=== PATIENT | male | born 1945 | race Caucasian/White ===

== ENCOUNTER → 2017-07-23 06:32 | Outpatient (CLI) | payer MEDICARE, BC, SELFPAY ==
--- NOTE | 2017-07-23 11:27 | STRESSREP ---
Stress Test Report Date: 07/23/2017 Procedure: Exercise tolerance test/imaging study Indications: CAD status post PCI Consent: Per the patient Procedure: The patient exercised on a Roman protocol for 6 minutes completing Stage II achieving a peak heart rate of 130 bpm (87 % predicted maximal heart rate) with a peak blood pressure 172/68 mmHg and a peak MET capacity of 7 METs. The baseline ECG demonstrated normal sinus rhythm. The peak exercise ECG demonstrated somatic/motion artifact with no obvious ECG changes. There was a rare PAC during exercise and an occasional PVC during exercise and recovery. The functional capacity was considered average. There was chest tightness and dyspnea at peak exercise with spontaneous resolution towards baseline in recovery. The examination was discontinued secondary to chest discomfort and dyspnea. Impression: 1. Technically adequate (percent predicted maximal heart rate greater than 85%) exercise tolerance test 2. Peak exercise ECG somatic/motion artifact with no obvious ECG changes 3. There was a rare PAC during exercise and an occasional PVC during exercise and recovery. 4. Nuclear images pending Myocardial perfusion imaging study: Technique: The patient was injected with 14.3 mCi of technetium 99m Cardiolite and subsequently rest SPECT Cardiolite nuclear imaging was obtained in the horizontal long, vertical long, and short axis views. The patient exercised on a Roman protocol for 6 minutes completing Stage II achieving a peak heart rate of 130 bpm (87 % predicted maximal heart rate) with a peak blood pressure 172/68 mmHg and a peak MET capacity of 7 METs. The patient was injected with 44.5 mCi of technetium 99m Cardiolite and subsequently stress SPECT Cardiolite nuclear imaging was obtained in the horizontal long, vertical long, and short axis views. A gated Cardiolite study at peak stress was obtained. Interpretation: Rest and stress SPECT Cardiolite nuclear imaging status post realignment, normalization, and attenuation correction, demonstrates the appearance of relative uniform tracer uptake and myocardial perfusion appearing within normal limits. There is end systolic thickening and brightening. The gated Cardiolite study demonstrates myocardial thickening and inward wall motion. The reported LVEF is 56 %. Impression: 1. Rest and stress SPECT Cardiolite nuclear imaging demonstrate relative uniform tracer uptake and myocardial perfusion appearing within normal limits. 2. The gated Cardiolite study reports an LVEF of 56 %. This note was generated with [employer] software. It may contain incorrect words, spelling, and punctuation that were not noted in checking the note before signing.
--- NOTE | 2017-07-23 11:35 | STRESSREP_ITS ---
Stress Test Report Date: 07/23/2017 Procedure: Exercise tolerance test/imaging study Indications: CAD status post PCI Consent: Per the patient Procedure: The patient exercised on a Roman protocol for 6 minutes completing Stage II achieving a peak heart rate of 130 bpm (87 % predicted maximal heart rate) with a peak blood pressure 172/68 mmHg and a peak MET capacity of 7 METs. The baseline ECG demonstrated normal sinus rhythm. The peak exercise ECG demonstrated somatic/motion artifact with no obvious ECG changes. There was a rare PAC during exercise and an occasional PVC during exercise and recovery. The functional capacity was considered average. There was chest tightness and dyspnea at peak exercise with spontaneous resolution towards baseline in recovery. The examination was discontinued secondary to chest discomfort and dyspnea. Impression: 1. Technically adequate (percent predicted maximal heart rate greater than 85% ) exercise tolerance test 2. Peak exercise ECG somatic/motion artifact with no obvious ECG changes 3. There was a rare PAC during exercise and an occasional PVC during exercise and recovery. 4. Nuclear images pending Myocardial perfusion imaging study: Technique: The patient was injected with 14.3 mCi of technetium 99m Cardiolite and subsequently rest SPECT Cardiolite nuclear imaging was obtained in the horizontal long, vertical long, and short axis views. The patient exercised on a Roman protocol for 6 minutes completing Stage II achieving a peak heart rate of 130 bpm (87 % predicted maximal heart rate) with a peak blood pressure 172/ 68 mmHg and a peak MET capacity of 7 METs. The patient was injected with 44.5 mCi of technetium 99m Cardiolite and subsequently stress SPECT Cardiolite nuclear imaging was obtained in the horizontal long, vertical long, and short axis views. A gated Cardiolite study at peak stress was obtained. Interpretation: Rest and stress SPECT Cardiolite nuclear imaging status post realignment, normalization, and attenuation correction, demonstrates the appearance of relative uniform tracer uptake and myocardial perfusion appearing within normal limits. There is end systolic thickening and brightening. The gated Cardiolite study demonstrates myocardial thickening and inward wall motion. The reported LVEF is 56 %. Impression: 1. Rest and stress SPECT Cardiolite nuclear imaging demonstrate relative uniform tracer uptake and myocardial perfusion appearing within normal limits. 2. The gated Cardiolite study reports an LVEF of 56 %. This note was generated with [employer] software. It may contain incorrect words, spelling, and punctuation that were not noted in checking the note before signing.
== END ==
PROVIDERS: Family Provider Family Medicine; PCP Family Medicine; Visit Provider Internal Medicine Cardiovascular Disease
DX: I25.10 Atherosclerotic heart disease of native coronary artery without angina pectoris (principal); I10 Essential (primary) hypertension
CPT/HCPCS: 78452; 93017; A9500; A4216

== ENCOUNTER 2017-08-04 10:14 | Day surgery (SDC) | payer MEDICARE, BC, SELFPAY ==
[2017-08-04] VITALS (7 sets, daily range): BP systolic 82–110; BP diastolic 32–60; PULSE 56–80; RESP 16–18; TEMP 35.8–36.3; O2SAT 96–99; BMI 34.8
--- NOTE | 2017-08-04 11:47 | COLBX_PTH ---
PATIENT: MARIANELA GUZMAN LOC: EN U#:[id number] AGE/SX: 72/M ROOM: RE08/04/[address]: Dr. Asha Vega MD : 1945 BED: DIS: 08/04/2017 SPEC #: [id number] RECD: 08/04/17 12:07 STATUS: UMANG NATE #: [id number] MATT: 08/04/17 11:[address]: Asha Vega DEPT: SURGICAL PATHOLOGY RECD BY: Rachael Addison ENTERED: 08/04/17 12:51 SP TYPE: COLON BX OTHR DR: Dr. Boston Pozo MD Tissues: POLYP Procedures: Surgery Specimen Level IV HEADER OPERATION: Colonoscopy with polypectomy PRE-OP DIAGNOSIS: Screening TISSUE SUBMITTED: Right colon polyp MICROSCOPIC DIAGNOSIS Right colon polyp, biopsy: Tubular adenoma. AM:[place] 08/05/17 MICROSCOPIC DESCRIPTION Slides are reviewed. GROSS DESCRIPTION Received in fixative is one container labeled with the patient's name and designated right colon polyp. The specimen consists of one irregular fragment of light esqueda soft tissue that measures 0.5 x 0.5 x 0.1 cm. The specimen is totally submitted in one cassette. / AM:[place] 08/04/17 TC:5 CPT: 76933
--- NOTE | 2017-08-04 12:43 | OP.PCM_ITS ---
Report of Operation Date of Procedure: 08/04/17 Pre-Operative Diagnosis: screening for colon cancer Post-Operative Diagnosis: right colon polyp Surgery/Procedure Performed:: colonoscopy with polypectomy with cold snare Description of Surgical Findings:: right colon polyp < 1 cm Type of Anesthesia:: MAC Anesthesiologist: Sivakumar Castillo Specimen's removed: right colon polyp Estimated Blood Loss (mL): none Fluids Replaced: 600 cc RL Description of Procedure: After informed consent was given, the patient was brought to the endoscopy suite and placed in the supine position. Appropriate time out protocol was followed. Appropriate cardiac, blood pressure, and pulse oximetry monitoring was placed. After stable vital signs were noted, the patient was given intravenous conscious sedation by the anesthesia provider. The patient was then placed in the left lateral decubitis position. The colonoscope was lubricated and carefully inserted into the patient?s anus. It was then advanced into the rectum, then into the sigmoid colon, then into the left descending colon, past the splenic flexure, into the transverse colon, past the hepatic flexure, then down into the right descending colon and into the cecum. The cecum was identified by: transillumination, confluence of the tenae coli, identification of the ileocecal valve and appendiceal orifice, and external pressure with indentation. The colon cleansing preparation was adequate. In the right colon, proximally, a small, < 1 cm, polyp was noted. It was removed completely using cold snare device. The colonoscope was slowly retracted back and the entire colonic mucosa was examined. There was no evidence of extrinsic compression and no inflammatory changes were noted. No intraluminal obstructing lesions, no strictures, and no ulcers were noted. No other polyps were noted. Retroflex view in the rectum revealed no lesions in the rectal vault except for hemorrhoidal changes. The colonoscope was removed intact. Patient tolerated procedure well. - Complications none noted
== END 2017-08-04 13:20 | disposition home or self-care (01) ==
LOC: EN 10:14 → AC 10:16
PROVIDERS: Family Provider Family Medicine; PCP Family Medicine; Visit Provider Surgery
PROC: 0DJD8ZZ Inspection of Lower Intestinal Tract, Via Natural or Artificial Opening Endoscopic (ICD-10-PCS; CPT 45378; principal; 2017-08-04 11:25)
DX: Z12.11 Encounter for screening for malignant neoplasm of colon (principal); D12.2 Benign neoplasm of ascending colon; K64.9 Unspecified hemorrhoids; Z86.010 Personal history of colon polyps; D56.3 Thalassemia minor; I25.10 Atherosclerotic heart disease of native coronary artery without angina pectoris; E78.00 Pure hypercholesterolemia, unspecified; I12.9 Hypertensive chronic kidney disease with stage 1 through stage 4 chronic kidney disease, or unspecified chronic kidney disease; N18.3 Chronic kidney disease, stage 3 (moderate); M10.9 Gout, unspecified; M47.896 Other spondylosis, lumbar region; M19.90 Unspecified osteoarthritis, unspecified site; E03.9 Hypothyroidism, unspecified; G25.81 Restless legs syndrome; Z87.19 Personal history of other diseases of the digestive system; Z95.5 Presence of coronary angioplasty implant and graft; Z87.891 Personal history of nicotine dependence; Z79.82 Long term (current) use of aspirin; Z79.899 Other long term (current) drug therapy
CPT/HCPCS: 45385; 88305; J7120

== ENCOUNTER 2017-09-23 07:25 | Emergency (ER) | payer MEDICARE, BC, SELFPAY ==
[2017-09-23 07:26] VITALS: BP 140/73; PULSE 74; RESP 16; TEMP 36.4; O2SAT 95; BMI 35.4
--- NOTE | 2017-09-23 07:47 | CT_ITS ---
STUDY: CT ABDOMEN AND PELVIS WITH CONTRAST REASON FOR EXAM: Male, 72 years old. ABD PAIN RADIATING TO LB AND ABD, PAIN WORSENING OVER LAST 10 WEEKS, HTN,CABG, THALASSEMIA MINOR BLOOD DISORDER, SURG-BILAT INGUINAL HERNIA REPAIR. RADIATION DOSAGE (If Supplied By Facility): CTDIvol = ( 20.13 ) mGy, DLP = ( 2033.92 ) mGycm TECHNIQUE: Transaxial images were obtained from the dome of the diaphragm to the symphysis pubis with oral contrast. 100 ml of Isovue 300 contrast was administered. Sagittal and coronal images were reconstructed. Individualized dose optimization techniques were used for this CT. COMPARISON: None. FINDINGS: The visualized lung bases are unremarkable. The visualized portions of the heart are within normal limits. There is decreased attenuation of the liver consistent with steatosis. Normal gallbladder and extrahepatic biliary system. Normal spleen. Normal pancreas. Normal bilateral adrenal glands. Normal right kidney. Normal left kidney. Normal visualized stomach. Normal small intestine. There are multiple colonic diverticula consistent with diverticulosis. The appendix is visualized and appears normal. There is diffuse atherosclerotic calcification of the abdominal aorta, without a demonstrated aneurysm. Normal inferior vena cava. Normal retroperitoneum. Normal urinary bladder. Normal abdominal wall. There are diffuse degenerative changes of the visualized lumbar spine. CT/Abdomen/Pelvis WITH Contrast IMPRESSION: Diverticulosis. Liver steatosis. Electronically Signed: Catrina Field MD at 10:30 EDT Tel , Service support ,
[2017-09-23 08:28] LABS: ALB/GLOB Ratio 0.9 RATIO (0.9-2.4); AST(SGOT) 37 U/L (15-37); Absolute Neutrophil Count 5.2 X10^3/uL (2.0-7.7); Alanine Aminotransfer ALT/SGPT 48 U/L (16-61); Albumin, Serum 3.6 g/dL (3.2-5.0); Alkaline Phosphatase 89 U/L (45-117); Anion Gap 9 (5-15); BUN 19 mg/dL (7-18); BUN/Creat Ratio 17.9 RATIO (10-20); Basophil# 0.01 X10^3/uL; Basophil% 0.1 % (0-1); Calcium,Total 8.9 mg/dL (8.5-10.1); Chloride 105 mmol/L (98-107); Creatinine, Serum 1.06 mg/dL (0.70-1.30); EST Glomerular Filtration Rate 73 mL/min (>60); Eosinophil# 0.37 X10^3/uL; Eosinophils% 4.4 % (0-5); Est Glom Filt Rate - Afr Amer 89 mL/min (>60); Estimated Creatinine Clearance 57.68 ml/min; Globulin 3.8 g/dL (2.2-4.2); Glucose 105 mg/dL (74-106); Hematocrit 35.4 % (40-54); Hemoglobin 11.4 g/dl (13.0-16.5); Lipase 226 U/L (73-393); Lymphocyte % 22.6 % (19-41); Mean Corp Hgb Conc 32.2 g/gl (32-36); Mean Corpuscular Hgb 20.9 pg (27.0-32.0); Mean Corpuscular Volume 64.8 fL (80-94); Monocyte# 0.88 X10^3/uL; Monocyte% 10.5 % (0-10); Neutrophil # 5.24 X10^3/uL (2.7-7.7); Neutrophil % 62.2 % (47-70); Platelet Count 125 K/mm3 (150-450); Potassium 4.1 mmol/L (3.5-5.1); Protein, Total 7.4 g/dL (6.4-8.2); RBC Distribution Width CV 17.9 % (11.6-14.6); Red Blood Count 5.46 M/mm3 (4.6-6.2); Sodium Level 139 mmol/L (136-145); White Blood Count 8.4 K/mm3 (4.4-11.0)
[2017-09-23 08:52] LABS: Differential Indicated SCAN CRITERIA MET; POSITIVE COUNT NO; POSITIVE DIFFERENTIAL NO; POSITIVE MORPHOLOGY YES
[2017-09-23 08:53] LABS: Anisocytosis RARE; Basophilic Stippling 1+; Platelet Estimate ADEQUATE (ADEQ)
[2017-09-23 08:54] LABS: Ovalocyte RARE; Tear Drop Cell 1+
[2017-09-23] MEDS: Ondansetron 4 MG/2 ML Vial IV (09:21)
[2017-09-23] MEDS: Morphine 4 MG/ML Syringe IV (09:21)
[2017-09-23 09:43] LABS: Bacteria 0 SEEN /hpf (None Seen); Color, Urine Yellow (Yellow); Glucose, Dipstick NEGATIVE (Normal); Ketone-Dipstick Negative (Negative); Mucous, Urine 0 SEEN /hpf (<or=2+); Red Blood Cells-Urine 0 SEEN /hpf (0-5); Squamous Epithelial Cells - UA 0 SEEN /hpf (0-5); Urine Bilirubin Dipstick Negative (Negative); Urine Clarity Clear (Clear); White Blood Cells 0 SEEN /hpf (0-5)
[2017-09-23 09:44] LABS: Leukocyte Esterase-Dipstick Negative /ul (Negative); Nitrite-Dipstick Negative (Negative); Occult Blood-Urine Negative /ul (Negative); Protein-Dipstick Negative (Negative); Urine Urobilinogen Normal (Normal)
--- NOTE | 2017-09-23 10:56 | ED.VISSUMM ---
- ER Visit Summary Date of Service: 09/23/17 Chief Complaint: Abdominal pain History of Present Illness: The patient is a 72 M who presents with abdominal pain. This is been present for 10 weeks. He complains of lower abdominal pain which radiates through to the back. There is no associated fever nausea vomiting diarrhea or urinary impotence. He saw the nurse practitioner at his primary care physician's office and was diagnosed with an iliopsoas strain. He was referred to orthopedics. He had x-rays and was told by orthopedics that they did not think that his pain was related to his back. His pain was worse today so he presented here. He describes his pain as sharp and burning. He has a history of prior similar symptoms which usually resolved after a couple of weeks. Physical Examination: Afebrile vitals are stable Moist mucous membranes Heart regular rate and rhythm Lungs clear Abdomen soft nondistended he has some mild diffuse nonfocal tenderness no guarding no rebound Alert Test Results: Labs notable for hemoglobin 11.4. Hepatic function lipase urinalysis all normal. CT of the abdomen and pelvis shows diverticulosis and liver steatosis but no other acute process. Emergency Department Course and Treatment: She initially declined any medications. He later did complain of increasing pain and was given morphine and Zofran with about a 50% relief of symptoms. I explained to him that his workup is unremarkable here and I do not have a clear explanation of his symptoms but he does not appear to have surgical or life-threatening pathology at this time. He was advised to follow-up as an outpatient. He has an appointment in a week with his primary care physician. I also advised that he may benefit from a gastroenterology referral. He does complain that his pain is cramping at times throughout the abdomen so we will also try Bentyl. He understands to return for new or worsening symptoms and was instructed on specific signs and symptoms to monitor for. Treatment Plan: [] Disposition: Discharge Impression: Abdominal pain This note was generated with [employer] dictation software. It may contain incorrect words, spelling, and punctuation that were not noted in review of the chart prior to signing ED Disposition - Plan for ED Patient: Chief Complaint: Abd Pain Referrals: Boston Pozo MD [Primary Care Provider] -
--- NOTE | 2017-09-23 11:02 | ED.DEP ---
ED Disposition - Plan for ED Patient: Chief Complaint: Abd Pain Instructions: ED Abdominal Pain Unkn Cause Male Prescriptions: Dicyclomine HCl [Bentyl] 20 mg PO TID #20 cap Referrals: Boston Pozo MD [Primary Care Provider] -
[2017-09-23 11:16] VITALS: BP 135/54; PULSE 51; RESP 16; O2SAT 100
== END 2017-09-23 11:17 | disposition home or self-care (01) ==
LOC: ED 07:49
PROVIDERS: Emergency Provider Emergency Medicine; Family Provider Family Medicine; PCP Family Medicine
DX: R10.30 Lower abdominal pain, unspecified (principal); M54.5 Low back pain; K76.0 Fatty (change of) liver, not elsewhere classified; K57.30 Diverticulosis of large intestine without perforation or abscess without bleeding; I25.10 Atherosclerotic heart disease of native coronary artery without angina pectoris; I10 Essential (primary) hypertension; E78.00 Pure hypercholesterolemia, unspecified; E03.9 Hypothyroidism, unspecified; Z79.82 Long term (current) use of aspirin; Z79.899 Other long term (current) drug therapy
CPT/HCPCS: 74177; 80053; 81001; 83690; 85025; 96374; 96375; 99283; Q9967; A4216; J2405

== ENCOUNTER → 2018-03-05 09:17 | Outpatient (CLI) | payer MEDICARE, BC, SELFPAY ==
--- NOTE | 2018-03-05 09:22 | US_ITS ---
STUDY: SCROTUM ULTRASOUND REASON FOR EXAM: Male, 72 years old. Pain TECHNIQUE: Ultrasound evaluation of the scrotum was performed with color Doppler and static nielson-scale imaging. COMPARISON: None. FINDINGS: RIGHT TESTICLE INTRATESTICULAR: There is a normal size of the right testicle. The right testicle measures 8.4 x 2.2 x 1.3 cm. There is a homogenous echotexture. There is normal arterial and normal venous vascularity. There is no demonstrated right testicular mass or cyst. EXTRATESTICULAR: The epididymis is normal in size. The epididymis head measures 0.9 x 0.6 x 0.9 cm. There is normal vascularity of the epididymis. There is a millimeter well-defined cystic structure within the epididymis, without internal echoes, consistent with an epididymal cyst. There is a small hydrocele. There is no demonstrated varicocele. There is no demonstrated extratesticular mass or cyst. LEFT TESTICLE INTRATESTICULAR: There is a normal size of the left testicle. The left testicle measures 2.7 x 2.7 x 1.5 cm. There is a homogenous echotexture. There is normal arterial and normal venous vascularity. There is no demonstrated left testicular mass or cyst. EXTRATESTICULAR: The epididymis is normal in size. The epididymis head measures 0.6 x 0.8 x 0.5 cm. There is normal vascularity of the epididymis. There is no demonstrated epididymal cystic structure. There is no demonstrated hydrocele. There is partial visualization of distended vascular structures on the grayscale images were. These were not evaluated with Valsalva. There is no demonstrated extratesticular mass or cyst. Bilateral groin soft tissue is evaluated. Only Fatty tissue is demonstrated no peristalsing bowel is demonstrated. US/Testicular with Arterial Flow IMPRESSION: No evidence of torsion. No evidence of testicular mass. Small right side hydrocele. Possible left-sided varicocele. Could repeat this study with Valsalva evaluation if appropriate. Electronically Signed: Freida Hui MD at 10:35 EST Tel , Service support ,
== END ==
PROVIDERS: Family Provider Family Medicine; PCP Family Medicine; Referring Provider Nurse Practitioner Adult Health; Visit Provider Nurse Practitioner Adult Health
DX: N50.819 Testicular pain, unspecified (principal)
CPT/HCPCS: 76870; 93976

== ENCOUNTER → 2018-09-20 | Outpatient (CLI) | payer MEDICARE, BC, SELFPAY ==
[2018-07-14 09:58] VITALS: BMI 32.3
--- NOTE | 2018-09-20 17:35 | RAD_ITS ---
HISTORY: bilateral hip pain XR Hips Bilateral with Pelvis when performed; 2 Views TECHNIQUE: 5 views # of images incl. paperwork: 5 COMPARISON: None. FINDINGS: No acute fracture or dislocation. Mild osteoarthritis of bilateral hip joints, left greater than right. Sacroiliac joints are unremarkable. Mild degenerative changes of lower lumbar spine. Moderate ASVD. Soft tissues appear unremarkable. No radiopaque foreign body. RAD/Hips B/L min 2 views w/ Pelvis IMPRESSION: 1. No acute fracture. 2. Mild osteoarthritis of bilateral hip joints, left greater than right. at 0315 Reported and signed by: Juwan Pearce MD Electronically Signed: Juwan Pearce MD at 3:14 EDT Tel , Service support ,
== END | disposition home or self-care (01) ==
LOC: RAD 17:38
PROVIDERS: Family Provider Family Medicine; PCP Family Medicine; Referring Provider Anesthesiology Pain Medicine; Visit Provider Anesthesiology Pain Medicine
DX: M25.551 Pain in right hip (principal); M25.552 Pain in left hip
CPT/HCPCS: 73521

== ENCOUNTER → 2020-06-11 10:54 | Outpatient (CLI) | payer MEDICARE, OTHER, SELFPAY ==
[2020-05-20 14:24] VITALS: BMI 33.3
[2020-06-11 12:12] LABS: Absolute Lymphocyte Count 1.14 X10^3/uL (0.83-4.51); Absolute Neutrophil Count 12.6 X10^3/uL (2.0-7.7); Basophil# 0.06 X10^3/uL; Basophil% 0.4 % (0-1); Eosinophil# 0.12 X10^3/uL; Eosinophils% 0.8 % (0-5); Hematocrit 35.9 % (40-54); Hemoglobin 11.5 g/dL (13.0-16.5); Lymphocyte # 1.14 X10^3/ul (4.0); Lymphocyte % 7.5 % (19-41); Mean Corpuscular Hgb 21.2 pg (27.0-32.0); Mean Corpuscular Volume 66.1 fL (80-94); Monocyte# 1.21 X10^3/uL; Monocyte% 7.9 % (0-10); NRBC Flagged by Analyzer 0.1 % (0-5); Neutrophil # 12.55 X10^3/uL (2.7-7.7); Neutrophil % 82.1 % (47-70); Platelet Count 151 K/mm3 (150-450); RBC Distribution Width CV 18.4 % (11.6-14.6); RBC Distribution Width SD 38.5 fl (35.1-43.9); Red Blood Count 5.43 M/mm3 (4.6-6.2); White Blood Count 15.3 K/mm3 (4.4-11.0)
[2020-06-11 12:58] LABS: ALB/GLOB Ratio 1.1 RATIO (0.9-2.4); AST(SGOT) 20 U/L (15-37); Alanine Aminotransfer ALT/SGPT 43 U/L (16-61); Albumin, Serum 3.9 g/dL (3.2-5.0); Alkaline Phosphatase 119 U/L (45-117); Anion Gap 9 (5-15); BUN 20 mg/dL (7-18); BUN/Creat Ratio 19.4 RATIO (10-20); Calcium,Total 9.3 mg/dL (8.5-10.1); Chloride 102 mmol/L (98-107); Creatinine, Serum 1.03 mg/dL (0.70-1.30); EST Glomerular Filtration Rate 75 mL/min (>60); Est Glom Filt Rate - Afr Amer 91 mL/min (>60); Globulin 3.6 g/dL (2.2-4.2); Glucose 87 mg/dL (74-106); Potassium 4.1 mmol/L (3.5-5.1); Protein, Total 7.5 g/dL (6.4-8.2); Sodium Level 137 mmol/L (136-145)
== END ==
PROVIDERS: PCP Family Medicine; Referring Provider Podiatrist; Visit Provider Podiatrist
DX: M10.9 Gout, unspecified (principal)
CPT/HCPCS: 36415; 80053; 84550; 85025

== ENCOUNTER 2021-06-19 16:45 | Outpatient (CLI) | payer MEDICARE, OTHER, SELFPAY ==
--- NOTE | 2021-06-19 16:58 | CT_ITS ---
EXAM: CT Maxillofacial Sinuses Without Intravenous Contrast CLINICAL INDICATION: 76 years old, Male; SINUSITIS TECHNIQUE: Helically acquired images were obtained of the maxillofacial sinuses without intravenous contrast. This CT exam was performed using one or more of the following dose reduction techniques: automated exposure control, adjustment of the mA and/or kV according to patient size, and/or use of iterative reconstruction technique. This report was created using [employer] report generation technology. COMPARISON: None. FINDINGS: Maxillary sinuses: Air-fluid levels in the maxillary sinuses concerning for acute sinusitis. Ostiomeatal complexes are normally formed. Sphenoid sinuses: Clear. Frontal sinuses: Clear. Ethmoid air cells: Clear. Nasal cavity/septum: Nasal septal perforation. Nasal turbinates are unremarkable. Bones/joints: Anterior cranial fossa is unremarkable. Orbits: Unremarkable. Dental: Unremarkable as visualized. No periodontal osseous erosion. CT/Sinus/Facial Bone IMPRESSION: Air-fluid levels in the maxillary sinuses concerning for acute sinusitis. Electronically Signed: Apolinar Alonzo MD at 5:12 EST ,
== END 2021-06-19 23:59 | disposition home or self-care (01) ==
LOC: CT 16:49
PROVIDERS: PCP Family Medicine; Referring Provider Otolaryngology; Visit Provider Otolaryngology
DX: J32.9 Chronic sinusitis, unspecified (principal)
CPT/HCPCS: 70486

== ENCOUNTER 2022-03-07 09:23 | Outpatient (CLI) | payer MEDICARE, OTHER, SELFPAY ==
--- NOTE | 2022-03-07 10:00 | MRI_ITS ---
STUDY: MR Rearfoot W/O Contrast 03/07/2022 4:23 PM REASON FOR EXAM: Male, 76 years old. LEFT FOOT PAIN History, Signs T Symptoms LEFT calcaneal spur,arthritis midfoot, gout,tendinitis TECHNIQUE: Standardized fat and water weighted pulse sequences were obtained in all 3 orthogonal planes. COMPARISON: None. FINDINGS: There is an enthesophyte involving the posterior superior calcaneus at the site of insertion of the Achilles tendon.Normal posterior tibialis tendon. Normal flexor digitorum longus tendon. Normal flexor hallucis longus tendon. Normal peroneus longus and brevis tendons. Normal tibialis anterior tendon. Normal extensor hallucis longus tendon. Normal extensor digitorum longus tendons. Normal visualized subtalar, talonavicular, calcaneocuboid, tarsal and tarsometatarsal articulations. There is a calcaneal spur. Normal metatarsi. There is tenosynovitis of the of the Achilles tendon without a partial or full-thickness tear. Normal plantar fascia. Normal plantar calcaneal tubercles. Normal intrinsic muscles of the rearfoot. Normal tibiotalar articulation. Normal talar dome. Normal subtalar articulations. Normal talonavicular articulation. Normal calcaneocuboid articulation. Normal navicular-cuneiform articulations. The soft tissue structures are unremarkable. MRI/Lower Ext/No Jt/w/o IMPRESSION: There is a calcaneal spur. There is tenosynovitis of the of the Achilles tendon without a partial or full-thickness tear. Electronically Signed: Jose Michaud MD at 16:29 EST ,
== END 2022-03-07 23:59 | disposition home or self-care (01) ==
LOC: MRI 09:23
PROVIDERS: PCP Family Medicine; Visit Provider Podiatrist
DX: M77.30 Calcaneal spur, unspecified foot (principal); M10.9 Gout, unspecified; M76.60 Achilles tendinitis, unspecified leg; M13.879 Other specified arthritis, unspecified ankle and foot
CPT/HCPCS: 73718

== ENCOUNTER 2022-03-10 13:51 | Outpatient (CLI) | payer MEDICARE, OTHER, SELFPAY ==
--- NOTE | 2022-03-10 13:54 | VDLE_ITS ---
Reason For Study: SWELLING L?R RIGHT LEFT CFV is compressible, spontaneous, phasic, GSV is normal. competent and demonstrates normal CFV is compressible, spontaneous, phasic, augmentation. competent, and demonstrates normal GSV is normal. augmentation. FV is compressible, spontaneous, phasic, FV is compressible, spontaneous, phasic, competent and demonstrates normal competent and demonstrates normal augmentation. augmentation. POP V is compressible, spontaneous, phasic, POP V is compressible, spontaneous, phasic, competent and demonstrates normal competent and demonstrates normal augmentation. augmentation. T/P Trunk is compressible. T/P Trunk is compressible. PTV is compressible. PTV is compressible. RT PerV is compressible. LT PerV is compressible. Procedure This is a venous duplex using B-mode, color flow and spectral Doppler. Exam performed in department. The study was technically difficult. A preliminary report was called and/or faxed to Dr. Cary @ [phone] @ 2:45 pm,. VL/Venous Duplex US - Ronnie Extrem Interpretation Summary Deep veins of the lower extremities are bilaterally patent and compressible seg mentally. There is no evidence of deep vein thrombosis on either side. Valvular competence appears in tact within the proximal deep venous systems bilaterally. The great saphenous veins appear bila terally patent and compressible segmentally. Ordering Physician: Doug Cary Referring Physician: Marilynn Pozo Performed By: Jamel Fall MD
== END 2022-03-10 23:59 | disposition home or self-care (01) ==
LOC: CVS 13:52
PROVIDERS: PCP Family Medicine; Visit Provider Podiatrist
DX: R60.0 Localized edema (principal); I82.409 Acute embolism and thrombosis of unspecified deep veins of unspecified lower extremity
CPT/HCPCS: 93970

== ENCOUNTER 2022-03-11 07:57 | Outpatient (CLI) | payer MEDICARE, OTHER, SELFPAY ==
[2022-03-11 10:15] LABS: Hematocrit 34.4 % (40-54); Hemoglobin 10.6 g/dL (13.0-16.5); Mean Corp Hgb Conc 30.8 g/dL (32-36); Mean Corpuscular Hgb 20.7 pg (27.0-32.0); Mean Corpuscular Volume 67.1 fL (80-94); Platelet Count 133 K/mm3 (150-450); RBC Distribution Width CV 18.7 % (11.6-14.6); RBC Distribution Width SD 41.9 fl (35.1-43.9); Red Blood Count 5.13 M/mm3 (4.6-6.2); White Blood Count 14.7 K/mm3 (4.4-11.0)
[2022-03-11 10:34] LABS: Vitamin B12 401 pg/mL (211-911)
[2022-03-11 10:46] LABS: ALB/GLOB Ratio 1.2 RATIO (0.9-2.4); AST(SGOT) 30 U/L (15-37); Alanine Aminotransfer ALT/SGPT 57 U/L (16-61); Albumin, Serum 3.4 g/dL (3.2-5.0); Alkaline Phosphatase 95 U/L (45-117); Anion Gap 9 (5-15); BUN 14 mg/dL (7-18); Calcium,Total 8.9 mg/dL (8.5-10.1); Chloride 107 mmol/L (98-107); EST Glomerular Filtration Rate 77 mL/min (>60); Est Glom Filt Rate - Afr Amer 94 mL/min (>60); Free T3 2.3 pg/mL (2.18-3.98); Globulin 2.8 g/dL (2.2-4.2); Glucose 98 mg/dL (74-106); Potassium 4.2 mmol/L (3.5-5.1); Protein, Total 6.2 g/dL (6.4-8.2); Sodium Level 142 mmol/L (136-145); Thyroid Stim Hormone (TSH) 4.89 uIU/mL (0.358-3.74)
[2022-03-11 15:20] LABS: Uric Acid 6.3 mg/dL (3.5-7.2)
[2022-03-14 14:08] LABS: Free Kappa Light Chains 34.7 mg/L (3.3-19.4); Free Lambda Light Chains 25.7 mg/L (5.7-26.3)
== END 2022-03-11 23:59 | disposition home or self-care (01) ==
LOC: MTLAB 07:59
PROVIDERS: PCP Family Medicine; Referring Provider Psychiatry & Neurology Neurology; Visit Provider Psychiatry & Neurology Neurology
DX: I10 Essential (primary) hypertension (principal); G62.9 Polyneuropathy, unspecified; E03.9 Hypothyroidism, unspecified
CPT/HCPCS: 36415; 80053; 82607; 82746; 83883; 84425; 84439; 84443; 84481; 84550; 85027

== ENCOUNTER → 2022-03-20 | Outpatient (CLI) | payer MEDICARE, OTHER, SELFPAY ==
[2022-03-24 15:07] LABS: Albumin 3.4 g/dL (2.9-4.4); Alpha-1-Globulins 0.3 g/dL (0.0-0.4); Alpha-2-Globulins 0.8 g/dL (0.4-1.0); Immunoglobulin A 131 mg/dL (61-437); Immunoglobulin G 852 mg/dL (603-1613); Immunoglobulin M 241 mg/dL (15-143); PROEL- TOTAL PROTEIN 6.4 g/dL (6.0-8.5)
[2022-03-26 10:23] LABS: IMMUNOFIXATION RESULT,S Comment: (.)
== END | disposition home or self-care (01) ==
LOC: MTLAB 09:16
PROVIDERS: PCP Family Medicine; Referring Provider Psychiatry & Neurology Neurology; Visit Provider Psychiatry & Neurology Neurology
DX: G62.9 Polyneuropathy, unspecified (principal)
CPT/HCPCS: 36415; 82784; 84165; 86334; 86335

== ENCOUNTER → 2022-03-23 | Outpatient (CLI) | payer MEDICARE, OTHER, SELFPAY ==
--- NOTE | 2022-03-23 09:51 | VDLE_ITS ---
Reason For Study: Venous insuffiency RIGHT LEFT CFV is compressible, spontaneous, phasic, CFV is compressible, spontaneous, phasic, competent and demonstrates normal competent, and demonstrates normal augmentation. augmentation. FV is compressible, spontaneous, phasic, FV is compressible, spontaneous, phasic, competent and demonstrates normal competent and demonstrates normal augmentation. augmentation. POP V is compressible, spontaneous, phasic, POP V is compressible, spontaneous, phasic, competent and demonstrates normal competent and demonstrates normal augmentation. augmentation. T/P Trunk is compressible. T/P Trunk is compressible. PTV is compressible. PTV is compressible. RT PerV is compressible. LT PerV is compressible. SFJ is competent and measures 0.61 x 0.51 cm. SFJ is competent and measures 0.68 x 0.72 cm. GSV proximal thigh measures 0.38 x 0.36 cm. GSV proximal thigh measures 0.44 x 0.43 cm. GSV at knee measures 0.35 x 0.34 cm. GSV at knee measures 0.33 x 0.37 cm. GSV is competent throughout. GSV is competent throughout. SSV proximal calf is competent and measures SSV at junction is competent and measures 0.34 x 0.34 cm. 0.15 x 0.16 cm. Procedure This is a venous duplex using B-mode, color flow and spectral Doppler. Exam performed in department. VL/Venous Duplex US - Ronnie Extrem Interpretation Summary Deep veins of the bilateral lower extremities are patent and compressible segme ntally. There is no evidence of bilateral lower extremity deep vein thrombosis. The bilateral great saphenous veins appear patent and compressible segmentally. Negative for reflux bilateral Ordering Physician: Doug Cary Referring Physician: Simone Pozo Performed By: Magdalena Batista RVT
--- NOTE | 2022-03-23 09:52 | ART_ITS ---
Reason For Study: PVD Procedure A bilateral lower extremity continuous wave Doppler with analog waveform analysis,segmental pressures,and ankle brachial indexes without exercise. Left Segmental Pressures Left brachial= 115mmHg. Left thigh = 135mmHg. Left calf = 63mmHg. Left posterior tibial artery = 76mmHg. Left dorsalis pedis artery = 59mmHg. Left digit = 48 mmHg. The left dorsalis pedis waveforms are monophasic. The left posterior tibial artery waveforms are monophasic. Right Segmental Pressures Right brachial= 112mmHg. Right posterior tibial artery = 123mmHg. Right dorsalis pedis artery = 113mmHg. Right digit = 76 mmHg. The right dorsalis pedis waveforms are triphasic. The right posterior tibial artery waveforms are triphasic. Indices The right ankle brachial index by the dorsalis pedis is 0.98. The right ankle brachial index by the posterior tibial artery is 1.07. The right digital-brachial index is 0.66. The left ankle brachial index by the dorsalis pedis is 0.51. The left ankle brachial index by the posterior tibial artery is 0.66. The left digital-brachial index is 0.42. VL/Lower Ext Art Exam w/o Exercis Interpretation Summary Right MIN 1.07, normal. Doppler/PVR waveforms of the right leg normal at rest. TBI and digit waveforms diminished, pedal/digit disease vs spasm. Left MIN 0.66, moderate arterial insufficiency. Doppler/PVR waveforms and segme ntal pressures reveal distal SFA/popliteal disease Ordering Physician: Doug Cary Referring Physician: Simone Pozo Performed By: Magdalena Batista RVT
== END | disposition home or self-care (01) ==
LOC: CVS 09:50
PROVIDERS: PCP Family Medicine; Referring Provider Podiatrist; Visit Provider Podiatrist
DX: I73.9 Peripheral vascular disease, unspecified (principal); I87.2 Venous insufficiency (chronic) (peripheral); M79.672 Pain in left foot
CPT/HCPCS: 93923; 93970

== ENCOUNTER → 2022-04-29 | Outpatient (CLI) | payer MEDICARE, OTHER, SELFPAY ==
--- NOTE | 2022-04-29 10:22 | NEURO ---
NCS and/or EMG Patient Report Ordering Doctor: Kevin Hull DATE OF SERVICE: 04/29/22 Ethan presents for electrodiagnostic testing of the lower limbs. He reports numbness and tingling in both feet. Electrodiagnostic Findings: Peroneal motor nerve demonstrates normal distal latency and amplitude with reduced conduction velocity on the left side. Tibial motor response demonstrates normal distal latency and amplitude bilaterally with borderline reduced conduction velocities. Prolonged right peroneal and left tibial F wave. Prolonged H reflex bilaterally. Prolonged sural latency is noted bilaterally. Prolonged left superficial peroneal latency. Borderline prolonged right superficial peroneal latency. Medial plantar responses are within normal limits. On needle EMG, all muscles tested in the lower limbs, as well as lumbar paraspinals, showed no evidence of denervation with normal motor unit action potentials Electrodiagnostic impression: This is an abnormal study in the lower limbs 1. 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 2. No electrodiagnostic evidence is noted for lumbosacral radiculopathy.
== END | disposition home or self-care (01) ==
LOC: PSN 08:41
PROVIDERS: PCP Family Medicine; Referring Provider Psychiatry & Neurology Neurology; Visit Provider Psychiatry & Neurology Neurology
DX: R20.0 Anesthesia of skin (principal); G62.9 Polyneuropathy, unspecified
CPT/HCPCS: 95886; 95912

== ENCOUNTER → 2022-05-22 | Outpatient (CLI) | payer MEDICARE, OTHER, SELFPAY | END | disposition home or self-care (01) | LOC: MTLAB 08:10 | PROVIDERS: PCP Family Medicine; Referring Provider Psychiatry & Neurology Neurology; Visit Provider Psychiatry & Neurology Neurology | DX: G25.0 Essential tremor (principal) | CPT/HCPCS: 36415; 80184; 80188 ==

== ENCOUNTER → 2022-09-29 | Outpatient (CLI) | payer MEDICARE, OTHER, SELFPAY ==
[2022-10-01 15:08] LABS: Albumin 3.7 g/dL (2.9-4.4); Alpha-1-Globulins 0.3 g/dL (0.0-0.4); Alpha-2-Globulins 0.9 g/dL (0.4-1.0); Free Kappa Light Chains 69.5 mg/L (3.3-19.4); Free Lambda Light Chains 35.5 mg/L (5.7-26.3); Gamma Globulin 1.4 g/dL (0.4-1.8); Immunoglobulin A 198 mg/dL (61-437); Immunoglobulin G 1244 mg/dL (603-1613); Immunoglobulin M 196 mg/dL (15-143); PROEL- TOTAL PROTEIN 7.2 g/dL (6.0-8.5)
== END | disposition home or self-care (01) ==
LOC: MTLAB 15:54
PROVIDERS: PCP Family Medicine; Referring Provider Psychiatry & Neurology Neurology; Visit Provider Psychiatry & Neurology Neurology
DX: G62.9 Polyneuropathy, unspecified (principal)
CPT/HCPCS: 36415; 82784; 83883; 84165; 86334

== ENCOUNTER 2022-11-04 08:46 | Outpatient (RCR) | payer MEDICARE, OTHER, SELFPAY ==
[2022-11-04 09:18] VITALS: BP 105/58; PULSE 80; RESP 18; TEMP 36.4; BMI 27.2
--- NOTE | 2022-11-04 12:40 | HP.PCM_ITS ---
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 Patient was healing well until this 1 little area just refuses to close. Has been using bacitracin on it and that is all [facility] Medical History Arthritis Atherosclerotic heart disease of [place] coronary artery without angina pectoris Bone fracture Cataracts, bilateral Chronic bronchitis CKD (chronic kidney disease) stage 3, GFR 30-59 ml/min Essential hypertension Gout History of back problems Hyperlipemia Hypothyroidism Low back pain Home Medications atenolol 50 mg tablet 50 mg PO QHS 08/03/17 [History Last Taken Unknown] atorvastatin 40 mg tablet 40 mg PO QHS 08/03/17 [History Last Taken Unknown] psyllium husk 0.52 gram capsule (Daily Fiber) 0.52 g PO DAILY 01/13/18 [History Last Taken Unknown] levothyroxine 50 mcg tablet 75 mcg PO DAILY 09/29/19 [History Last Taken Unknown] lisinopril 30 mg tablet 30 mg PO DAILY 12/05/20 [History Last Taken Unknown] aspirin 81 mg tablet,delayed release (Adult Aspirin Regimen) 81 mg PO .COMPLEX 10/20/21 [History Last Taken Unknown] allopurinol 100 mg tablet 300 mg PO QHS 06/11/22 [History Last Taken Unknown] oxycodone 5 mg tablet 2.5 mg PO TID PRN 06/11/22 [History Last Taken Unknown] nitroglycerin 0.4 mg sublingual tablet 0.4 mg sublingual Q5-15M PRN chest pain #25 tabs 06/15/22 [Rx Last Taken Unknown] primidone 50 mg tablet 50 mg .Route QAM #30 tabs 08/10/22 [Rx Last Taken Unknown] Allergy/AdvReac Type Severity Reaction Status Date / Time doxycycline AdvReac Intermediate Rash Verified 09/29/22 14:50 Family History Father CAD (coronary artery disease) Hypertension Congestive heart failure Heart disease Brother Hypertension Heart disease Mother Ovarian cancer Surgical History History of arthroscopy of shoulder History of cardiac catheterization History of inguinal hernia repair History of repair of rotator cuff Postsurgical percutaneous transluminal coronary angioplasty (PTCA) status Presence of stent in coronary artery (~01/29/14) Social History Smoking Status: Former smoker Tobacco: How many years used: 30 second hand exposure: No alcohol intake: current substance use type: does not use what type of physical activity do you participate in: none magaly/adventist: [employer] seatbelt use: always ROS Constitutional Constitutional: Reports systems reviewed and no addt'l complaints, except as documented Eyes Eyes: Reports systems reviewed and no addt'l complaints, except as documented ENT HEENT: Reports systems reviewed and no addt'l complaints, except as documented Cardiovascular Cardiovascular: Reports systems reviewed and no addt'l complaints, except as documented Respiratory/Chest Respiratory/Chest: Reports systems reviewed and no addt'l complaints, except as documented Gastrointestinal Gastrointestinal: Reports systems reviewed and no addt'l complaints, except as documented Genitourinary Genitourinary: Reports systems reviewed and no addt'l complaints, except as documented Musculoskeletal Musculoskeletal: Reports systems reviewed and no addt'l complaints, except as documented Integumentary Integumentary: Reports wounds and other Details: Open wound left axilla from postoperative dehiscence from August Neurologic Neurologic: Reports systems reviewed and no addt'l complaints, except as documented Psychiatric Psychiatric: Reports systems reviewed and no addt'l complaints, except as documented Endocrine Endocrinology: Reports systems reviewed and no addt'l complaints, except as documented Hematologic/Lymphatic Hematologic/Lymphatic: Reports systems reviewed and no addt'l complaints, except as documented Allergic/Immunologic Allergic/Immunologic: Reports systems reviewed and no addt'l complaints, except as documented Vital Signs Vital Signs Vital Signs: 11/04/22 09:18 Temperature 97.5 F L Temperature Source Temporal Pulse Rate 80 Respiratory Rate 18 Blood Pressure 105/58 L Blood Pressure Mean 73 Blood Pressure Source Monitor Blood Pressure Position Semi-Fowlers Blood Pressure Location Left Arm Weight Weight: 169 lb Body Mass Index (BMI) 27.2 Physical Exam Const oriented x3 General Appearance: cooperative Exam Limitations: no limitations HEENT normocephalic Face and Sinus: normal facial exam Eyes General Eye: normal appearance of both eyes Neck full ROM General: normal visual inspection Resp normal respiratory effort Effort and Inspection: able to speak in complete sentences Auscultation: clear to auscultation bilaterally Cardio regular rate and regular rhythm Palpation: normal PMI Rate: regular rate Rhythm: regular rhythm Skin Wounds: wounds noted Wound Narrative: Open wound under the left axilla in the surgical line. Has positive depth Neuro oriented x3 Psych Appearance: grossly normal Speech: normal speech Thought Content: normal thought content Judgement: judgement good Debridement Note Debridement Note Wound debrided: Surgical wound nonhealing Laterality: Left Type of Debridement: Excisional debridement Anesthesia Used: 5% Lidocaine Gel Depth: Down to and including healthy tissue Percentage of wound debrided: 100 Instrument Used: 3mm curette Tissue Removed: Fibrin Severity: Fat Layer Exposed Amount of bleeding with debridement: Mild Bleeding Controlled with: Compression and gauze Patient tolerated procedure: Patient tolerated procedure well Post-Debridement Measurements and Additional Note: Post-Debridement Measurements/Treatment - Nurse 1 - General Ulcer Assessment Start: 11/04/22 09:18 Freq: Status: Active Protocol: MIHIR.LOWEXT Activity Type Activity Date Activity User E-sign Co-sign Detail Recorded Client Recorded Date Recorded By Document 11/04/22 09:18 [id number] 11/04/22 09:21 11/04/22 09:18 - Today's Visit Information Type of service Follow-up Visit (Physician/EXECUTIVE RECEPTIONIST ) Arrival Mode Ambulatory Transfer Assistance None Patient Identification Verified (Name & Yes ) Patient Requires Transmission-Based No Precautions Height and Weight Height 5 ft 6 in Weight 169 lb Weight in Pounds 169.0 lbs Body Mass Index (BMI) 27.2 BMI Classification Overweight BSA - Amanda 1.86 Vital Signs Temperature (97.8 F-99.1 F) 97.5 F L Temperature Source Temporal Pulse Rate (60-100) 80 Pulse Location Monitor Respiratory Rate (12-18) 18 Respiratory rate source Observation Blood Pressure (90/60-120/80) 105/58 L Blood Pressure Mean 73 Source Monitor Position Semi-Fowlers Blood Pressure Location Left Arm History Since Last Visit- (Skip if this is Patient's initial visit) Have you changed medications since your No last visit? Any new allergies or adverse reactions No Had a fall/change in ADL's that may No increase risk of falls Signs or symptoms of abuse and/or No neglect since last visit Have you been in the hospital since your No last visit? Has dressing in place as prescribed Yes Has compression in place as prescribed No Has offloadiing in place as prescribed No Experienced any changes in pain level or No management Pain Scale: 0-10 Numeric Is Patient Pain Free? Yes WC - Nurse 1 - General Ulcer Measurement Start: 11/04/22 09:18 Freq: Status: Active Protocol: Activity Type Activity Date Activity User E-sign Co-sign Detail Recorded Client Recorded Date Recorded By Document 11/04/22 09:18 RB [id number] 11/04/22 09:21 RB 11/04/22 09:18 Wound Center Nurse 1 L axilla -Combined with other wound No -Current Size (cm) - Length 0.4 -Current Size (cm) - Width 0.8 -Current Size (cm) - Depth 0.1 -Total Square Cm 0.32 -Photo Taken Yes -Tunneling No -Undermining/Tunneling No -Circular Undermining No -Exudate Amt Medium -Exudate Type Serosanguineous -Wound Margin Distinct, Outline Attached -Granulation Amt Medium (34-66%) -Granulation Quality [place] -Slough/Fibrin Yes -Necrosis Amt Medium (34-66%) -Necrotic Tissue Type Adherent Slough -Structure Exposed N/A -Texture (Sangeeta-wound Skin Appearance) Assessed, Scarring -Moisture (Sangeeta-wound Skin Appearance) Assessed -Color (Sangeeta-wound Skin Appearance) Assessed -Temperature (Sangeeta-wound Skin No Abnormality Appearance) (Pt Warm) -Tenderness on Palpation (Sangeeta-wound No Skin Appearance) -Ulcer Cleansing Wound Cleanser -Foul Odor after Cleansing No -Anesthetic Used 5% Lidocaine Gel WC - Nurse 2 - General Ulcer CM Notes Start: 11/04/22 09:18 Freq: Status: Active Protocol: Activity Type Activity Date Activity User E-sign Co-sign Detail Recorded Client Recorded Date Recorded By Document 11/04/22 09:28 MW [id number] 11/04/22 09:33 MW 11/04/22 09:28 Wound Center Nurse 2 -Time 09:28 -Correct Patient Yes -Correct Side, Site, Position Yes -Correct Procedure Yes -Procedure Performed Yes -Type of Procedure Debridement -Clinical Debridement Subcutaneous -Tissue Removed Subcutaneous -Post Debridement (cm) - Length 0.4 -Post Debridement (cm) - Width 1.2 -Post Debridement (cm) - Depth 0.6 -Total Square (Post) (cm) 0.48 -Area of Debridement (cm) - Length 0.4 -Area of Debridement (cm) - Width 1.2 -Total Square (Area) (cm) 0.48 -Tunneling No -Undermining/Tunneling No -Circular Undermining No -Wound/Ulcer Outcome Not Healed -Ulcer Cleansing Rinsed/ Irrigated with Saline -Foul Odor after Cleansing No -Bioengineered Tissue No -Bleeding Controlled with Pressure -Treatment Response Procedure Tolerated Well -Offloading No -Debridement - Subq, 1st 20sq cm Yes Pain Scale: 0-10 Numeric Is Patient Pain Free? Yes - Nurse 3 - General Ulcer D/C NN Start: 11/04/22 09:18 Freq: Status: Active Protocol: Activity Type Activity Date Activity User E-sign Co-sign Detail Recorded Client Recorded Date Recorded By Document 11/04/22 09:41 MW [id number] 11/04/22 09:44 MW 11/04/22 09:41 Wound Care Center Nurse 3 L axilla -Ulcer Cleansing Rinsed/ Irrigated with Saline -Foul Odor after Cleansing No -Negative Pressure Wound Therapy N/A -Primary Dressing Applied Fibracol Plus 4x4,Mepilex Border -Primary Dressing Covered/Secured with Dry Gauze -Fibracol Plus 4x4 2 -Mepilex Border 2 Treatment Response Procedure Tolerated Well Pain Scale: 0-10 Numeric Is Patient Pain Free? Yes Teaching: Wound Center Dressing Your Wound -Person Taught Patient -Teaching Method Demonstration -Response to teaching Verbalize understanding WC - Visit Discharge Discharge Condition Stable Ambulatory Status Ambulatory Transportation Private Auto Accompanied by Medication Reconcilliation completed & No provided to patient/care provider Clinical Summary of Care Provided Yes Assessment/Plan Assessment/Plan (1) Nonhealing surgical wound: CODE(S): T81.89XA - Other complications of procedures, not elsewhere classified, initial encounter QUALIFIERS: Encounter type: initial encounter Qualified Code(s): T81.89XA - Other complications of procedures, not elsewhere classified, initial encounter (2) Dehiscence of surgical wound: CODE(S): T81.31XA - Disruption of external operation (surgical) wound, not elsewhere classified, initial encounter QUALIFIERS: Encounter type: initial encounter Qualified Code(s): T81.31XA - Disruption of external operation (surgical) wound, not elsewhere classified, initial encounter PLAN: Wash the area with antibacterial soap such as Dial liquid or solid. 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
== END 2022-11-09 23:59 | disposition home or self-care (01) ==
LOC: WC 08:46
PROVIDERS: PCP Family Medicine; Referring Provider Family Medicine; Visit Provider Nurse Practitioner
DX: T81.31XA Disruption of external operation (surgical) wound, not elsewhere classified, initial encounter (principal); C49.6 Malignant neoplasm of connective and soft tissue of trunk, unspecified; J42 Unspecified chronic bronchitis; N18.30 Chronic kidney disease, stage 3 unspecified; I12.9 Hypertensive chronic kidney disease with stage 1 through stage 4 chronic kidney disease, or unspecified chronic kidney disease; T81.89XA Other complications of procedures, not elsewhere classified, initial encounter; Y83.8 Other surgical procedures as the cause of abnormal reaction of the patient, or of later complication, without mention of misadventure at the time of the procedure; I25.10 Atherosclerotic heart disease of native coronary artery without angina pectoris; M10.9 Gout, unspecified; E78.5 Hyperlipidemia, unspecified; E03.9 Hypothyroidism, unspecified; Z79.82 Long term (current) use of aspirin; Z79.890 Hormone replacement therapy; Z79.899 Other long term (current) drug therapy; Z87.891 Personal history of nicotine dependence; Z92.3 Personal history of irradiation
CPT/HCPCS: 11042; 99203; G0463

== ENCOUNTER 2022-12-09 08:15 | Outpatient (RCR) | payer MEDICARE, OTHER, SELFPAY ==
[2022-11-10 00:25] VITALS: BP 105/58; PULSE 80; RESP 18; TEMP 36.4; BMI 27.2
[2022-11-11 08:52] VITALS: BP 129/44; PULSE 62; RESP 16; TEMP 35.9; BMI 27.2
--- NOTE | 2022-11-11 09:31 | PCM.WC.PN ---
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 Patient was healing well until this 1 little area just refuses to close. Has been using bacitracin on it and that is all. Progress of Wound: The wound size has not changed. We are dealing with radiated tissue. We will try ordering a snap VAC to see if that would help with the depth. Depth is a little bit deeper but still in the subcutaneous tissue it has not broken through. Patient and did state little discharged on gauze. We will also get cultures this week and see if there is any bacteria growing. Subjective Subjective I think patient and his are just disappointed that the wounds not healing better but are trying to get their morale up by using a snap VAC to maybe get rid of some of the depth. Objective Data Objective Data As stated above wound is slightly bigger depth is not improving no sign of infection no no redness mild discharge odor. We will get cultures and order a snap VAC from insurance and see what we can do. We will continue with the Fibracol packing right now. Vital Signs: Vital Signs Temp Pulse Resp BP O2 Del Method 96.7 F L 62 16 129/44 H Room Air 11/11/22 08:52 11/11/22 08:52 11/11/22 08:52 11/11/22 08:52 11/11/22 08:52 Oxygen Delivery Method Room Air Weight: 169 lb Body Mass Index (BMI) 27.2 Physical Exam Const oriented x3 General Appearance: cooperative Exam Limitations: no limitations HEENT normocephalic Face and Sinus: normal facial exam Eyes General Eye: normal appearance of both eyes Neck full ROM General: normal visual inspection Resp normal respiratory effort Effort and Inspection: able to speak in complete sentences Auscultation: clear to auscultation bilaterally Cardio regular rate and regular rhythm Palpation: normal PMI Rate: regular rate Rhythm: regular rhythm Skin Wounds: wounds noted Wound Narrative: Open wound under the left axilla in the surgical line. Has positive depth Neuro oriented x3 Psych Appearance: grossly normal Speech: normal speech Thought Content: normal thought content Judgement: judgement good Debridement Note Debridement Note Wound debrided: Left axilla surgical wound dehisced Type of Debridement: Excisional debridement Anesthesia Used: 5% Lidocaine Gel Depth: in the subcutaneous layer Percentage of wound debrided: 100 Instrument Used: 3mm curette Tissue Removed: Fibrin Severity: Fat Layer Exposed Amount of bleeding with debridement: Mild Bleeding Controlled with: Compression and gauze Patient tolerated procedure: Patient tolerated procedure well Post-Debridement Measurements and Additional Note: Post-Debridement Measurements/Treatment - Nurse 1 - General Ulcer Assessment Start: 11/11/22 08:52 Freq: Status: Active Protocol: ONELIA Activity Type Activity Date Activity User E-sign Co-sign Detail Recorded Client Recorded Date Recorded By Document 11/11/22 08:52 [facility] [id number] 11/11/22 09:00 [facility] 11/11/22 08:52 MIHIR - Today's Visit Information Type of service Follow-up Visit (Physician/HOME SECURITY PROFESSIONAL ) Arrival Mode Ambulatory Transfer Assistance None Accompanied by Patient Identification Verified (Name & Yes ) Patient Requires Transmission-Based No Precautions Height and Weight Body Mass Index (BMI) 27.2 BMI Classification Overweight Vital Signs Temperature (97.8 F-99.1 F) 96.7 F L Temperature Source Temporal Pulse Rate (60-100) 62 Pulse Location Monitor Respiratory Rate (12-18) 16 Respiratory rate source Observation Oxygen Delivery Method Room Air Blood Pressure (90/60-120/80) 129/44 H Blood Pressure Mean (mm Hg) 72 Source Monitor Position Sitting Blood Pressure Location Left Arm History Since Last Visit- (Skip if this is Patient's initial visit) Have you changed medications since your No last visit? Any new allergies or adverse reactions No Had a fall/change in ADL's that may No increase risk of falls Signs or symptoms of abuse and/or No neglect since last visit Have you been in the hospital since your No last visit? Has dressing in place as prescribed Yes Has compression in place as prescribed N/A Has offloadiing in place as prescribed N/A Experienced any changes in pain level or No management Left Footwear Regular Shoe Right Footwear Regular Shoe Pain Scale: 0-10 Numeric Is Patient Pain Free? Yes MIHIR Ballard Nurse 1 - General Ulcer Measurement Start: 11/11/22 08:52 Freq: Status: Active Protocol: Activity Type Activity Date Activity User E-sign Co-sign Detail Recorded Client Recorded Date Recorded By Document 08/02/23 08:52 [facility] [id number] 11/11/22 09:00 [facility] 11/11/22 08:52 Wound Center Nurse 1 L axilla -Combined with other wound No -Current Size (cm) - Length 0.5 -Current Size (cm) - Width 0.9 -Current Size (cm) - Depth 0.5 -Total Square Cm 0.45 -Date of Last Picture (Recall this 11/11/22 field) -Photo Taken Yes -Epithelialization None Present -Tunneling No -Undermining/Tunneling No -Circular Undermining No -Exudate Amt Medium -Exudate Type Serosanguineous -Wound Margin Distinct, Outline Attached -Granulation Amt None Present (0 %) -Slough/Fibrin Yes -Necrosis Amt Large (67-100%) -Necrotic Tissue Type Adherent Slough -Texture (Sangeeta-wound Skin Appearance) Assessed, Scarring -Moisture ([place]ange[place]-wound Skin Appearance) Assessed -Color ([place]ange[place]-wound Skin Appearance) Assessed -Temperature (Sangeeta-wound Skin No Abnormality Appearance) (Pt Warm) -Tenderness on Palpation (Sangeeta-wound No Skin Appearance) -Ulcer Cleansing Rinsed/ Irrigated with Saline -Foul Odor after Cleansing No -Anesthetic Used 5% Lidocaine Gel WC - Nurse 2 - General Ulcer CM Notes Start: 11/11/22 08:52 Freq: Status: Active Protocol: Activity Type Activity Date Activity User E-sign Co-sign Detail Recorded Client Recorded Date Recorded By Document 11/11/22 09:03 [id number] 11/11/22 09:09 11/11/22 09:03 Wound Center Nurse 2 -Time 09:04 -Correct Patient Yes -Correct Side, Site, Position Yes -Correct Procedure Yes -Procedure Performed Yes -Type of Procedure Debridement -Clinical Debridement Subcutaneous -Tissue Removed Subcutaneous -Post Debridement (cm) - Length 0.3 -Post Debridement (cm) - Width 1.1 -Post Debridement (cm) - Depth 0.9 -Total Square (Post) (cm) 0.33 -Area of Debridement (cm) - Length 0.3 -Area of Debridement (cm) - Width 1.1 -Total Square (Area) (cm) 0.33 -Tunneling No -Undermining/Tunneling No -Circular Undermining No -Wound/Ulcer Outcome Not Healed -Ulcer Cleansing Rinsed/ Irrigated with Saline -Foul Odor after Cleansing No -Bioengineered Tissue No -Bleeding Controlled with Pressure -Treatment Response Procedure Tolerated Well -Offloading No -Debridement - Subq, 1st 20sq cm Yes Pain Scale: 0-10 Numeric Is Patient Pain Free? Yes - Nurse 3 - General Ulcer D/C NN Start: 11/11/22 08:52 Freq: Status: Active Protocol: Activity Type Activity Date Activity User E-sign Co-sign Detail Recorded Client Recorded Date Recorded By Document 11/11/22 09:20 [facility] [id number] 11/11/22 09:21 [facility] 11/11/22 09:20 Wound Care Center Nurse 3 L axilla -Ulcer Cleansing Rinsed/ Irrigated with Saline -Foul Odor after Cleansing No -Primary Dressing Applied Fibracol Plus 4x4,Mepilex Border -Fibracol Plus 4x4 1 -Mepilex Border 1 Treatment Response Procedure Tolerated Well Pain Scale: 0-10 Numeric Is Patient Pain Free? Yes - Visit Discharge Discharge Condition Stable Ambulatory Status Ambulatory Transportation Private Auto Accompanied by Assessment/Plan Assessment/Plan (1) Nonhealing surgical wound: CODE(S): T81.89XA - Other complications of procedures, not elsewhere classified, initial encounter QUALIFIERS: Encounter type: initial encounter Qualified Code(s): T81.89XA - Other complications of procedures, not elsewhere classified, initial encounter (2) Dehiscence of surgical wound: CODE(S): T81.31XA - Disruption of external operation (surgical) wound, not elsewhere classified, initial encounter QUALIFIERS: Encounter type: initial encounter Qualified Code(s): T81.31XA - Disruption of external operation (surgical) wound, not elsewhere classified, initial encounter PLAN: Wash the area with antibacterial soap such as Dial liquid or solid. 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
[2022-11-18 08:10] VITALS: BP 122/40; PULSE 71; TEMP 35.7; BMI 27.2
--- NOTE | 2022-11-18 09:31 | PN.PCM_ITS ---
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 Patient was healing well until this 1 little area just refuses to close. Has been using bacitracin on it and that is all. Progress of Wound: The wound size has not changed. We are dealing with radiated tissue. We will try ordering a snap VAC to see if that would help with the depth. Depth is a little bit deeper but still in the subcutaneous tissue it has not broken through. Patient and did state little discharged on gauze. We will also get cultures this week and see if there is any bacteria growing. Subjective Subjective Patient is taking his antibiotic she is into the 6-day. Reluctant to use the snap, they have never had anything like this before tried to explain to them that it is not can close on its own because of the radiation to the skin. Objective Data Objective Data Still open and has undermining same depth same measurements. Will try the snap VAC and see if that gets it closed from the inside out. Family is very reluctant for the snap VAC not sure why. thinks and the thinks that the antibiotic is going to cure everything. Vital Signs: Vital Signs Temp Pulse Resp BP O2 Del Method 96.2 F L 71 16 122/40 H Room Air 11/18/22 08:10 11/18/22 08:10 11/11/22 08:52 11/18/22 08:10 11/18/22 08:10 Oxygen Delivery Method Room Air Weight: 169 lb Body Mass Index (BMI) 27.2 Lab / Micro Data Attestation: I reviewed the patient's lab results. Micro: Microbiology 11/11/22 09:10 Wound - Axillary Gram Stain - Final 11/11/22 09:10 Wound - Axillary Wound Culture - Final Staphylococcus epidermidis Actinomyces species 11/11/22 09:10 Wound - Axillary Anaerobic Culture - Final No anaerobic bacteria isolated. Physical Exam Const oriented x3 General Appearance: cooperative Exam Limitations: no limitations HEENT normocephalic Face and Sinus: normal facial exam Eyes General Eye: normal appearance of both eyes Neck full ROM General: normal visual inspection Resp normal respiratory effort Effort and Inspection: able to speak in complete sentences Auscultation: clear to auscultation bilaterally Cardio regular rate and regular rhythm Palpation: normal PMI Rate: regular rate Rhythm: regular rhythm Skin Wounds: wounds noted Wound Narrative: Open wound under the left axilla in the surgical line. Has positive depth Neuro oriented x3 Psych Appearance: grossly normal Speech: normal speech Thought Content: normal thought content Judgement: judgement good Debridement Note Debridement Note Wound debrided: Dehisced left axilla area surgical site nonhealing Type of Debridement: Excisional debridement Anesthesia Used: 5% Lidocaine Gel Depth: Down to and including healthy tissue Percentage of wound debrided: 100 Instrument Used: 3mm curette Tissue Removed: Fibrin Severity: Fat Layer Exposed Amount of bleeding with debridement: None Bleeding Controlled with: Compression and gauze Patient tolerated procedure: Patient tolerated procedure well Post-Debridement Measurements and Additional Note: Post-Debridement Measurements/Treatment - Nurse 1 - General Ulcer Assessment Start: 11/11/22 08:52 Freq: Status: Active Protocol: ONELIA Activity Type Activity Date Activity User E-sign Co-sign Detail Recorded Client Recorded Date Recorded By Document 11/11/22 08:52 [facility] [id number] 11/11/22 09:00 [facility] Document 11/18/22 08:10 [facility] [id number] 11/18/22 08:17 [facility] 11/11/22 11/18/22 08:52 08:10 - Today's Visit Information Type of service Follow-up Visit Follow-up Visit (Physician/PREMIUM AUDITOR (Physician/PREMIUM AUDITOR ) ) Arrival Mode Ambulatory Ambulatory Transfer Assistance None None Accompanied by Patient Identification Verified (Name & Yes Yes ) Patient Requires Transmission-Based No No Precautions Height and Weight Body Mass Index (BMI) 27.2 27.2 BMI Classification Overweight Overweight Vital Signs Temperature (97.8 F-99.1 F) 96.7 F L 96.2 F L Temperature Source Temporal Temporal Pulse Rate (60-100) 62 71 Pulse Location Monitor Monitor Respiratory Rate (12-18) 16 Respiratory rate source Observation Observation Oxygen Delivery Method Room Air Room Air Blood Pressure (90/60-120/80) 129/44 H 122/40 H Blood Pressure Mean (mm Hg) 72 67 Source Monitor Monitor Position Sitting Sitting Blood Pressure Location Left Arm Left Arm History Since Last Visit- (Skip if this is Patient's initial visit) Have you changed medications since your No No last visit? Any new allergies or adverse reactions No No Had a fall/change in ADL's that may No No increase risk of falls Signs or symptoms of abuse and/or No No neglect since last visit Have you been in the hospital since your No No last visit? Has dressing in place as prescribed Yes Yes Has compression in place as prescribed N/A N/A Has offloadiing in place as prescribed N/A N/A Experienced any changes in pain level or No No management Left Footwear Regular Shoe Regular Shoe Right Footwear Regular Shoe Regular Shoe Pain Scale: 0-10 Numeric Is Patient Pain Free? Yes Yes WC - Nurse 1 - General Ulcer Measurement Start: 11/11/22 08:52 Freq: Status: Active Protocol: Activity Type Activity Date Activity User E-sign Co-sign Detail Recorded Client Recorded Date Recorded By Document 11/11/22 08:52 [facility] [id number] 11/11/22 09:00 [facility] Document 11/18/22 08:10 [facility] [id number] 11/18/22 08:17 [facility] 11/11/22 11/18/22 08:52 08:10 Wound Center Nurse 1 L axilla -Combined with other wound No No -Current Size (cm) - Length 0.5 0.4 -Current Size (cm) - Width 0.9 1.3 -Current Size (cm) - Depth 0.5 0.5 -Total Square Cm 0.45 0.52 -Date of Last Picture (Recall this 11/11/22 11/18/22 field) -Photo Taken Yes Yes -Epithelialization None Present None Present -Tunneling No No -Undermining/Tunneling No Yes -Undermining/Tunneling Starts (O'clock 10 ) -Undermining/Tunneling Ends (O'clock) 2 -Maximum Distance (cm) 0.5 -Circular Undermining No No -Exudate Amt Medium Medium -Exudate Type Serosanguineous Serosanguineous -Wound Margin Distinct, Distinct, Outline Outline Attached Attached -Granulation Amt None Present (0 Large (67-100%) %) -Granulation Quality Red -Slough/Fibrin Yes Yes -Necrosis Amt Large (67-100%) Small (1-33%) -Necrotic Tissue Type Adherent Slough Adherent Slough -Texture (Sangeeta-wound Skin Appearance) Assessed, Assessed, Scarring Scarring -Moisture (Sangeeta-wound Skin Appearance) Assessed Assessed -Color (Sangeeta-wound Skin Appearance) Assessed Assessed -Temperature (Sangeeta-wound Skin No Abnormality No Abnormality Appearance) (Pt Warm) (Pt Warm) -Tenderness on Palpation (Sangeeta-wound No No Skin Appearance) -Ulcer Cleansing Rinsed/ Rinsed/ Irrigated with Irrigated with Saline Saline -Foul Odor after Cleansing No No -Anesthetic Used 5% Lidocaine 5% Lidocaine Gel Gel WC - Nurse 2 - General Ulcer CM Notes Start: 11/11/22 08:52 Freq: Status: Active Protocol: Activity Type Activity Date Activity User E-sign Co-sign Detail Recorded Client Recorded Date Recorded By Document 11/11/22 09:03 MW [id number] 11/11/22 09:09 MW Document 11/18/22 08:42 MW [id number] 11/18/22 08:53 MW 11/11/22 11/18/22 09:03 08:42 Wound Center Nurse 2 L axilla -Time 09:04 08:42 -Correct Patient Yes Yes -Correct Side, Site, Position Yes Yes -Correct Procedure Yes Yes -Procedure Performed Yes Yes -Type of Procedure Debridement Debridement -Clinical Debridement Subcutaneous Subcutaneous -Tissue Removed Subcutaneous Subcutaneous -Post Debridement (cm) - Length 0.3 0.3 -Post Debridement (cm) - Width 1.1 1.3 -Post Debridement (cm) - Depth 0.9 0.6 -Total Square (Post) (cm) 0.33 0.39 -Area of Debridement (cm) - Length 0.3 0.3 -Area of Debridement (cm) - Width 1.1 1.3 -Total Square (Area) (cm) 0.33 0.39 -Tunneling No No -Undermining/Tunneling No No -Circular Undermining No No -Wound/Ulcer Outcome Not Healed Not Healed -Ulcer Cleansing Rinsed/ Rinsed/ Irrigated with Irrigated with Saline Saline -Foul Odor after Cleansing No No -Bioengineered Tissue No No -Bleeding Controlled with Pressure Pressure -Treatment Response Procedure Procedure Tolerated Well Tolerated Well -Offloading No No -Debridement - Subq, 1st 20sq cm Yes Yes Pain Scale: 0-10 Numeric Is Patient Pain Free? Yes Yes WC - Nurse 3 - General Ulcer D/C NN Start: 11/11/22 08:52 Freq: Status: Active Protocol: Activity Type Activity Date Activity User E-sign Co-sign Detail Recorded Client Recorded Date Recorded By Document 11/11/22 09:20 [facility] [id number] 11/11/22 09:21 [facility] Document 11/18/22 09:05 [facility] [id number] 11/18/22 09:06 [facility] 11/11/22 11/18/22 09:20 09:05 Wound Care Center Nurse 3 L axilla -Ulcer Cleansing Rinsed/ Rinsed/ Irrigated with Irrigated with Saline Saline -Foul Odor after Cleansing No No -Negative Pressure Wound Therapy Start -Setting (mmHg) 125 -Negative Pressure is Continuous -Primary Dressing Applied Fibracol Plus 4x4,Mepilex Border -Other Dressing snap applied per dl web content executive -NPWT Application Charge NPWT & Debridement (nc ) -Fibracol Plus 4x4 1 -Mepilex Border 1 Treatment Response Procedure Procedure Tolerated Well Tolerated Well Pain Scale: 0-10 Numeric Is Patient Pain Free? Yes Yes WC - Visit Discharge Discharge Condition Stable Stable Ambulatory Status Ambulatory Ambulatory Transportation Private Auto Private Auto Accompanied by Assessment/Plan Assessment/Plan (1) Nonhealing surgical wound: CODE(S): T81.89XA - Other complications of procedures, not elsewhere classified, initial encounter QUALIFIERS: Encounter type: initial encounter Qualified Code(s): T81.89XA - Other complications of procedures, not elsewhere classified, initial encounter (2) Dehiscence of surgical wound: CODE(S): T81.31XA - Disruption of external operation (surgical) wound, not elsewhere classified, initial encounter QUALIFIERS: Encounter type: initial encounter Qualified Code(s): T81.31XA - Disruption of external operation (surgical) wound, not elsewhere classified, initial encounter PLAN: Apply the snap VAC to the axilla area and follow-up in 1 week No bathing sponge baths. Call if it loses his VAC you can always go back to packing with Fibracol. 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
[2022-11-25 08:22] VITALS: BP 142/43; PULSE 55; RESP 18; TEMP 35.5; BMI 27.2
--- NOTE | 2022-11-25 11:39 | PN.PCM_ITS ---
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 Patient was healing well until this 1 little area just refuses to close. Has been using bacitracin on it and that is all. Progress of Wound: The wound depth has improved in 1 week using the snap VAC. Patient is still reluctant to use it for 1 more week. Did agree to it. Little bit of bloody discharge was noted in the canister. Finished his antibiotic. Measurements and circumference are still about the same if not a little bit larger but that is okay. Subjective Subjective Reluctantly will take the snap VAC 1 more week and would like to go back to packing Objective Data Objective Data Did not have any issues for the week with the snap VAC lifted on got good suction did come in 0.3 in depth. Vital Signs: Vital Signs Temp Pulse Resp BP O2 Del Method 96 F L 55 L 18 142/43 H Room Air 11/25/22 08:22 11/25/22 08:22 11/25/22 08:22 11/25/22 08:22 11/18/22 08:10 Oxygen Delivery Method Room Air Weight: 169 lb Body Mass Index (BMI) 27.2 Lab / Micro Data Attestation: I reviewed the patient's lab results. Micro: Microbiology 11/11/22 09:10 Wound - Axillary Gram Stain - Final 11/11/22 09:10 Wound - Axillary Wound Culture - Final Staphylococcus epidermidis Actinomyces species 11/11/22 09:10 Wound - Axillary Anaerobic Culture - Final No anaerobic bacteria isolated. Physical Exam Const oriented x3 General Appearance: cooperative Exam Limitations: no limitations HEENT normocephalic Face and Sinus: normal facial exam Eyes General Eye: normal appearance of both eyes Neck full ROM General: normal visual inspection Resp normal respiratory effort Effort and Inspection: able to speak in complete sentences Auscultation: clear to auscultation bilaterally Cardio regular rate and regular rhythm Palpation: normal PMI Rate: regular rate Rhythm: regular rhythm Skin Wounds: wounds noted Wound Narrative: Open wound under the left axilla in the surgical line. Has positive depth Neuro oriented x3 Psych Appearance: grossly normal Speech: normal speech Thought Content: normal thought content Judgement: judgement good Debridement Note Debridement Note Wound debrided: Left axilla dehisced wound from radiation treatments Type of Debridement: Excisional debridement Anesthesia Used: 5% Lidocaine Gel Depth: in the subcutaneous layer Percentage of wound debrided: 100 Instrument Used: 5mm curette Tissue Removed: Fibrin Severity: Fat Layer Exposed Amount of bleeding with debridement: Mild Bleeding Controlled with: Compression and gauze Patient tolerated procedure: Patient tolerated procedure well Post-Debridement Measurements and Additional Note: Post-Debridement Measurements/Treatment - Nurse 1 - General Ulcer Assessment Start: 11/11/22 08:52 Freq: Status: Active Protocol: ONELIA Activity Type Activity Date Activity User E-sign Co-sign Detail Recorded Client Recorded Date Recorded By Document 11/11/22 08:52 [facility] [id number] 11/11/22 09:00 [facility] Document 11/18/22 08:10 [facility] [id number] 11/18/22 08:17 [facility] Document 11/25/22 08:22 [id number] 11/25/22 08:24 RB 11/11/22 11/18/22 11/25/22 08:52 08:10 08:22 - Today's Visit Information Type of service Follow-up Visit Follow-up Visit Follow-up Visit (Physician/SUSPECT ARTIST (Physician/SUSPECT ARTIST (Physician/SUSPECT ARTIST ) ) ) Arrival Mode Ambulatory Ambulatory Ambulatory Transfer Assistance None None None Accompanied by Patient Identification Verified (Name & Yes Yes Yes ) Patient Requires Transmission-Based No No No Precautions Height and Weight Body Mass Index (BMI) 27.2 27.2 27.2 BMI Classification Overweight Overweight Overweight Vital Signs Temperature (97.8 F-99.1 F) 96.7 F L 96.2 F L 96 F L Temperature Source Temporal Temporal Temporal Pulse Rate (60-100) 62 71 55 L Pulse Location Monitor Monitor Monitor Respiratory Rate (12-18) 16 18 Respiratory rate source Observation Observation Observation Oxygen Delivery Method Room Air Room Air Blood Pressure (90/60-120/80) 129/44 H 122/40 H 142/43 H Blood Pressure Mean (mm Hg) 72 67 76 Source Monitor Monitor Monitor Position Sitting Sitting Semi-Fowlers Blood Pressure Location Left Arm Left Arm Left Arm History Since Last Visit- (Skip if this is Patient's initial visit) Have you changed medications since your No No No last visit? Any new allergies or adverse reactions No No No Had a fall/change in ADL's that may No No No increase risk of falls Signs or symptoms of abuse and/or No No No neglect since last visit Have you been in the hospital since your No No No last visit? Has dressing in place as prescribed Yes Yes Yes Has compression in place as prescribed N/A N/A No Has offloadiing in place as prescribed N/A N/A No Experienced any changes in pain level or No No No management Left Footwear Regular Shoe Regular Shoe Right Footwear Regular Shoe Regular Shoe Pain Scale: 0-10 Numeric Is Patient Pain Free? Yes Yes Yes WC - Nurse 1 - General Ulcer Measurement Start: 11/11/22 08:52 Freq: Status: Active Protocol: Activity Type Activity Date Activity User E-sign Co-sign Detail Recorded Client Recorded Date Recorded By Document 11/11/22 08:52 [facility] [id number] 11/11/22 09:00 [facility] Document 11/18/22 08:10 [facility] [id number] 11/18/22 08:17 BM Document 11/25/22 08:22 [id number] 11/25/22 08:24 RB 11/11/22 11/18/22 11/25/22 08:52 08:10 08:22 Wound Center Nurse 1 L axilla -Combined with other wound No No No -Current Size (cm) - Length 0.5 0.4 0.5 -Current Size (cm) - Width 0.9 1.3 0.9 -Current Size (cm) - Depth 0.5 0.5 0.4 -Total Square Cm 0.45 0.52 0.45 -Date of Last Picture (Recall this 11/11/22 11/18/22 field) -Photo Taken Yes Yes -Epithelialization None Present None Present -Tunneling No No No -Undermining/Tunneling No Yes No -Undermining/Tunneling Starts (O'clock 10 ) -Undermining/Tunneling Ends (O'clock) 2 -Maximum Distance (cm) 0.5 -Circular Undermining No No No -Exudate Amt Medium Medium Medium -Exudate Type Serosanguineous Serosanguineous Serosanguineous -Wound Margin Distinct, Distinct, Thickened & Outline Outline Rolled Under Attached Attached -Granulation Amt None Present (0 Large (67-100%) Medium (34-66%) %) -Granulation Quality Red [place] -Slough/Fibrin Yes Yes Yes -Necrosis Amt Large (67-100%) Small (1-33%) Medium (34-66%) -Necrotic Tissue Type Adherent Slough Adherent Slough Adherent Slough -Structure Exposed N/A -Texture (Sangeeta-wound Skin Appearance) Assessed, Assessed, Assessed, Scarring Scarring Scarring -Moisture (Sangeeta-wound Skin Appearance) Assessed Assessed Assessed -Color (Sangeeta-wound Skin Appearance) Assessed Assessed Assessed -Temperature (Sangeeta-wound Skin No Abnormality No Abnormality No Abnormality Appearance) (Pt Warm) (Pt Warm) (Pt Warm) -Tenderness on Palpation (Sangeeta-wound No No No Skin Appearance) -Ulcer Cleansing Rinsed/ Rinsed/ Wound Cleanser Irrigated with Irrigated with Saline Saline -Foul Odor after Cleansing No No No -Anesthetic Used 5% Lidocaine 5% Lidocaine 5% Lidocaine Gel Gel Gel WC - Nurse 2 - General Ulcer CM Notes Start: 11/11/22 08:52 Freq: Status: Active Protocol: Activity Type Activity Date Activity User E-sign Co-sign Detail Recorded Client Recorded Date Recorded By Document 11/11/22 09:03 MW [id number] 11/11/22 09:09 MW Document 11/18/22 08:42 MW [id number] 11/18/22 08:53 MW Edit Result 11/18/22 08:42 MW (1) [id number] 11/19/22 07:55 PL Document 11/25/22 08:30 MW [id number] 11/25/22 08:37 MW (1) L axilla - Debridement - Subq, 1st 20sq cm Yes => No 11/11/22 11/18/22 11/25/22 09:03 08:42 08:30 Wound Center Nurse 2 L axilla -Time 09:04 08:42 08:30 -Correct Patient Yes Yes Yes -Correct Side, Site, Position Yes Yes Yes -Correct Procedure Yes Yes Yes -Procedure Performed Yes Yes Yes -Type of Procedure Debridement Debridement Debridement -Clinical Debridement Subcutaneous Subcutaneous Subcutaneous -Tissue Removed Subcutaneous Subcutaneous Subcutaneous -Post Debridement (cm) - Length 0.3 0.3 0.5 -Post Debridement (cm) - Width 1.1 1.3 1.2 -Post Debridement (cm) - Depth 0.9 0.6 0.3 -Total Square (Post) (cm) 0.33 0.39 0.60 -Area of Debridement (cm) - Length 0.3 0.3 0.5 -Area of Debridement (cm) - Width 1.1 1.3 1.2 -Total Square (Area) (cm) 0.33 0.39 0.60 -Tunneling No No No -Undermining/Tunneling No No No -Circular Undermining No No No -Wound/Ulcer Outcome Not Healed Not Healed Not Healed -Ulcer Cleansing Rinsed/ Rinsed/ Rinsed/ Irrigated with Irrigated with Irrigated with Saline Saline Saline -Foul Odor after Cleansing No No No -Bioengineered Tissue No No No -Bleeding Controlled with Pressure Pressure Pressure -Treatment Response Procedure Procedure Procedure Tolerated Well Tolerated Well Tolerated Well -Offloading No No No -Debridement - Subq, 1st 20sq cm Yes No Yes Pain Scale: 0-10 Numeric Is Patient Pain Free? Yes Yes Yes WC - Nurse 3 - General Ulcer D/C NN Start: 11/11/22 08:52 Freq: Status: Active Protocol: Activity Type Activity Date Activity User E-sign Co-sign Detail Recorded Client Recorded Date Recorded By Document 11/11/22 09:20 BM [id number] 11/11/22 09:21 BM[facility] Document 11/18/22 09:05 BM [id number] 11/18/22 09:06 BMF Edit Result 11/18/22 09:05 BMF (1) [id number] 11/19/22 07:56 PL Document 11/25/22 08:48 RB [id number] 11/25/22 08:49 RB (1) L axilla - NPWT Application Charge NPWT & Debridement => NPWT </= 50 sq cm (nc) => (disp) ($) 11/11/22 11/18/22 11/25/22 09:20 09:05 08:48 Wound Care Center Nurse 3 L axilla -Ulcer Cleansing Rinsed/ Rinsed/ Rinsed/ Irrigated with Irrigated with Irrigated with Saline Saline Saline -Foul Odor after Cleansing No No -Negative Pressure Wound Therapy Start Continue -Setting (mmHg) 125 125 -Negative Pressure is Continuous Continuous -Primary Dressing Applied Fibracol Plus 4x4,Mepilex Border -Other Dressing snap applied per dl student recruiter -NPWT Application Charge NPWT </= 50 sq NPWT & cm (disp) ($) Debridement (nc ) -Fibracol Plus 4x4 1 -Mepilex Border 1 Treatment Response Procedure Procedure Procedure Tolerated Well Tolerated Well Tolerated Well Pain Scale: 0-10 Numeric Is Patient Pain Free? Yes Yes Yes WC - Visit Discharge Discharge Condition Stable Stable Stable Ambulatory Status Ambulatory Ambulatory Ambulatory Transportation Private Auto Private Auto Private Auto Accompanied by Medication Reconcilliation completed & No provided to patient/care provider Clinical Summary of Care Provided Yes Assessment/Plan Assessment/Plan (1) Nonhealing surgical wound: CODE(S): T81.89XA - Other complications of procedures, not elsewhere classified, initial encounter QUALIFIERS: Encounter type: initial encounter Qualified Code(s): T81.89XA - Other complications of procedures, not elsewhere classified, initial encounter (2) Dehiscence of surgical wound: CODE(S): T81.31XA - Disruption of external operation (surgical) wound, not elsewhere classified, initial encounter QUALIFIERS: Encounter type: initial encounter Qualified Code(s): T81.31XA - Disruption of external operation (surgical) wound, not elsewhere classified, initial encounter PLAN: Apply the snap VAC to the axilla area and follow-up in 1 week No bathing sponge baths. Call if it loses his VAC you can always go back to packing with Fibracol. 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
[2022-12-02 08:22] VITALS: BP 131/46; PULSE 64; RESP 18; TEMP 35.7; BMI 27.2
--- NOTE | 2022-12-02 10:34 | PN.PCM_ITS ---
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 Patient was healing well until this 1 little area just refuses to close. Has been using bacitracin on it and that is all. Progress of Wound: The wound depth has improved somewhat in 2 weeks using the snap VAC. Patient does not want to go back to the snap VAC so we will start packing with the Bactroban and Fibracol. Little bit of bloody discharge was noted in the canister. Finished his antibiotic. Measurements and circumference are still about the same . Patient has a appointment with the cancer doctor on December 16. Subjective Subjective They are happy to be packing again but they are hard to appease. They thought the measurements would be better. Again we discussed other options we might have to have the surgeon reopen that area and scuff it up to re-heal because the skin is scar tissue from radiation. Objective Data Objective Data So measurements were slightly improved depth is a little bit better still debrides easily bloody we will try the Fibracol and Bactroban packing that is what they prefer anyways. Cultures came back rare Vital Signs: Vital Signs Temp Pulse Resp BP O2 Del Method 96.2 F L 64 18 131/46 H Room Air 12/02/22 08:22 12/02/22 08:22 12/02/22 08:22 12/02/22 08:22 11/18/22 08:10 Oxygen Delivery Method Room Air Weight: 169 lb Body Mass Index (BMI) 27.2 Lab / Micro Data Attestation: I reviewed the patient's lab results. Micro: Microbiology 11/11/22 09:10 Wound - Axillary Gram Stain - Final 11/11/22 09:10 Wound - Axillary Wound Culture - Final Staphylococcus epidermidis Actinomyces species 11/11/22 09:10 Wound - Axillary Anaerobic Culture - Final No anaerobic bacteria isolated. Physical Exam Const oriented x3 General Appearance: cooperative Exam Limitations: no limitations HEENT normocephalic Face and Sinus: normal facial exam Eyes General Eye: normal appearance of both eyes Neck full ROM General: normal visual inspection Resp normal respiratory effort Effort and Inspection: able to speak in complete sentences Auscultation: clear to auscultation bilaterally Cardio regular rate and regular rhythm Palpation: normal PMI Rate: regular rate Rhythm: regular rhythm Skin Wounds: wounds noted Wound Narrative: Open wound under the left axilla in the surgical line. Has positive depth Neuro oriented x3 Psych Appearance: grossly normal Speech: normal speech Thought Content: normal thought content Judgement: judgement good Debridement Note Debridement Note Wound debrided: Left chest axilla area surgical nonhealing Type of Debridement: Excisional debridement Anesthesia Used: 5% Lidocaine Gel Depth: in the subcutaneous layer Percentage of wound debrided: 100 Instrument Used: 3mm curette Tissue Removed: Fibrin Severity: Fat Layer Exposed Amount of bleeding with debridement: Mild Bleeding Controlled with: Compression and gauze Patient tolerated procedure: Patient tolerated procedure well Post-Debridement Measurements and Additional Note: Post-Debridement Measurements/Treatment - Nurse 1 - General Ulcer Assessment Start: 11/11/22 08:52 Freq: Status: Active Protocol: ONELIA Activity Type Activity Date Activity User E-sign Co-sign Detail Recorded Client Recorded Date Recorded By Document 11/11/22 08:52 [facility] [id number] 11/11/22 09:00 [facility] Document 11/18/22 08:10 [facility] [id number] 11/18/22 08:17 [facility] Document 11/25/22 08:22 [id number] 11/25/22 08:24 Document 12/02/22 08:22 RB Desktop 12/02/22 08:24 RB 11/11/22 11/18/22 11/25/22 08:52 08:10 08:22 - Today's Visit Information Type of service Follow-up Visit Follow-up Visit Follow-up Visit (Physician/BLENDING PLANT OPERATOR (Physician/BLENDING PLANT OPERATOR (Physician/BLENDING PLANT OPERATOR ) ) ) Arrival Mode Ambulatory Ambulatory Ambulatory Transfer Assistance None None None Accompanied by Patient Identification Verified (Name & Yes Yes Yes ) Patient Requires Transmission-Based No No No Precautions Height and Weight Body Mass Index (BMI) 27.2 27.2 27.2 BMI Classification Overweight Overweight Overweight Vital Signs Temperature (97.8 F-99.1 F) 96.7 F L 96.2 F L 96 F L Temperature Source Temporal Temporal Temporal Pulse Rate (60-100) 62 71 55 L Pulse Location Monitor Monitor Monitor Respiratory Rate (12-18) 16 18 Respiratory rate source Observation Observation Observation Oxygen Delivery Method Room Air Room Air Blood Pressure (90/60-120/80) 129/44 H 122/40 H 142/43 H Blood Pressure Mean (mm Hg) 72 67 76 Source Monitor Monitor Monitor Position Sitting Sitting Semi-Fowlers Blood Pressure Location Left Arm Left Arm Left Arm History Since Last Visit- (Skip if this is Patient's initial visit) Have you changed medications since your No No No last visit? Any new allergies or adverse reactions No No No Had a fall/change in ADL's that may No No No increase risk of falls Signs or symptoms of abuse and/or No No No neglect since last visit Have you been in the hospital since your No No No last visit? Has dressing in place as prescribed Yes Yes Yes Has compression in place as prescribed N/A N/A No Has offloadiing in place as prescribed N/A N/A No Experienced any changes in pain level or No No No management Left Footwear Regular Shoe Regular Shoe Right Footwear Regular Shoe Regular Shoe Pain Scale: 0-10 Numeric Is Patient Pain Free? Yes Yes Yes 12/02/22 08:22 WC - Today's Visit Information Type of service Follow-up Visit (Physician/BLENDING PLANT OPERATOR ) Arrival Mode Ambulatory Transfer Assistance None Accompanied by Patient Identification Verified (Name & Yes ) Patient Requires Transmission-Based No Precautions Height and Weight Body Mass Index (BMI) 27.2 BMI Classification Overweight Vital Signs Temperature (97.8 F-99.1 F) 96.2 F L Temperature Source Temporal Pulse Rate (60-100) 64 Pulse Location Monitor Respiratory Rate (12-18) 18 Respiratory rate source Observation Oxygen Delivery Method Blood Pressure (90/60-120/80) 131/46 H Blood Pressure Mean (mm Hg) 74 Source Monitor Position Semi-Fowlers Blood Pressure Location Left Arm History Since Last Visit- (Skip if this is Patient's initial visit) Have you changed medications since your No last visit? Any new allergies or adverse reactions No Had a fall/change in ADL's that may No increase risk of falls Signs or symptoms of abuse and/or No neglect since last visit Have you been in the hospital since your No last visit? Has dressing in place as prescribed Yes Has compression in place as prescribed No Has offloadiing in place as prescribed No Experienced any changes in pain level or No management Left Footwear Right Footwear Pain Scale: 0-10 Numeric Is Patient Pain Free? Yes WC - Nurse 1 - General Ulcer Measurement Start: 11/11/22 08:52 Freq: Status: Active Protocol: Activity Type Activity Date Activity User E-sign Co-sign Detail Recorded Client Recorded Date Recorded By Document 11/11/22 08:52 [facility] [id number] 11/11/22 09:00 [facility] Document 11/18/22 08:10 BMF [id number] 11/18/22 08:17 BMF Document 11/25/22 08:22 RB [id number] 11/25/22 08:24 RB Document 12/02/22 08:22 RB Desktop 12/02/22 08:24 RB 11/11/22 11/18/22 11/25/22 08:52 08:10 08:22 Wound Center Nurse 1 L axilla -Combined with other wound No No No -Current Size (cm) - Length 0.5 0.4 0.5 -Current Size (cm) - Width 0.9 1.3 0.9 -Current Size (cm) - Depth 0.5 0.5 0.4 -Total Square Cm 0.45 0.52 0.45 -Date of Last Picture (Recall this 11/11/22 11/18/22 field) -Photo Taken Yes Yes -Epithelialization None Present None Present -Tunneling No No No -Undermining/Tunneling No Yes No -Undermining/Tunneling Starts (O'clock 10 ) -Undermining/Tunneling Ends (O'clock) 2 -Maximum Distance (cm) 0.5 -Circular Undermining No No No -Exudate Amt Medium Medium Medium -Exudate Type Serosanguineous Serosanguineous Serosanguineous -Wound Margin Distinct, Distinct, Thickened & Outline Outline Rolled Under Attached Attached -Granulation Amt None Present (0 Large (67-100%) Medium (34-66%) %) -Granulation Quality [place] -Slough/Fibrin Yes Yes Yes -Necrosis Amt Large (67-100%) Small (1-33%) Medium (34-66%) -Necrotic Tissue Type Adherent Slough Adherent Slough Adherent Slough -Structure Exposed N/A -Texture (Sangeeta-wound Skin Appearance) Assessed, Assessed, Assessed, Scarring Scarring Scarring -Moisture ([place]-wound Skin Appearance) Assessed Assessed Assessed -Color ([place]-wound Skin Appearance) Assessed Assessed Assessed -Temperature ([place]-wound Skin No Abnormality No Abnormality No Abnormality Appearance) (Pt Warm) (Pt Warm) (Pt Warm) -Tenderness on Palpation ([place]ange[place]-wound No No No Skin Appearance) -Ulcer Cleansing Rinsed/ Rinsed/ Wound Cleanser Irrigated with Irrigated with Saline Saline -Foul Odor after Cleansing No No No -Anesthetic Used 5% Lidocaine 5% Lidocaine 5% Lidocaine Gel Gel Gel 12/02/22 08:22 Wound Center Nurse 1 L axilla -Combined with other wound No -Current Size (cm) - Length 0.5 -Current Size (cm) - Width 1.4 -Current Size (cm) - Depth 0.5 -Total Square Cm 0.70 -Date of Last Picture (Recall this field) -Photo Taken -Epithelialization -Tunneling No -Undermining/Tunneling No -Undermining/Tunneling Starts (O'clock ) -Undermining/Tunneling Ends (O'clock) -Maximum Distance (cm) -Circular Undermining No -Exudate Amt Medium -Exudate Type Serosanguineous -Wound Margin Thickened & Rolled Under -Granulation Amt Medium (34-66%) -Granulation Quality [place] -Slough/Fibrin Yes -Necrosis Amt Medium (34-66%) -Necrotic Tissue Type Adherent Slough -Structure Exposed N/A -Texture ([place]angeeta-wound Skin Appearance) Assessed, Scarring -Moisture ([place]-wound Skin Appearance) Assessed -Color ([place]-wound Skin Appearance) Assessed -Temperature ([place]-wound Skin No Abnormality Appearance) (Pt Warm) -Tenderness on Palpation ([place]-wound No Skin Appearance) -Ulcer Cleansing Wound Cleanser -Foul Odor after Cleansing No -Anesthetic Used 5% Lidocaine Gel WC - Nurse 2 - General Ulcer CM Notes Start: 11/11/22 08:52 Freq: Status: Active Protocol: Activity Type Activity Date Activity User E-sign Co-sign Detail Recorded Client Recorded Date Recorded By Document 11/11/22 09:03 MW [id number] 11/11/22 09:09 MW Document 11/18/22 08:42 MW [id number] 11/18/22 08:53 MW Edit Result 11/18/22 08:42 MW (1) [id number] 11/19/22 07:55 PL Document 11/25/22 08:30 MW [id number] 11/25/22 08:37 MW Document 12/02/22 08:30 MW [id number] 12/02/22 08:34 MW (1) L axilla - Debridement - Subq, 1st 20sq cm Yes => No 11/11/22 11/18/22 11/25/22 09:03 08:42 08:30 Wound Center Nurse 2 L axilla -Time 09:04 08:42 08:30 -Correct Patient Yes Yes Yes -Correct Side, Site, Position Yes Yes Yes -Correct Procedure Yes Yes Yes -Procedure Performed Yes Yes Yes -Type of Procedure Debridement Debridement Debridement -Clinical Debridement Subcutaneous Subcutaneous Subcutaneous -Tissue Removed Subcutaneous Subcutaneous Subcutaneous -Post Debridement (cm) - Length 0.3 0.3 0.5 -Post Debridement (cm) - Width 1.1 1.3 1.2 -Post Debridement (cm) - Depth 0.9 0.6 0.3 -Total Square (Post) (cm) 0.33 0.39 0.60 -Area of Debridement (cm) - Length 0.3 0.3 0.5 -Area of Debridement (cm) - Width 1.1 1.3 1.2 -Total Square (Area) (cm) 0.33 0.39 0.60 -Tunneling No No No -Undermining/Tunneling No No No -Circular Undermining No No No -Wound/Ulcer Outcome Not Healed Not Healed Not Healed -Ulcer Cleansing Rinsed/ Rinsed/ Rinsed/ Irrigated with Irrigated with Irrigated with Saline Saline Saline -Foul Odor after Cleansing No No No -Bioengineered Tissue No No No -Bleeding Controlled with Pressure Pressure Pressure -Treatment Response Procedure Procedure Procedure Tolerated Well Tolerated Well Tolerated Well -Offloading No No No -Debridement - Subq, 1st 20sq cm Yes No Yes Pain Scale: 0-10 Numeric Is Patient Pain Free? Yes Yes Yes 12/02/22 08:30 Wound Center Nurse 2 L axilla -Time 08:31 -Correct Patient Yes -Correct Side, Site, Position Yes -Correct Procedure Yes -Procedure Performed Yes -Type of Procedure Debridement -Clinical Debridement Subcutaneous -Tissue Removed Dermis -Post Debridement (cm) - Length 0.5 -Post Debridement (cm) - Width 1.0 -Post Debridement (cm) - Depth 0.3 -Total Square (Post) (cm) 0.50 -Area of Debridement (cm) - Length 0.5 -Area of Debridement (cm) - Width 1.0 -Total Square (Area) (cm) 0.50 -Tunneling No -Undermining/Tunneling No -Circular Undermining No -Wound/Ulcer Outcome Not Healed -Ulcer Cleansing Rinsed/ Irrigated with Saline -Foul Odor after Cleansing No -Bioengineered Tissue No -Bleeding Controlled with Pressure -Treatment Response Procedure Tolerated Well -Offloading No -Debridement - Subq, 1st 20sq cm Yes Pain Scale: 0-10 Numeric Is Patient Pain Free? Yes WC - Nurse 3 - General Ulcer D/C NN Start: 11/11/22 08:52 Freq: Status: Active Protocol: Activity Type Activity Date Activity User E-sign Co-sign Detail Recorded Client Recorded Date Recorded By Document 11/11/22 09:20 BMF [id number] 11/11/22 09:21 BMF Document 11/18/22 09:05 BMF [id number] 11/18/22 09:06 BMF Edit Result 11/18/22 09:05 BMF (1) [id number] 11/19/22 07:56 PL Document 11/25/22 08:48 RB [id number] 11/25/22 08:49 RB Document 12/02/22 08:34 MW [id number] 12/02/22 08:35 MW (1) L axilla - NPWT Application Charge NPWT & Debridement => NPWT </= 50 sq cm (nc) => (disp) ($) 11/11/22 11/18/22 11/25/22 09:20 09:05 08:48 Wound Care Center Nurse 3 L axilla -Ulcer Cleansing Rinsed/ Rinsed/ Rinsed/ Irrigated with Irrigated with Irrigated with Saline Saline Saline -Foul Odor after Cleansing No No -Negative Pressure Wound Therapy Start Continue -Setting (mmHg) 125 125 -Negative Pressure is Continuous Continuous -Primary Dressing Applied Fibracol Plus 4x4,Mepilex Border -Other Dressing snap applied per dl cartridge belt puncher -NPWT Application Charge NPWT </= 50 sq NPWT & cm (disp) ($) Debridement (nc ) -Fibracol Plus 4x4 1 -Mepilex Border 1 Treatment Response Procedure Procedure Procedure Tolerated Well Tolerated Well Tolerated Well Pain Scale: 0-10 Numeric Is Patient Pain Free? Yes Yes Yes Teaching: Wound Center Dressing Your Wound -Person Taught -Teaching Method -Response to teaching WC - Visit Discharge Discharge Condition Stable Stable Stable Ambulatory Status Ambulatory Ambulatory Ambulatory Transportation Private Auto Private Auto Private Auto Accompanied by Medication Reconcilliation completed & No provided to patient/care provider Clinical Summary of Care Provided Yes 12/02/22 08:34 Wound Care Center Nurse 3 L axilla -Ulcer Cleansing Rinsed/ Irrigated with Saline -Foul Odor after Cleansing No -Negative Pressure Wound Therapy N/A -Setting (mmHg) -Negative Pressure is -Primary Dressing Applied Fibracol Plus 4x4,Mepilex Border -Other Dressing -NPWT Application Charge -Fibracol Plus 4x4 1 -Mepilex Border 1 Treatment Response Procedure Tolerated Well Pain Scale: 0-10 Numeric Is Patient Pain Free? Yes Teaching: Wound Center Dressing Your Wound -Person Taught Patient,Family -Teaching Method Discussion, Demonstration -Response to teaching Verbalize understanding WC - Visit Discharge Discharge Condition Stable Ambulatory Status Ambulatory Transportation Private Auto Accompanied by Medication Reconcilliation completed & No provided to patient/care provider Clinical Summary of Care Provided Yes Assessment/Plan Assessment/Plan (1) Nonhealing surgical wound: CODE(S): T81.89XA - Other complications of procedures, not elsewhere classified, initial encounter QUALIFIERS: Encounter type: initial encounter Qualified Code(s): T81.89XA - Other complications of procedures, not elsewhere classified, initial encounter (2) Dehiscence of surgical wound: CODE(S): T81.31XA - Disruption of external operation (surgical) wound, not elsewhere classified, initial encounter QUALIFIERS: Encounter type: initial encounter Qualified Code(s): T81.31XA - Disruption of external operation (surgical) wound, not elsewhere classified, initial encounter PLAN: Wash area with antibacterial soap apply Bactroban to base of wound nickel thickness and then apply Fibracol and side moistened with Adaptic and foam dressing every day Follow-up in 1 week Keep appointment with surgeon for the cancer doctor visit in December (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
[2022-12-09 08:11] VITALS: BP 131/43; PULSE 59; RESP 16; TEMP 35.5; BMI 27.2
--- NOTE | 2022-12-09 08:29 | PN.PCM_ITS ---
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 Patient was healing well until this 1 little area just refuses to close. Has been using bacitracin on it and that is all. Progress of Wound: The wound depth has improved somewhat in 2 weeks using the snap VAC. Patient does not want to go back to the snap VAC so we will start packing with the Fibracol. Little bit of bloody discharge was noted in the canister. Finished his antibiotic. Measurements and circumference are still about the same . Patient has a appointment with the cancer doctor on December 16. Subjective Subjective and are perplexed because we only used the snap VAC for 2 weeks and they thought they should be on it longer. I was under the impression they did not want the snap VAC and refused to use it again but unbeknownst to me they said they did not say that they would never use it. Now they are packing with the recall and they are not happy and that is what lizy kothari wanted doing originally. Seeing the surgeon on December 16 we will see them in 2 weeks. Recultured today and will get back to them if there is any issues. The wound looks clean and has no odor. Objective Data Objective Data Measurements are the same on the wound size and depth debrides well bleeds easily. We will call with the results of the cultures Vital Signs: Vital Signs Temp Pulse Resp BP O2 Del Method 96 F L 59 L 16 131/43 H Room Air 12/09/22 08:11 12/09/22 08:11 12/09/22 08:11 12/09/22 08:11 12/09/22 08:11 Oxygen Delivery Method Room Air Weight: 169 lb Body Mass Index (BMI) 27.2 Lab / Micro Data Micro: Microbiology 11/11/22 09:10 Wound - Axillary Gram Stain - Final 11/11/22 09:10 Wound - Axillary Wound Culture - Final Staphylococcus epidermidis Actinomyces species 11/11/22 09:10 Wound - Axillary Anaerobic Culture - Final No anaerobic bacteria isolated. Physical Exam Const oriented x3 General Appearance: cooperative Exam Limitations: no limitations HEENT normocephalic Face and Sinus: normal facial exam Eyes General Eye: normal appearance of both eyes Neck full ROM General: normal visual inspection Resp normal respiratory effort Effort and Inspection: able to speak in complete sentences Auscultation: clear to auscultation bilaterally Cardio regular rate and regular rhythm Palpation: normal PMI Rate: regular rate Rhythm: regular rhythm Skin Wounds: wounds noted Wound Narrative: Open wound under the left axilla in the surgical line. Has positive depth Neuro oriented x3 Psych Appearance: grossly normal Speech: normal speech Thought Content: normal thought content Judgement: judgement good Debridement Note Debridement Note Wound debrided: Left axilla Type of Debridement: Excisional debridement Anesthesia Used: 5% Lidocaine Gel Depth: in the subcutaneous layer Percentage of wound debrided: 100 Instrument Used: 3mm curette Tissue Removed: Fibrin Severity: Fat Layer Exposed Amount of bleeding with debridement: Mild Bleeding Controlled with: Compression and gauze Patient tolerated procedure: Patient tolerated procedure well Post-Debridement Measurements and Additional Note: Post-Debridement Measurements/Treatment - Nurse 1 - General Ulcer Assessment Start: 11/11/22 08:52 Freq: Status: Active Protocol: ONELIA Activity Type Activity Date Activity User E-sign Co-sign Detail Recorded Client Recorded Date Recorded By Document 11/11/22 08:52 [facility] [id number] 11/11/22 09:00 [facility] Document 11/18/22 08:10 [facility] [id number] 11/18/22 08:17 [facility] Document 11/25/22 08:22 RB [id number] 11/25/22 08:24 RB Document 12/02/22 08:22 RB Desktop 12/02/22 08:24 RB Document 12/09/22 08:11 [facility] [id number] 12/09/22 08:13 [facility] 11/11/22 11/18/22 11/25/22 08:52 08:10 08:22 - Today's Visit Information Type of service Follow-up Visit Follow-up Visit Follow-up Visit (Physician/HEALTH COUNSELOR (Physician/HEALTH COUNSELOR (Physician/HEALTH COUNSELOR ) ) ) Arrival Mode Ambulatory Ambulatory Ambulatory Transfer Assistance None None None Accompanied by Patient Identification Verified (Name & Yes Yes Yes ) Patient Requires Transmission-Based No No No Precautions Height and Weight Body Mass Index (BMI) 27.2 27.2 27.2 BMI Classification Overweight Overweight Overweight Vital Signs Temperature (97.8 F-99.1 F) 96.7 F L 96.2 F L 96 F L Temperature Source Temporal Temporal Temporal Pulse Rate (60-100) 62 71 55 L Pulse Location Monitor Monitor Monitor Respiratory Rate (12-18) 16 18 Respiratory rate source Observation Observation Observation Oxygen Delivery Method Room Air Room Air Blood Pressure (90/60-120/80) 129/44 H 122/40 H 142/43 H Blood Pressure Mean (mm Hg) 72 67 76 Source Monitor Monitor Monitor Position Sitting Sitting Semi-Fowlers Blood Pressure Location Left Arm Left Arm Left Arm History Since Last Visit- (Skip if this is Patient's initial visit) Have you changed medications since your No No No last visit? Any new allergies or adverse reactions No No No Had a fall/change in ADL's that may No No No increase risk of falls Signs or symptoms of abuse and/or No No No neglect since last visit Have you been in the hospital since your No No No last visit? Has dressing in place as prescribed Yes Yes Yes Has compression in place as prescribed N/A N/A No Has offloadiing in place as prescribed N/A N/A No Experienced any changes in pain level or No No No management Left Footwear Regular Shoe Regular Shoe Right Footwear Regular Shoe Regular Shoe Pain Scale: 0-10 Numeric Is Patient Pain Free? Yes Yes Yes 12/02/22 12/09/22 08:22 08:11 WC - Today's Visit Information Type of service Follow-up Visit Follow-up Visit (Physician/HEALTH COUNSELOR (Physician/HEALTH COUNSELOR ) ) Arrival Mode Ambulatory Ambulatory Transfer Assistance None None Accompanied by Patient Identification Verified (Name & Yes Yes ) Patient Requires Transmission-Based No No Precautions Height and Weight Body Mass Index (BMI) 27.2 27.2 BMI Classification Overweight Overweight Vital Signs Temperature (97.8 F-99.1 F) 96.2 F L 96 F L Temperature Source Temporal Temporal Pulse Rate (60-100) 64 59 L Pulse Location Monitor Monitor Respiratory Rate (12-18) 18 16 Respiratory rate source Observation Observation Oxygen Delivery Method Room Air Blood Pressure (90/60-120/80) 131/46 H 131/43 H Blood Pressure Mean (mm Hg) 74 72 Source Monitor Monitor Position Semi-Fowlers Sitting Blood Pressure Location Left Arm Left Arm History Since Last Visit- (Skip if this is Patient's initial visit) Have you changed medications since your No No last visit? Any new allergies or adverse reactions No No Had a fall/change in ADL's that may No No increase risk of falls Signs or symptoms of abuse and/or No No neglect since last visit Have you been in the hospital since your No No last visit? Has dressing in place as prescribed Yes Yes Has compression in place as prescribed No N/A Has offloadiing in place as prescribed No N/A Experienced any changes in pain level or No No management Left Footwear Regular Shoe Right Footwear Regular Shoe Pain Scale: 0-10 Numeric Is Patient Pain Free? Yes Yes WC - Nurse 1 - General Ulcer Measurement Start: 11/11/22 08:52 Freq: Status: Active Protocol: Activity Type Activity Date Activity User E-sign Co-sign Detail Recorded Client Recorded Date Recorded By Document 11/11/22 08:52 [facility] [id number] 11/11/22 09:00 [facility] Document 11/18/22 08:10 [facility] [id number] 11/18/22 08:17 BM Document 11/25/22 08:22 RB [id number] 11/25/22 08:24 RB Document 12/02/22 08:22 RB Desktop 12/02/22 08:24 RB Document 12/09/22 08:11 [facility] [id number] 12/09/22 08:13 BMF 11/11/22 11/18/22 11/25/22 08:52 08:10 08:22 Wound Center Nurse 1 L axilla -Combined with other wound No No No -Current Size (cm) - Length 0.5 0.4 0.5 -Current Size (cm) - Width 0.9 1.3 0.9 -Current Size (cm) - Depth 0.5 0.5 0.4 -Total Square Cm 0.45 0.52 0.45 -Date of Last Picture (Recall this 11/11/22 11/18/22 field) -Photo Taken Yes Yes -Epithelialization None Present None Present -Tunneling No No No -Undermining/Tunneling No Yes No -Undermining/Tunneling Starts (O'clock 10 ) -Undermining/Tunneling Ends (O'clock) 2 -Maximum Distance (cm) 0.5 -Circular Undermining No No No -Exudate Amt Medium Medium Medium -Exudate Type Serosanguineous Serosanguineous Serosanguineous -Wound Margin Distinct, Distinct, Thickened & Outline Outline Rolled Under Attached Attached -Granulation Amt None Present (0 Large (67-100%) Medium (34-66%) %) -Granulation Quality Red [place] -Slough/Fibrin Yes Yes Yes -Necrosis Amt Large (67-100%) Small (1-33%) Medium (34-66%) -Necrotic Tissue Type Adherent Slough Adherent Slough Adherent Slough -Structure Exposed N/A -Texture (Sangeeta-wound Skin Appearance) Assessed, Assessed, Assessed, Scarring Scarring Scarring -Moisture ([place]-wound Skin Appearance) Assessed Assessed Assessed -Color ([place]-wound Skin Appearance) Assessed Assessed Assessed -Temperature ([place]-wound Skin No Abnormality No Abnormality No Abnormality Appearance) (Pt Warm) (Pt Warm) (Pt Warm) -Tenderness on Palpation ([place]-wound No No No Skin Appearance) -Ulcer Cleansing Rinsed/ Rinsed/ Wound Cleanser Irrigated with Irrigated with Saline Saline -Foul Odor after Cleansing No No No -Anesthetic Used 5% Lidocaine 5% Lidocaine 5% Lidocaine Gel Gel Gel 12/02/22 12/09/22 08:22 08:11 Wound Center Nurse 1 L axilla -Combined with other wound No No -Current Size (cm) - Length 0.5 0.4 -Current Size (cm) - Width 1.4 1.3 -Current Size (cm) - Depth 0.5 0.5 -Total Square Cm 0.70 0.52 -Date of Last Picture (Recall this field) -Photo Taken No -Epithelialization None Present -Tunneling No No -Undermining/Tunneling No No -Undermining/Tunneling Starts (O'clock ) -Undermining/Tunneling Ends (O'clock) -Maximum Distance (cm) -Circular Undermining No No -Exudate Amt Medium -Exudate Type Serosanguineous -Wound Margin Thickened & Thickened & Rolled Under Rolled Under -Granulation Amt Medium (34-66%) Small (1-33%) -Granulation Quality [place] Red -Slough/Fibrin Yes Yes -Necrosis Amt Medium (34-66%) Large (67-100%) -Necrotic Tissue Type Adherent Slough Adherent Slough -Structure Exposed N/A -Texture ([place]ange[place]-wound Skin Appearance) Assessed, Assessed, Scarring Scarring -Moisture ([place]-wound Skin Appearance) Assessed Assessed -Color ([place]-wound Skin Appearance) Assessed Assessed -Temperature ([place]-wound Skin No Abnormality No Abnormality Appearance) (Pt Warm) (Pt Warm) -Tenderness on Palpation ([place]-wound No No Skin Appearance) -Ulcer Cleansing Wound Cleanser Rinsed/ Irrigated with Saline -Foul Odor after Cleansing No No -Anesthetic Used 5% Lidocaine 5% Lidocaine Gel Gel WC - Nurse 2 - General Ulcer CM Notes Start: 11/11/22 08:52 Freq: Status: Active Protocol: Activity Type Activity Date Activity User E-sign Co-sign Detail Recorded Client Recorded Date Recorded By Document 11/11/22 09:03 MW [id number] 11/11/22 09:09 MW Document 11/18/22 08:42 MW [id number] 11/18/22 08:53 MW Edit Result 11/18/22 08:42 MW (1) [id number] 11/19/22 07:55 PL Document 11/25/22 08:30 MW [id number] 11/25/22 08:37 MW Document 12/02/22 08:30 MW [id number] 12/02/22 08:34 MW (1) L axilla - Debridement - Subq, 1st 20sq cm Yes => No 11/11/22 11/18/22 11/25/22 09:03 08:42 08:30 Wound Center Nurse 2 L axilla -Time 09:04 08:42 08:30 -Correct Patient Yes Yes Yes -Correct Side, Site, Position Yes Yes Yes -Correct Procedure Yes Yes Yes -Procedure Performed Yes Yes Yes -Type of Procedure Debridement Debridement Debridement -Clinical Debridement Subcutaneous Subcutaneous Subcutaneous -Tissue Removed Subcutaneous Subcutaneous Subcutaneous -Post Debridement (cm) - Length 0.3 0.3 0.5 -Post Debridement (cm) - Width 1.1 1.3 1.2 -Post Debridement (cm) - Depth 0.9 0.6 0.3 -Total Square (Post) (cm) 0.33 0.39 0.60 -Area of Debridement (cm) - Length 0.3 0.3 0.5 -Area of Debridement (cm) - Width 1.1 1.3 1.2 -Total Square (Area) (cm) 0.33 0.39 0.60 -Tunneling No No No -Undermining/Tunneling No No No -Circular Undermining No No No -Wound/Ulcer Outcome Not Healed Not Healed Not Healed -Ulcer Cleansing Rinsed/ Rinsed/ Rinsed/ Irrigated with Irrigated with Irrigated with Saline Saline Saline -Foul Odor after Cleansing No No No -Bioengineered Tissue No No No -Bleeding Controlled with Pressure Pressure Pressure -Treatment Response Procedure Procedure Procedure Tolerated Well Tolerated Well Tolerated Well -Offloading No No No -Debridement - Subq, 1st 20sq cm Yes No Yes Pain Scale: 0-10 Numeric Is Patient Pain Free? Yes Yes Yes 12/02/22 08:30 Wound Center Nurse 2 L axilla -Time 08:31 -Correct Patient Yes -Correct Side, Site, Position Yes -Correct Procedure Yes -Procedure Performed Yes -Type of Procedure Debridement -Clinical Debridement Subcutaneous -Tissue Removed Dermis -Post Debridement (cm) - Length 0.5 -Post Debridement (cm) - Width 1.0 -Post Debridement (cm) - Depth 0.3 -Total Square (Post) (cm) 0.50 -Area of Debridement (cm) - Length 0.5 -Area of Debridement (cm) - Width 1.0 -Total Square (Area) (cm) 0.50 -Tunneling No -Undermining/Tunneling No -Circular Undermining No -Wound/Ulcer Outcome Not Healed -Ulcer Cleansing Rinsed/ Irrigated with Saline -Foul Odor after Cleansing No -Bioengineered Tissue No -Bleeding Controlled with Pressure -Treatment Response Procedure Tolerated Well -Offloading No -Debridement - Subq, 1st 20sq cm Yes Pain Scale: 0-10 Numeric Is Patient Pain Free? Yes - Nurse 3 - General Ulcer D/C NN Start: 11/11/22 08:52 Freq: Status: Active Protocol: Activity Type Activity Date Activity User E-sign Co-sign Detail Recorded Client Recorded Date Recorded By Document 11/11/22 09:20 [facility] [id number] 11/11/22 09:21 BM Document 11/18/22 09:05 [facility] [id number] 11/18/22 09:06 BMF Edit Result 11/18/22 09:05 BMF (1) [id number] 11/19/22 07:56 PL Document 11/25/22 08:48 RB [id number] 11/25/22 08:49 RB Document 12/02/22 08:34 MW [id number] 12/02/22 08:35 MW (1) L axilla - NPWT Application Charge NPWT & Debridement => NPWT </= 50 sq cm (nc) => (disp) ($) 11/11/22 11/18/22 11/25/22 09:20 09:05 08:48 Wound Care Center Nurse 3 L axilla -Ulcer Cleansing Rinsed/ Rinsed/ Rinsed/ Irrigated with Irrigated with Irrigated with Saline Saline Saline -Foul Odor after Cleansing No No -Negative Pressure Wound Therapy Start Continue -Setting (mmHg) 125 125 -Negative Pressure is Continuous Continuous -Primary Dressing Applied Fibracol Plus 4x4,Mepilex Border -Other Dressing snap applied per dl clothing manager -NPWT Application Charge NPWT </= 50 sq NPWT & cm (disp) ($) Debridement (nc ) -Fibracol Plus 4x4 1 -Mepilex Border 1 Treatment Response Procedure Procedure Procedure Tolerated Well Tolerated Well Tolerated Well Pain Scale: 0-10 Numeric Is Patient Pain Free? Yes Yes Yes Teaching: Wound Center Dressing Your Wound -Person Taught -Teaching Method -Response to teaching WC - Visit Discharge Discharge Condition Stable Stable Stable Ambulatory Status Ambulatory Ambulatory Ambulatory Transportation Private Auto Private Auto Private Auto Accompanied by Medication Reconcilliation completed & No provided to patient/care provider Clinical Summary of Care Provided Yes 12/02/22 08:34 Wound Care Center Nurse 3 L axilla -Ulcer Cleansing Rinsed/ Irrigated with Saline -Foul Odor after Cleansing No -Negative Pressure Wound Therapy N/A -Setting (mmHg) -Negative Pressure is -Primary Dressing Applied Fibracol Plus 4x4,Mepilex Border -Other Dressing -NPWT Application Charge -Fibracol Plus 4x4 1 -Mepilex Border 1 Treatment Response Procedure Tolerated Well Pain Scale: 0-10 Numeric Is Patient Pain Free? Yes Teaching: Wound Center Dressing Your Wound -Person Taught Patient,Family -Teaching Method Discussion, Demonstration -Response to teaching Verbalize understanding WC - Visit Discharge Discharge Condition Stable Ambulatory Status Ambulatory Transportation Private Auto Accompanied by Medication Reconcilliation completed & No provided to patient/care provider Clinical Summary of Care Provided Yes Assessment/Plan Assessment/Plan (1) Dehiscence of surgical wound: CODE(S): T81.31XA - Disruption of external operation (surgical) wound, not elsewhere classified, initial encounter QUALIFIERS: Encounter type: initial encounter Qualified Code(s): T81.31XA - Disruption of external operation (surgical) wound, not elsewhere classified, initial encounter PLAN: Wash area with antibacterial soap apply Bactroban to base of wound nickel thickness and then apply Fibracol and side moistened with Adaptic and foam dressing every day Follow-up in 2 week Cultures obtained will call with results Keep appointment with surgeon for the cancer doctor visit in December (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
--- NOTE | 2022-12-16 12:41 | WC ---
Received a message from patient this AM requesting a call back concerning wound culture results. Called Pt. back after clinic and spoke to him at 1200. He voiced that he is upset with the wound center and our care. Stated he called last week on Wednesday, this week on Wednesday and Wednesday with no return calls. He stated he talked to a nurse yesterday and nurse told him she would give Mat the message to call but Pt didn't hear anything back. I explained to him that Olga Hester SR TECHNICAL SALES CONSULTANT was on vacation last week through yesterday and this nurse is PRN and only working Wednesdays but I called him back in a timely manner today after receiving his message. The SR TECHNICAL SALES CONSULTANT was seeing patients this morning and then addressed his wound culture results from last Wednesday. This nurse explained that it takes 3-5 days for the final results before the SR TECHNICAL SALES CONSULTANT can order anything. New order for antibiotic was called into patient pharmacy of [facility] in [place]. Reviewed culture results with patient and informed of new medicine. He stated he had an appt yesterday with a [facility] physician that said the wound center is ignorant and don't know what we're doing. Patient also requested office notes and culture results be faxed to his PCP and his surgeon Dr. Otoniel Carr as he has an appt. with him tomorrow. Stated he is calling Mich at [facility] and also [facility] to report that the wound center doesn't return calls and he feels he has recieved poor treatment by the SR TECHNICAL SALES CONSULTANT. He is requesting to see a physician at the wound center instead of the SR TECHNICAL SALES CONSULTANT. He stated SR TECHNICAL SALES CONSULTANT is an arrogant woman and only a nurse. This nurse apologized that he feels that his care has been poor. Reassured him that his surgeon would get office notes and culture results pertaining to his wound care. Also explained that he is more than welcome to see another provider at the wound center and I would have our motel front desk clerk call him to cancel appt next week with the SR TECHNICAL SALES CONSULTANT and reschedule with a physician. Spoke with Mat Bass RN Director and informed him of patient complaints and request to see another provider. Patient was apologetic for being upset and calmer at end of phone conversation.
--- NOTE | 2022-12-16 13:34 | WC ---
Spoke to Patient Poppy. Informed her that culture results and office notes were faxed to Dr. Carr the surgeon and Dr. Pozo PCP per patient request. Poppy also asked to order more wound care supplies specifically silicone foam bordered dressing in a smaller 2x2 size. Will order from [facility] this afternoon. Voiced understanding.
--- NOTE | 2022-12-16 14:44 | WC ---
This nurse spoke with Mich Long the patient advocate and relayed the events of the patients complaint. The patient called twice on 12/15/22 and the call was returned and the patient was informed that the provider had not reviewed the results of the culture and that he would be called when the results were obtained.
== END 2022-12-10 23:59 | disposition home or self-care (01) ==
LOC: WC 08:15
PROVIDERS: PCP Family Medicine; Referring Provider Family Medicine; Visit Provider Nurse Practitioner
DX: T81.31XA Disruption of external operation (surgical) wound, not elsewhere classified, initial encounter (principal); C49.6 Malignant neoplasm of connective and soft tissue of trunk, unspecified; Y83.8 Other surgical procedures as the cause of abnormal reaction of the patient, or of later complication, without mention of misadventure at the time of the procedure; Z79.82 Long term (current) use of aspirin; Z79.899 Other long term (current) drug therapy
CPT/HCPCS: 11042; 87070; 87075; 87077; 87186; 87205; 97607

== ENCOUNTER 2023-01-07 08:45 | Outpatient (RCR) | payer MEDICARE, OTHER, SELFPAY ==
[2022-12-11 00:13] VITALS: BP 131/43; PULSE 59; RESP 16; TEMP 35.5; BMI 27.2
--- NOTE | 2022-12-16 13:05 | WC ---
PTS WOJCIECH CALLED YESTERDAY 12/15/22. ASKING FOR CX RESULTS AND REQUESTING THAT PTS RECORDS BE FAXED TO ORTHO/ONCO SURGEON WHO THEY WILL BE SEEING ON 12/17. THIS NURSE CALLED BACK ON 12/15/22. SPOKE W/ WOJCIECH. UPDATED HER THAT Zaire MACKAY RN WAITING ON NEW ORDERS FROM MICHAEL IN RESPONSE TO CX AND WOULD CALL HER BACK TO UPDATE W/ ATB ORDER. WOJCIECH VOICED UNDERSTANDING AND AGREEABLE.
[2022-12-24 08:41] VITALS: RESP 16; BMI 27.2
--- NOTE | 2022-12-24 13:35 | HP.PCM_ITS ---
History of Present Illness Date of Service: 12/24/22 Chief Complaint: Non healing surgical wound History of Wound: Mr. Hutchison is a 77 yo who is a transfer of care to [place]. Had been seen by another provider at this facility for non healing surgical wound/wound breakdown. Has been on several courses of antibiotics as well as topical antibiotics. S/p surgical intervention for Sarcoma done at the [facility] main campus. Prior to this, had 25 radiation therapy treatment for tumor size reduction. Per patient and his , surgical margins were cancer free post surgery. [facility] Medical History (Updated 12/24/22 @ 13:[address] Briana Junior MD) Arthritis Atherosclerotic heart disease of [place] coronary artery without angina pectoris Bone fracture Cataracts, bilateral Chronic bronchitis CKD (chronic kidney disease) stage 3, GFR 30-59 ml/min Essential hypertension Gout History of back problems Hyperlipemia Hypothyroidism Low back pain Sarcoma of chest wall Home Medications atenolol 50 mg tablet 50 mg PO QHS 08/03/17 [History Last Taken Unknown] atorvastatin 40 mg tablet 40 mg PO QHS 08/03/17 [History Last Taken Unknown] psyllium husk 0.52 gram capsule (Daily Fiber) 0.52 g PO DAILY 01/13/18 [History Last Taken Unknown] levothyroxine 50 mcg tablet 75 mcg PO DAILY 09/29/19 [History Last Taken Unknown] lisinopril 30 mg tablet 30 mg PO DAILY 12/05/20 [History Last Taken Unknown] aspirin 81 mg tablet,delayed release (Adult Aspirin Regimen) 81 mg PO .COMPLEX 10/20/21 [History Last Taken Unknown] allopurinol 100 mg tablet 300 mg PO QHS 06/11/22 [History Last Taken Unknown] oxycodone 5 mg tablet 2.5 mg PO TID PRN 06/11/22 [History Last Taken Unknown] nitroglycerin 0.4 mg sublingual tablet 0.4 mg sublingual Q5-15M PRN chest pain #25 tabs 06/15/22 [Rx Last Taken Unknown] primidone 50 mg tablet 50 mg PO QAM #30 tabs 12/15/22 [Rx Last Taken Unknown] Allergy/AdvReac Type Severity Reaction Status Date / Time doxycycline AdvReac Intermediate Rash Verified 09/29/22 14:50 Family History Father CAD (coronary artery disease) Hypertension Congestive heart failure Heart disease Brother Hypertension Heart disease Mother Ovarian cancer Surgical History History of arthroscopy of shoulder History of cardiac catheterization History of inguinal hernia repair History of repair of rotator cuff Postsurgical percutaneous transluminal coronary angioplasty (PTCA) status Presence of stent in coronary artery (~01/29/14) Social History Smoking Status: Former smoker Tobacco: How many years used: 30 second hand exposure: No alcohol intake: current substance use type: does not use what type of physical activity do you participate in: none magaly/scientologist: Confucianist seatbelt use: always ROS Constitutional Constitutional: Denies fatigue, frequent falls, headache(s), increased appetite, lethargy, night sweats or poor appetite Eyes Eyes: Denies change in eye color, change in vision, diplopia, discharge from eye(s), discongugate gaze or double vision ENT HEENT: Denies epistaxis, facial pain, foreign body in nose, halitosis, headache(s), hearing loss, mouth pain or neck mass Cardiovascular Cardiovascular: Denies bluish discoloration of hand/feet, chest pain at rest, chest pain with activity, clubbing, cyanosis or diaphoresis Respiratory/Chest Respiratory/Chest: Denies difficulty clearing secretions, dry cough, dyspnea, dyspnea on exertion, excessive phlegm production, hemoptysis or hoarseness Gastrointestinal Gastrointestinal: Denies chewing difficulty, coffee ground emesis, constipation, dry heaves, excessive flatus or fecal incontinence Genitourinary Genitourinary: Denies abdominal discomfort, contractions or flank pain Musculoskeletal Musculoskeletal: Denies joint swelling, loss of height, muscle weakness or neck pain Integumentary Integumentary: Denies change in hair, change in pigmentation, erythema, furuncle, jaundice or nail changes Neurologic Neurologic: Denies burning sensations, confusion, convulsions, disequilibrium, frequent falls, memory loss or numbness Psychiatric Psychiatric: Denies cognitive impairment, confusion, depression, hallucinations, homicidal ideation, hopelessness, irritability, memory loss or panic attacks Endocrine Endocrinology: Denies deepening of the voice, excessive sweating, heat intolerance, increase in ring/shoe/hat size, palpitations or polydipsia Allergic/Immunologic Allergic/Immunologic: Denies lip swelling, seasonal rhinorrhea, rhinitis, tongue swelling, wheezing or asthma Vital Signs Vital Signs Vital Signs: 12/24/22 08:41 Temperature Source Temporal Respiratory Rate 16 Blood Pressure Source Monitor Blood Pressure Position Sitting Oxygen Delivery Method Room Air Weight Weight: 169 lb Body Mass Index (BMI) 27.2 Physical Exam Const alert, oriented x3 and no apparent distress General Appearance: cooperative and comfortable HEENT normocephalic and head/scalp atraumatic Head and Scalp: normal to inspection Eyes EOMs intact bilaterally General Eye: normal appearance of both eyes Neck General: normal visual inspection Resp normal respiratory effort Effort and Inspection: able to speak in complete sentences Skin Wounds: wounds noted Neuro oriented x3, CN's II-XII intact bilaterally, moves all extremities and no focal motor deficits Psych mental status grossly normal, thought process normal, cooperative and affect normal Debridement Note Debridement Note Wound debrided: Left Axillary Area Type of Debridement: Excisional debridement Anesthesia Used: 4% Lidocaine Solution Depth: Down to and including healthy tissue and in the subcutaneous layer Percentage of wound debrided: 100 Instrument Used: 5mm curette Tissue Removed: Slough and devitalized tissue Severity: Fat Layer Exposed Amount of bleeding with debridement: Mild Bleeding Controlled with: Pressure Patient tolerated procedure: Patient tolerated procedure well Post-Debridement Measurements and Additional Note: Post-Debridement Measurements/Treatment - Nurse 1 - General Ulcer Assessment Start: 12/24/22 08:41 Freq: Status: Active Protocol: .LOWMARIE Activity Type Activity Date Activity User E-sign Co-sign Detail Recorded Client Recorded Date Recorded By Document 12/24/22 08:41 [facility] [id number] 12/24/22 08:49 [facility] 12/24/22 08:41 - Today's Visit Information Type of service Follow-up Visit (Physician/COMPUTER ENGINEER ) Arrival Mode Ambulatory Transfer Assistance None Accompanied by Patient Identification Verified (Name & Yes ) Patient Requires Transmission-Based No Precautions Height and Weight Body Mass Index (BMI) 27.2 BMI Classification Overweight Vital Signs Temperature Source Temporal Pulse Location Monitor Respiratory Rate (12-18) 16 Respiratory rate source Observation Oxygen Delivery Method Room Air Source Monitor Position Sitting History Since Last Visit- (Skip if this is Patient's initial visit) Have you changed medications since your No last visit? Any new allergies or adverse reactions No Had a fall/change in ADL's that may No increase risk of falls Signs or symptoms of abuse and/or No neglect since last visit Have you been in the hospital since your No last visit? Has dressing in place as prescribed Yes Has compression in place as prescribed N/A Has offloadiing in place as prescribed N/A Experienced any changes in pain level or No management Left Footwear Regular Shoe Right Footwear Regular Shoe Pain Scale: 0-10 Numeric Is Patient Pain Free? Yes MIHIR - Nurse 1 - General Ulcer Measurement Start: 12/24/22 08:41 Freq: Status: Active Protocol: Activity Type Activity Date Activity User E-sign Co-sign Detail Recorded Client Recorded Date Recorded By Document 12/24/22 08:41 [facility] [id number] 12/24/22 08:49 [facility] 12/24/22 08:41 Wound Center Nurse 1 #1- L axilla/rib -Combined with other wound No -Current Size (cm) - Length 0.9 -Current Size (cm) - Width 2.1 -Current Size (cm) - Depth 0.7 -Total Square Cm 1.89 -Date of Last Picture (Recall this 12/24/22 field) -Photo Taken Yes -Epithelialization None Present -Tunneling No -Undermining/Tunneling No -Circular Undermining No -Exudate Amt Medium -Exudate Type Serosanguineous -Wound Margin Distinct, Outline Attached -Granulation Amt Small (1-33%) -Granulation Quality Red -Slough/Fibrin Yes -Necrosis Amt Large (67-100%) -Necrotic Tissue Type Adherent Slough -Texture (Sangeeta-wound Skin Appearance) Assessed, Scarring -Moisture (Sangeeta-wound Skin Appearance) Assessed -Color (Sangeeta-wound Skin Appearance) Assessed -Temperature (Sangeeta-wound Skin No Abnormality Appearance) (Pt Warm) -Tenderness on Palpation (Sangeeta-wound No Skin Appearance) -Ulcer Cleansing Rinsed/ Irrigated with Saline -Foul Odor after Cleansing No -Anesthetic Used 5% Lidocaine Gel MIHIR - Nurse 2 - General Ulcer CM Notes Start: 12/24/22 08:41 Freq: Status: Active Protocol: Activity Type Activity Date Activity User E-sign Co-sign Detail Recorded Client Recorded Date Recorded By Document 12/24/22 09:21 JF [id number] 12/24/22 09:33 JF Edit Result 12/24/22 09:21 JF (1) [id number] 12/24/22 09:44 JF (1) #1- L axilla/rib - Bioengineered Tissue No => Yes - Type of Bioengineered Tissue => Epicord - Expiration Date => 03/12/27 - Product Lot Number => [id number] - Percent Used => 100 - Lot number of Saline Used => [id number] - Debridement - Subq, 1st 20sq cm Yes => No - Apply Skin Sub - 1st 25 sq cm - Legs => 1 - Epicord (per sq cm) => 6 12/24/22 09:21 Wound Center Nurse 2 -Time 09:22 -Correct Patient Yes -Correct Side, Site, Position Yes -Correct Procedure Yes -Procedure Performed Yes -Type of Procedure Debridement -Clinical Debridement Subcutaneous -Tissue Removed Subcutaneous -Post Debridement (cm) - Length 0.6 -Post Debridement (cm) - Width 2.0 -Post Debridement (cm) - Depth 1.5 -Total Square (Post) (cm) 1.20 -Area of Debridement (cm) - Length 0.6 -Area of Debridement (cm) - Width 2.0 -Total Square (Area) (cm) 1.20 -Tunneling No -Undermining/Tunneling No -Wound/Ulcer Outcome Not Healed -Ulcer Cleansing Rinsed/ Irrigated with Saline -Foul Odor after Cleansing No -Bioengineered Tissue Yes -Type of Bioengineered Tissue Epicord -Expiration Date 03/12/27 -Product Lot Number [id number] -Percent Used 100 -Lot number of Saline Used [id number] -Bleeding Controlled with Pressure -Treatment Response Procedure Tolerated Well -Offloading No -Debridement - Subq, 1st 20sq cm No -Apply Skin Sub - 1st 25 sq cm - Legs 1 -Epicord (per sq cm) 6 Pain Scale: 0-10 Numeric Is Patient Pain Free? Yes WC - Nurse 3 - General Ulcer D/C NN Start: 12/24/22 08:41 Freq: Status: Active Protocol: Activity Type Activity Date Activity User E-sign Co-sign Detail Recorded Client Recorded Date Recorded By Document 12/24/22 09:48 RB [id number] 12/24/22 09:48 RB 12/24/22 09:48 Wound Care Center Nurse 3 #1- L axilla/rib -Primary Dressing Applied Mepilex Border -Mepilex Border 1 Treatment Response Procedure Tolerated Well Pain Scale: 0-10 Numeric Is Patient Pain Free? Yes Teaching: Wound Center Dressing Your Wound -Person Taught Patient -Teaching Method Discussion, Demonstration -Response to teaching Verbalize understanding WC - Visit Discharge Discharge Condition Stable Ambulatory Status Ambulatory Transportation Private Auto Medication Reconcilliation completed & No provided to patient/care provider Clinical Summary of Care Provided Yes Charges/Coding Visit Charges Office Visits / Consults: 25140 OV L3 New Procedures Integumentary 150xxx-152xx: 74327 Skin sub graft trnk/arm/leg Assessment/Plan Assessment/Plan (1) Nonhealing surgical wound: CODE(S): T81.89XA - Other complications of procedures, not elsewhere classified, initial encounter QUALIFIERS: Encounter type: initial encounter Qualified Code(s): T81.89XA - Other complications of procedures, not elsewhere classified, initial encounter (2) Dehiscence of surgical wound: CODE(S): T81.31XA - Disruption of external operation (surgical) wound, not elsewhere classified, initial encounter QUALIFIERS: Encounter type: initial encounter Qualified Code(s): T81.31XA - Disruption of external operation (surgical) wound, not elsewhere classified, initial encounter (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 Currently on the second course of 2 weeks of Levofloxacin, no significant concerns for infection, DC. Now approved for Epifix/Epicord. Initial application of Epicord done today using 100% of product. Moistened with saline, Covered with adaptic touch and secured with steristrips. Aquacel extra over top to help with drainage. Leave in place x 1 week. Optimal dietary protein, Vitamin C, D and Zinc recommended. Patient and spouse voiced understanding. Continue other chronic wound care plan. Discuss HBO at next visit due to radiation injury. Their questions were answered and they were advised to let us know if they have any further questions or concerns.
[2022-12-31 08:51] VITALS: BP 129/54; PULSE 69; RESP 18; TEMP 35.3; BMI 27.2
--- NOTE | 2022-12-31 10:28 | PN.PCM_ITS ---
History of Present Illness Date of Service: 12/31/22 Chief Complaint: Non healing surgical wound History of Wound: Mr. Hutchison is a 77 yo who is a transfer of care to [place]. Had been seen by another provider at this facility for non healing surgical wound/wound breakdown. Has been on several courses of antibiotics as well as topical antibiotics. 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 Prior to this, had 25 radiation therapy treatment for tumor size reduction. Per patient and his , surgical margins were cancer free post surgery. Progress of Wound: Some improvement in wound depth. Has had 1 application of EpiFix. No new concerns reported. Objective Data Objective Data Vital Signs: Vital Signs Temp Pulse Resp BP O2 Del Method 95.6 F L 69 18 129/54 H Room Air 12/31/22 08:51 12/31/22 08:51 12/31/22 08:51 12/31/22 08:51 12/24/22 08:41 Oxygen Delivery Method Room Air Weight: 169 lb Body Mass Index (BMI) 27.2 Charges/Coding Procedures Integumentary 150xxx-152xx: 11926 Skin sub graft trnk/arm/leg Physical Exam Const alert, oriented x3 and no apparent distress General Appearance: cooperative and comfortable HEENT normocephalic and head/scalp atraumatic Head and Scalp: normal to inspection Eyes EOMs intact bilaterally General Eye: normal appearance of both eyes Neck General: normal visual inspection Resp normal respiratory effort Effort and Inspection: able to speak in complete sentences Skin Wounds: wounds noted Neuro oriented x3, CN's II-XII intact bilaterally, moves all extremities and no focal motor deficits Psych mental status grossly normal, thought process normal, cooperative and affect normal Debridement Note Debridement Note Wound debrided: Left Axillary Area Type of Debridement: Excisional debridement Anesthesia Used: 4% Lidocaine Solution Depth: Down to and including healthy tissue and in the subcutaneous layer Percentage of wound debrided: 100 Instrument Used: 5mm curette, #15 blade and Forceps Tissue Removed: Slough and devitalized tissue Severity: Fat Layer Exposed Amount of bleeding with debridement: Mild Bleeding Controlled with: Pressure Patient tolerated procedure: Patient tolerated procedure well Post-Debridement Measurements and Additional Note: Post-Debridement Measurements/Treatment MIHIR - Nurse 1 - General Ulcer Assessment Start: 12/24/22 08:41 Freq: Status: Active Protocol: WC.LOWEXT Activity Type Activity Date Activity User E-sign Co-sign Detail Recorded Client Recorded Date Recorded By Document 12/24/22 08:41 [facility] [id number] 12/24/22 08:49 [facility] Document 12/31/22 08:51 RB Desktop 12/31/22 08:52 RB 12/24/22 12/31/22 08:41 08:51 WC - Today's Visit Information Type of service Follow-up Visit Follow-up Visit (Physician/AUTOMOTIVE PRODUCT ENGINEER (Physician/AUTOMOTIVE PRODUCT ENGINEER ) ) Arrival Mode Ambulatory Ambulatory Transfer Assistance None None Accompanied by Patient Identification Verified (Name & Yes Yes ) Patient Requires Transmission-Based No No Precautions Height and Weight Body Mass Index (BMI) 27.2 27.2 BMI Classification Overweight Overweight Vital Signs Temperature (97.8 F-99.1 F) 95.6 F L Temperature Source Temporal Temporal Pulse Rate (60-100) 69 Pulse Location Monitor Monitor Respiratory Rate (12-18) 16 18 Respiratory rate source Observation Observation Oxygen Delivery Method Room Air Blood Pressure (90/60-120/80) 129/54 H Blood Pressure Mean (mm Hg) 79 Source Monitor Monitor Position Sitting Sitting Blood Pressure Location Left Arm History Since Last Visit- (Skip if this is Patient's initial visit) Have you changed medications since your No No last visit? Any new allergies or adverse reactions No No Had a fall/change in ADL's that may No No increase risk of falls Signs or symptoms of abuse and/or No No neglect since last visit Have you been in the hospital since your No No last visit? Has dressing in place as prescribed Yes Yes Has compression in place as prescribed N/A No Has offloadiing in place as prescribed N/A No Experienced any changes in pain level or No No management Left Footwear Regular Shoe Right Footwear Regular Shoe Pain Scale: 0-10 Numeric Is Patient Pain Free? Yes Yes - Nurse 1 - General Ulcer Measurement Start: 12/24/22 08:41 Freq: Status: Active Protocol: Activity Type Activity Date Activity User E-sign Co-sign Detail Recorded Client Recorded Date Recorded By Document 12/24/22 08:41 [facility] [id number] 12/24/22 08:49 [facility] Document 12/31/22 08:51 RB Desktop 12/31/22 08:52 RB 12/24/22 12/31/22 08:41 08:51 Wound Center Nurse 1 #1- L axilla/rib -Combined with other wound No No -Current Size (cm) - Length 0.9 0.8 -Current Size (cm) - Width 2.1 1.5 -Current Size (cm) - Depth 0.7 0.7 -Total Square Cm 1.89 1.20 -Date of Last Picture (Recall this 12/24/22 field) -Photo Taken Yes -Epithelialization None Present -Tunneling No No -Undermining/Tunneling No No -Circular Undermining No No -Exudate Amt Medium Large -Exudate Type Serosanguineous Serosanguineous -Wound Margin Distinct, Thickened & Outline Rolled Under Attached -Granulation Amt Small (1-33%) Medium (34-66%) -Granulation Quality [place] -Slough/Fibrin Yes Yes -Necrosis Amt Large (67-100%) Medium (34-66%) -Necrotic Tissue Type Adherent Slough Adherent Slough -Structure Exposed N/A -Texture (Sangeeta-wound Skin Appearance) Assessed, Assessed, Scarring Scarring -Moisture (Sangeeta-wound Skin Appearance) Assessed Assessed -Color (Sangeeta-wound Skin Appearance) Assessed Assessed -Temperature (Sangeeta-wound Skin No Abnormality No Abnormality Appearance) (Pt Warm) (Pt Warm) -Tenderness on Palpation (Sangeeta-wound No No Skin Appearance) -Ulcer Cleansing Rinsed/ Wound Cleanser Irrigated with Saline -Foul Odor after Cleansing No No -Anesthetic Used 5% Lidocaine 5% Lidocaine Gel Gel WC - Nurse 2 - General Ulcer CM Notes Start: 12/24/22 08:41 Freq: Status: Active Protocol: Activity Type Activity Date Activity User E-sign Co-sign Detail Recorded Client Recorded Date Recorded By Document 12/24/22 09:21 JEANNETTE [id number] 12/24/22 09:33 JF Edit Result 12/24/22 09:21 JF (1) [id number] 12/24/22 09:44 JF Document 12/31/22 09:07 JF Desktop 12/31/22 09:22 JF (1) #1- L axilla/rib - Bioengineered Tissue No => Yes - Type of Bioengineered Tissue => Epicord - Expiration Date => 03/12/27 - Product Lot Number => [id number] - Percent Used => 100 - Lot number of Saline Used => [id number] - Debridement - Subq, 1st 20sq cm Yes => No - Apply Skin Sub - 1st 25 sq cm - Legs => 1 - Epicord (per sq cm) => 6 12/24/22 12/31/22 09:21 09:07 Wound Center Nurse 2 #1- L axilla/rib -Time : 09:09 -Correct Patient Yes Yes -Correct Side, Site, Position Yes Yes -Correct Procedure Yes Yes -Procedure Performed Yes Yes -Type of Procedure Debridement Debridement -Clinical Debridement Subcutaneous Subcutaneous -Tissue Removed Subcutaneous Subcutaneous -Post Debridement (cm) - Length 0.6 0.5 -Post Debridement (cm) - Width 2.0 2.0 -Post Debridement (cm) - Depth 1.5 1.0 -Total Square (Post) (cm) 1.20 1.00 -Area of Debridement (cm) - Length 0.6 0.5 -Area of Debridement (cm) - Width 2.0 2.0 -Total Square (Area) (cm) 1.20 1.00 -Tunneling No No -Undermining/Tunneling No No -Circular Undermining No -Wound/Ulcer Outcome Not Healed Not Healed -Ulcer Cleansing Rinsed/ Rinsed/ Irrigated with Irrigated with Saline Saline -Foul Odor after Cleansing No No -Bioengineered Tissue Yes Yes -Type of Bioengineered Tissue Epicord Epicord -Expiration Date 03/12/27 03/12/27 -Product Lot Number [id number] -Percent Used 100 100 -Lot number of Saline Used [id number] -Bleeding Controlled with Pressure Pressure -Treatment Response Procedure Procedure Tolerated Well Tolerated Well -Offloading No No -Debridement - Subq, 1st 20sq cm No No -Apply Skin Sub - 1st 25 sq cm - Legs 1 1 -Epicord (per sq cm) 6 6 Pain Scale: 0-10 Numeric Is Patient Pain Free? Yes Yes WC - Nurse 3 - General Ulcer D/C NN Start: 12/24/22 08:41 Freq: Status: Active Protocol: Activity Type Activity Date Activity User E-sign Co-sign Detail Recorded Client Recorded Date Recorded By Document 12/24/22 09:48 RB [id number] 12/24/22 09:48 RB Document 12/31/22 09:25 BMF Desktop 12/31/22 09:25 BMF 12/24/22 12/31/22 09:48 09:25 Wound Care Center Nurse 3 #1- L axilla/rib -Primary Dressing Applied Mepilex Border Mepilex Border -Other Dressing epicord -Mepilex Border 1 1 Treatment Response Procedure Procedure Tolerated Well Tolerated Well Pain Scale: 0-10 Numeric Is Patient Pain Free? Yes Yes Teaching: Wound Center Dressing Your Wound -Person Taught Patient -Teaching Method Discussion, Demonstration -Response to teaching Verbalize understanding WC - Visit Discharge Discharge Condition Stable Stable Ambulatory Status Ambulatory Ambulatory Transportation Private Auto Private Auto Accompanied by Medication Reconcilliation completed & No provided to patient/care provider Clinical Summary of Care Provided Yes Assessment/Plan Assessment/Plan (1) Nonhealing surgical wound: CODE(S): T81.89XA - Other complications of procedures, not elsewhere classified, initial encounter QUALIFIERS: Encounter type: initial encounter Qualified Code(s): T81.89XA - Other complications of procedures, not elsewhere classified, initial encounter (2) Dehiscence of surgical wound: CODE(S): T81.31XA - Disruption of external operation (surgical) wound, not elsewhere classified, initial encounter QUALIFIERS: Encounter type: initial encounter Qualified Code(s): T81.31XA - Disruption of external operation (surgical) wound, not elsewhere classified, initial encounter (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 Improving. 2nd application of Epicord done today using 100% of product. Moistened with ifeoma ine, Covered with adaptic touch and secured with steristrips. Aquacel extra over top to help with drainage. Leave in place x 1 week. Optimal dietary protein, Vitamin C, D and Zinc recommended. Patient and spouse voiced understanding. Continue other chronic wound care plan. HBO discussed however patient has significant claustrophobia. Their questions were answered and they were advised to let us know if they have any further questions or concerns.
[2023-01-07 08:37] VITALS: BP 125/47; PULSE 58; RESP 16; TEMP 35.4; BMI 27.2
--- NOTE | 2023-01-07 13:31 | PN.PCM_ITS ---
History of Present Illness Date of Service: 01/07/23 Chief Complaint: Non healing surgical wound History of Wound: Mr. Hutchison is a 77 yo who is a transfer of care to [place]. Had been seen by another provider at this facility for non healing surgical wound/wound breakdown. Has been on several courses of antibiotics as well as topical antibiotics. 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 Prior to this, had 25 radiation therapy treatment for tumor size reduction. Per patient and his , surgical margins were cancer free post surgery. Progress of Wound: Some improvement in wound depth. Has had 2 applications of EpiFix. No new concerns reported. Objective Data Objective Data Vital Signs: Vital Signs Temp Pulse Resp BP O2 Del Method 95.8 F L 58 L 16 125/47 H Room Air 01/07/23 08:37 01/07/23 08:37 01/07/23 08:37 01/07/23 08:37 01/07/23 08:37 Oxygen Delivery Method Room Air Weight: 169 lb Body Mass Index (BMI) 27.2 Charges/Coding Procedures Integumentary 150xxx-152xx: 33509 Skin sub graft trnk/arm/leg Physical Exam Const alert, oriented x3 and no apparent distress General Appearance: cooperative and comfortable HEENT normocephalic and head/scalp atraumatic Head and Scalp: normal to inspection Eyes EOMs intact bilaterally General Eye: normal appearance of both eyes Neck General: normal visual inspection Resp normal respiratory effort Effort and Inspection: able to speak in complete sentences Skin Wounds: wounds noted Neuro oriented x3, CN's II-XII intact bilaterally, moves all extremities and no focal motor deficits Psych mental status grossly normal, thought process normal, cooperative and affect normal Debridement Note Debridement Note Wound debrided: Left Axillary Area Type of Debridement: Excisional debridement Anesthesia Used: 4% Lidocaine Solution Depth: Down to and including healthy tissue and in the subcutaneous layer Percentage of wound debrided: 100 Instrument Used: 5mm curette Tissue Removed: Slough and devitalized tissue Severity: Fat Layer Exposed Amount of bleeding with debridement: Mild Bleeding Controlled with: Pressure Patient tolerated procedure: Patient tolerated procedure well Post-Debridement Measurements and Additional Note: Post-Debridement Measurements/Treatment MIHIR - Nurse 1 - General Ulcer Assessment Start: 12/24/22 08:41 Freq: Status: Active Protocol: WC.LOWEXT Activity Type Activity Date Activity User E-sign Co-sign Detail Recorded Client Recorded Date Recorded By Document 12/24/22 08:41 [facility] [id number] 12/24/22 08:49 [facility] Document 12/31/22 08:51 RB Desktop 12/31/22 08:52 RB Document 01/07/23 08:37 [facility] Desktop 01/07/23 08:42 [facility] 12/24/22 12/31/22 01/07/23 08:41 08:51 08:37 WC - Today's Visit Information Type of service Follow-up Visit Follow-up Visit Follow-up Visit (Physician/PHOTOENGRAVING PRINTER (Physician/PHOTOENGRAVING PRINTER (Physician/PHOTOENGRAVING PRINTER ) ) ) Arrival Mode Ambulatory Ambulatory Ambulatory Transfer Assistance None None None Accompanied by Patient Identification Verified (Name & Yes Yes Yes ) Patient Requires Transmission-Based No No No Precautions Height and Weight Body Mass Index (BMI) 27.2 27.2 27.2 BMI Classification Overweight Overweight Overweight Vital Signs Temperature (97.8 F-99.1 F) 95.6 F L 95.8 F L Temperature Source Temporal Temporal Temporal Pulse Rate (60-100) 69 58 L Pulse Location Monitor Monitor Monitor Respiratory Rate (12-18) 16 18 16 Respiratory rate source Observation Observation Observation Oxygen Delivery Method Room Air Room Air Blood Pressure (90/60-120/80) 129/54 H 125/47 H Blood Pressure Mean (mm Hg) 79 73 Source Monitor Monitor Monitor Position Sitting Sitting Sitting Blood Pressure Location Left Arm Left Arm History Since Last Visit- (Skip if this is Patient's initial visit) Have you changed medications since your No No No last visit? Any new allergies or adverse reactions No No No Had a fall/change in ADL's that may No No No increase risk of falls Signs or symptoms of abuse and/or No No No neglect since last visit Have you been in the hospital since your No No No last visit? Has dressing in place as prescribed Yes Yes Yes Has compression in place as prescribed N/A No N/A Has offloadiing in place as prescribed N/A No N/A Experienced any changes in pain level or No No No management Left Footwear Regular Shoe Regular Shoe Right Footwear Regular Shoe Regular Shoe Pain Scale: 0-10 Numeric Is Patient Pain Free? Yes Yes Yes - Nurse 1 - General Ulcer Measurement Start: 12/24/22 08:41 Freq: Status: Active Protocol: Activity Type Activity Date Activity User E-sign Co-sign Detail Recorded Client Recorded Date Recorded By Document 12/24/22 08:41 [facility] [id number] 12/24/22 08:49 [facility] Document 12/31/22 08:51 RB Desktop 12/31/22 08:52 RB Document 01/07/23 08:37 [facility] Desktop 01/07/23 08:42 BMF 12/24/22 12/31/22 01/07/23 08:41 08:51 08:37 Wound Center Nurse 1 #1- L axilla/rib -Combined with other wound No No No -Current Size (cm) - Length 0.9 0.8 0.6 -Current Size (cm) - Width 2.1 1.5 1.9 -Current Size (cm) - Depth 0.7 0.7 -Total Square Cm 1.89 1.20 1.14 -Date of Last Picture (Recall this 12/24/22 01/07/23 field) -Photo Taken Yes Yes -Epithelialization None Present Small 1-33% -Tunneling No No No -Undermining/Tunneling No No No -Circular Undermining No No No -Exudate Amt Medium Large Medium -Exudate Type Serosanguineous Serosanguineous Serosanguineous -Wound Margin Distinct, Thickened & Distinct, Outline Rolled Under Outline Attached Attached -Granulation Amt Small (1-33%) Medium (34-66%) Small (1-33%) -Granulation Quality Red [place] Red -Slough/Fibrin Yes Yes Yes -Necrosis Amt Large (67-100%) Medium (34-66%) Large (67-100%) -Necrotic Tissue Type Adherent Slough Adherent Slough Adherent Slough -Structure Exposed N/A -Texture (Sangeeta-wound Skin Appearance) Assessed, Assessed, Assessed, Scarring Scarring Scarring -Moisture (Sangeeta-wound Skin Appearance) Assessed Assessed Assessed -Color (Sangeeta-wound Skin Appearance) Assessed Assessed Assessed -Temperature (Sangeeta-wound Skin No Abnormality No Abnormality No Abnormality Appearance) (Pt Warm) (Pt Warm) (Pt Warm) -Tenderness on Palpation (Sangeeta-wound No No No Skin Appearance) -Ulcer Cleansing Rinsed/ Wound Cleanser Soap and Water Irrigated with Saline -Foul Odor after Cleansing No No No -Anesthetic Used 5% Lidocaine 5% Lidocaine 5% Lidocaine Gel Gel Gel WC - Nurse 2 - General Ulcer CM Notes Start: 12/24/22 08:41 Freq: Status: Active Protocol: Activity Type Activity Date Activity User E-sign Co-sign Detail Recorded Client Recorded Date Recorded By Document 12/24/22 09:21 JF [id number] 12/24/22 09:33 JF Edit Result 12/24/22 09:21 JF (1) [id number] 12/24/22 09:44 JF Document 12/31/22 09:07 JF Desktop 12/31/22 09:22 JF Document 01/07/23 09:18 GM Desktop 01/07/23 09:24 GM (1) #1- L axilla/rib - Bioengineered Tissue No => Yes - Type of Bioengineered Tissue => Epicord - Expiration Date => 03/12/27 - Product Lot Number => [id number] - Percent Used => 100 - Lot number of Saline Used => [id number] - Debridement - Subq, 1st 20sq cm Yes => No - Apply Skin Sub - 1st 25 sq cm - Legs => 1 - Epicord (per sq cm) => 6 12/24/22 12/31/22 01/07/23 09:21 09:07 09:18 Wound Center Nurse 2 #1- L axilla/rib -Time 09: 09:09 09:18 -Correct Patient Yes Yes Yes -Correct Side, Site, Position Yes Yes Yes -Correct Procedure Yes Yes Yes -Procedure Performed Yes Yes Yes -Type of Procedure Debridement Debridement Debridement -Clinical Debridement Subcutaneous Subcutaneous Subcutaneous -Tissue Removed Subcutaneous Subcutaneous Subcutaneous -Post Debridement (cm) - Length 0.6 0.5 0.5 -Post Debridement (cm) - Width 2.0 2.0 2.0 -Post Debridement (cm) - Depth 1.5 1.0 0.7 -Total Square (Post) (cm) 1.20 1.00 1.00 -Area of Debridement (cm) - Length 0.6 0.5 0.5 -Area of Debridement (cm) - Width 2.0 2.0 2.0 -Total Square (Area) (cm) 1.20 1.00 1.00 -Tunneling No No No -Undermining/Tunneling No No No -Circular Undermining No -Wound/Ulcer Outcome Not Healed Not Healed Not Healed -Ulcer Cleansing Rinsed/ Rinsed/ Rinsed/ Irrigated with Irrigated with Irrigated with Saline Saline Saline -Foul Odor after Cleansing No No No -Bioengineered Tissue Yes Yes Yes -Type of Bioengineered Tissue Epicord Epicord Epicord -Expiration Date 03/12/27 03/12/27 08/11/27 -Product Lot Number [id number] -Percent Used 100 100 100 -Lot number of Saline Used [id number] -Bleeding Controlled with Pressure Pressure -Treatment Response Procedure Procedure Tolerated Well Tolerated Well -Offloading No No -Debridement - Subq, 1st 20sq cm No No No -Apply Skin Sub - 1st 25 sq cm - Legs 1 1 1 -Epicord (per sq cm) 6 6 6 Pain Scale: 0-10 Numeric Is Patient Pain Free? Yes Yes Yes - Nurse 3 - General Ulcer D/C NN Start: 12/24/22 08:41 Freq: Status: Active Protocol: Activity Type Activity Date Activity User E-sign Co-sign Detail Recorded Client Recorded Date Recorded By Document 12/24/22 09:48 [id number] 12/24/22 09:48 RB Document 12/31/22 09:25 [facility] Desktop 12/31/22 09:25 [facility] Document 01/07/23 09:26 Desktop 01/07/23 09:28 12/24/22 12/31/22 01/07/23 09:48 09:25 09:26 Wound Care Center Nurse 3 #1- L axilla/rib -Ulcer Cleansing Not Cleansed -Foul Odor after Cleansing No -Primary Dressing Applied Mepilex Border Mepilex Border Aquacel Extra, Mepilex Border -Other Dressing epicord -Aquacel Extra 1 -Mepilex Border 1 1 1 Treatment Response Procedure Procedure Tolerated Well Tolerated Well Pain Scale: 0-10 Numeric Is Patient Pain Free? Yes Yes Yes Teaching: Wound Center Dressing Your Wound -Person Taught Patient -Teaching Method Discussion, Demonstration -Response to teaching Verbalize understanding - Visit Discharge Discharge Condition Stable Stable Stable Ambulatory Status Ambulatory Ambulatory Ambulatory Transportation Private Auto Private Auto Private Auto Accompanied by Medication Reconcilliation completed & No No provided to patient/care provider Clinical Summary of Care Provided Yes Yes Assessment/Plan Assessment/Plan (1) Nonhealing surgical wound: CODE(S): T81.89XA - Other complications of procedures, not elsewhere classified, initial encounter QUALIFIERS: Encounter type: initial encounter Qualified Code(s): T81.89XA - Other complications of procedures, not elsewhere classified, initial encounter (2) Dehiscence of surgical wound: CODE(S): T81.31XA - Disruption of external operation (surgical) wound, not elsewhere classified, initial encounter QUALIFIERS: Encounter type: initial encounter Qualified Code(s): T81.31XA - Disruption of external operation (surgical) wound, not elsewhere classified, initial encounter (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 Improving. 3rd application of Epicord done today using 100% of product. Moistened with saline, Covered with adaptic touch and secured with steristrips. Aquacel extra over top to help with drainage. Leave in place x 1 week. Optimal dietary protein, Vitamin C, D and Zinc recommended. Patient and spouse voiced understanding. Continue other chronic wound care plan. HBO discussed however patient has significant claustrophobia. Their questions were answered and they were advised to let us know if they have any further questions or concerns.
== END 2023-01-09 23:59 | disposition home or self-care (01) ==
LOC: WC 08:45
PROVIDERS: PCP Family Medicine; Referring Provider Family Medicine; Visit Provider Internal Medicine
DX: T81.31XA Disruption of external operation (surgical) wound, not elsewhere classified, initial encounter (principal); C49.3 Malignant neoplasm of connective and soft tissue of thorax; J42 Unspecified chronic bronchitis; N18.30 Chronic kidney disease, stage 3 unspecified; I12.9 Hypertensive chronic kidney disease with stage 1 through stage 4 chronic kidney disease, or unspecified chronic kidney disease; I25.10 Atherosclerotic heart disease of native coronary artery without angina pectoris; E78.5 Hyperlipidemia, unspecified; E03.9 Hypothyroidism, unspecified; M10.9 Gout, unspecified; Z79.82 Long term (current) use of aspirin; Z79.890 Hormone replacement therapy; Z79.899 Other long term (current) drug therapy; Z87.891 Personal history of nicotine dependence
CPT/HCPCS: 11042; 15271; Q4187

== ENCOUNTER → 2023-01-19 | Outpatient (CLI) | payer MEDICARE, OTHER, SELFPAY ==
--- NOTE | 2023-01-21 09:09 | STRESSREP ---
Stress Test Report Date: 01/19/2023 Procedure: Pharmacologic stress nuclear imaging study Indications: Coronary artery disease Consent: Per the patient Procedure: The patient underwent pharmacologic (Regadenoson 0.4mg ) evaluation with a peak heart rate of 83 beats per minute (57%predicted maximal heart rate) and a peak blood pressure of 132/60 mmHg. The baseline ECG demonstrated sinus rhythm. The peak pharmacologic ECG demonstrated no ischemic changes. There were no cardiac dysrhythmias pretest, during pharmacologic infusion, or recovery. There was no complaint of chest discomfort during pharmacologic infusion or recovery. The patient was injected with 11.3 millicuries of technetium 99m Cardiolite and subsequently rest SPECT Cardiolite nuclear imaging was obtained in the horizontal long, vertical long, and short axis views. The patient underwent pharmacologic (Regadenoson) evaluation. The patient was injected with 34.8 millicuries of technetium 99m Cardiolite and subsequently stress SPECT Cardiolite nuclear imaging was obtained in the horizontal long, vertical long, and short axis views. A gated Cardiolite study at peak stress was obtained. The examination was stopped secondary to completion of protocol. Rest and stress SPECT Cardiolite nuclear imaging status post realignment, normalization, and attenuation correction demonstrate no fixed or reversible perfusion defects. There is end systolic thickening and brightening. The gated Cardiolite study demonstrates myocardial thickening and inward wall motion. The reported LVEF is 67%. Impression: 1. Pharmacologic (Regadenoson) evaluation 2. Peak pharmacologic ECG with no ischemic changes. 3. There were no cardiac dysrhythmias pretest, during pharmacologic infusion, or recovery. 5. Rest and stress SPECT Cardiolite nuclear imaging demonstrate relative uniform tracer uptake and myocardial perfusion appearing within normal limits. 6. The gated Cardiolite study reports an LVEF of 67%. This note was generated with [employer] software. It may contain incorrect words, spelling, and punctuation that were not noted in checking the note before signing.
== END | disposition home or self-care (01) ==
LOC: CVS 05:59
PROVIDERS: PCP Family Medicine; Referring Provider Physician Assistant Medical; Visit Provider Physician Assistant Medical
DX: I25.10 Atherosclerotic heart disease of native coronary artery without angina pectoris (principal); Z95.5 Presence of coronary angioplasty implant and graft; I10 Essential (primary) hypertension; E78.5 Hyperlipidemia, unspecified; R20.0 Anesthesia of skin; G62.9 Polyneuropathy, unspecified
CPT/HCPCS: 78452; 93017; A9500; A4216; J2785

== ENCOUNTER 2023-02-04 08:45 | Outpatient (RCR) | payer MEDICARE, OTHER, SELFPAY ==
[2023-01-10 00:14] VITALS: BP 125/47; PULSE 58; RESP 16; TEMP 35.4; BMI 27.2
[2023-01-14 08:36] VITALS: BP 121/30; PULSE 60; RESP 18; TEMP 35.9; BMI 27.2
--- NOTE | 2023-01-14 09:57 | PN.PCM_ITS ---
History of Present Illness Date of Service: 01/14/23 Chief Complaint: Non healing surgical wound History of Wound: Mr. Hutchison is a 77 yo who is a transfer of care to [place]. Had been seen by another provider at this facility for non healing surgical wound/wound breakdown. Has been on several courses of antibiotics as well as topical antibiotics. 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 Prior to this, had 25 radiation therapy treatment for tumor size reduction. Per patient and his , surgical margins were cancer free post surgery. Progress of Wound: No new concerns at this time. Has had 3 applications of FusionAds. Objective Data Objective Data Vital Signs: Vital Signs Temp Pulse Resp BP O2 Del Method 96.7 F L 60 18 121/30 H Room Air 01/14/23 08:36 01/14/23 08:36 01/14/23 08:36 01/14/23 08:36 01/14/23 08:36 Oxygen Delivery Method Room Air Weight: 169 lb Body Mass Index (BMI) 27.2 Charges/Coding Procedures Integumentary 150xxx-152xx: 99361 Skin sub graft trnk/arm/leg Physical Exam Const alert, oriented x3 and no apparent distress General Appearance: cooperative and comfortable HEENT normocephalic and head/scalp atraumatic Head and Scalp: normal to inspection Eyes EOMs intact bilaterally General Eye: normal appearance of both eyes Neck General: normal visual inspection Resp normal respiratory effort Effort and Inspection: able to speak in complete sentences Skin Wounds: wounds noted Neuro oriented x3, CN's II-XII intact bilaterally, moves all extremities and no focal motor deficits Psych mental status grossly normal, thought process normal, cooperative and affect normal Debridement Note Debridement Note Wound debrided: Left Axillary Area Type of Debridement: Excisional debridement Anesthesia Used: 5% Lidocaine Gel Depth: Down to and including healthy tissue and in the subcutaneous layer Percentage of wound debrided: 100 Instrument Used: 5mm curette Tissue Removed: Slough and devitalized tissue Severity: Fat Layer Exposed Amount of bleeding with debridement: Mild Bleeding Controlled with: Pressure Patient tolerated procedure: Patient tolerated procedure well Post-Debridement Measurements and Additional Note: Post-Debridement Measurements/Treatment MIHIR - Nurse 1 - General Ulcer Assessment Start: 01/14/23 08:36 Freq: Status: Active Protocol: ONELIA Activity Type Activity Date Activity User E-sign Co-sign Detail Recorded Client Recorded Date Recorded By Document 01/14/23 08:36 [facility] Desktop 01/14/23 08:42 [facility] 01/14/23 08:36 - Today's Visit Information Type of service Follow-up Visit (Physician/KNUCKLE BENDER ) Arrival Mode Ambulatory Transfer Assistance None Patient Identification Verified (Name & No ) Patient Requires Transmission-Based No Precautions Height and Weight Body Mass Index (BMI) 27.2 BMI Classification Overweight Vital Signs Temperature (97.8 F-99.1 F) 96.7 F L Temperature Source Temporal Pulse Rate (60-100) 60 Pulse Location Monitor Respiratory Rate (12-18) 18 Respiratory rate source Observation Oxygen Delivery Method Room Air Blood Pressure (90/60-120/80) 121/30 H Blood Pressure Mean (mm Hg) 60 Source Monitor Position Sitting History Since Last Visit- (Skip if this is Patient's initial visit) Have you changed medications since your No last visit? Any new allergies or adverse reactions No Had a fall/change in ADL's that may No increase risk of falls Signs or symptoms of abuse and/or No neglect since last visit Have you been in the hospital since your No last visit? Has dressing in place as prescribed Yes Has compression in place as prescribed N/A Has offloadiing in place as prescribed N/A Experienced any changes in pain level or No management Left Footwear Regular Shoe Right Footwear Regular Shoe Pain Scale: 0-10 Numeric Is Patient Pain Free? Yes - Nurse 1 - General Ulcer Measurement Start: 01/14/23 08:36 Freq: Status: Active Protocol: Activity Type Activity Date Activity User E-sign Co-sign Detail Recorded Client Recorded Date Recorded By Document 01/14/23 08:36 [facility] [employer] 01/14/23 08:42 [facility] 01/14/23 08:36 Wound Center Nurse 1 #1- L axilla/rib -Combined with other wound No -Current Size (cm) - Length 0.6 -Current Size (cm) - Width 2 -Current Size (cm) - Depth 0.7 -Total Square Cm 1.2 -Tunneling Yes -Tunneling Position (O'clock) 3 -Tunneling Distance (cm) 2.1 -Undermining/Tunneling No -Circular Undermining No -Exudate Amt Medium -Exudate Type Serosanguineous -Wound Margin Distinct, Outline Attached -Granulation Amt Medium (34-66%) -Granulation Quality [place] -Slough/Fibrin Yes -Necrosis Amt Medium (34-66%) -Necrotic Tissue Type Adherent Slough -Structure Exposed N/A -Texture (Sangeeta-wound Skin Appearance) Assessed, Scarring -Moisture (Sangeeta-wound Skin Appearance) Assessed -Color (Sangeeta-wound Skin Appearance) Assessed -Temperature (Sangeeta-wound Skin No Abnormality Appearance) (Pt Warm) -Tenderness on Palpation (Sangeeta-wound No Skin Appearance) -Ulcer Cleansing Wound Cleanser -Foul Odor after Cleansing No -Anesthetic Used 5% Lidocaine Gel WC - Nurse 2 - General Ulcer CM Notes Start: 01/14/23 08:36 Freq: Status: Active Protocol: Activity Type Activity Date Activity User E-sign Co-sign Detail Recorded Client Recorded Date Recorded By Document 01/14/23 08:55 [facility] Desktop 01/14/23 09:03 GM 01/14/23 08:55 Wound Center Nurse 2 -Time 08:55 -Correct Patient Yes -Correct Side, Site, Position Yes -Correct Procedure Yes -Procedure Performed Yes -Type of Procedure Debridement -Clinical Debridement Subcutaneous -Tissue Removed Subcutaneous -Post Debridement (cm) - Length 0.5 -Post Debridement (cm) - Width 2.0 -Post Debridement (cm) - Depth 0.7 -Total Square (Post) (cm) 1.00 -Area of Debridement (cm) - Length 0.5 -Area of Debridement (cm) - Width 2.0 -Total Square (Area) (cm) 1.00 -Tunneling No -Undermining/Tunneling No -Circular Undermining No -Wound/Ulcer Outcome Not Healed -Ulcer Cleansing Rinsed/ Irrigated with Saline -Foul Odor after Cleansing No -Bioengineered Tissue Yes -Type of Bioengineered Tissue Epicord -Expiration Date 08/11/27 -Product Lot Number [id number] -Percent Used 100 -Lot number of Saline Used [id number] -Bleeding Controlled with Pressure -Treatment Response Procedure Tolerated Well -Offloading No -Debridement - Subq, 1st 20sq cm No -Epicord (per sq cm) 6 Pain Scale: 0-10 Numeric Is Patient Pain Free? Yes Assessment/Plan Assessment/Plan (1) Nonhealing surgical wound: CODE(S): T81.89XA - Other complications of procedures, not elsewhere classified, initial encounter QUALIFIERS: Encounter type: initial encounter Qualified Code(s): T81.89XA - Other complications of procedures, not elsewhere classified, initial encounter (2) Dehiscence of surgical wound: CODE(S): T81.31XA - Disruption of external operation (surgical) wound, not elsewhere classified, initial encounter QUALIFIERS: Encounter type: initial encounter Qualified Code(s): T81.31XA - Disruption of external operation (surgical) wound, not elsewhere classified, initial encounter (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 Improving. 4th application of Epicord done today using 100% of product. Moistened with saline, Covered with wound veil and secured with steri strips. Aquacel extra over top to help with drainage. Leave in place x 1 week. Optimal dietary protein, Vitamin C, D and Zinc recommended. Patient and spouse voiced understanding. Continue other chronic wound care plan. HBO has been discussed however patient has significant claustrophobia. Their questions were answered and they were advised to let us know if they have any further questions or concerns.
[2023-01-21 08:32] VITALS: BP 155/52; PULSE 67; RESP 16; TEMP 35.5; BMI 27.2
--- NOTE | 2023-01-21 11:39 | PN.PCM_ITS ---
History of Present Illness Date of Service: 01/21/23 Chief Complaint: Non healing surgical wound History of Wound: Mr. Hutchison is a 77 yo who is a [place]. Had been seen by another provider at this facility for non healing surgical wound/wound breakdown. Has been on several courses of antibiotics as well as topical antibiotics. 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 Prior to this, had 25 radiation therapy treatment for tumor size reduction. Per patient and his , surgical margins were cancer free post surgery. Progress of Wound: No new concerns at this time. Has had 4 applications of [employer]. Objective Data Objective Data Vital Signs: Vital Signs Temp Pulse Resp BP O2 Del Method 96 F L 67 16 155/52 H Room Air 01/21/23 08:32 01/21/23 08:32 01/21/23 08:32 01/21/23 08:32 01/21/23 08:32 Oxygen Delivery Method Room Air Weight: 169 lb Body Mass Index (BMI) 27.2 Charges/Coding Procedures Integumentary 150xxx-152xx: 07652 Skin sub graft trnk/arm/leg Physical Exam Const alert, oriented x3 and no apparent distress General Appearance: cooperative and comfortable HEENT normocephalic and head/scalp atraumatic Head and Scalp: normal to inspection Eyes EOMs intact bilaterally General Eye: normal appearance of both eyes Neck General: normal visual inspection Resp normal respiratory effort Effort and Inspection: able to speak in complete sentences Skin Wounds: wounds noted Neuro oriented x3, CN's II-XII intact bilaterally, moves all extremities and no focal motor deficits Psych mental status grossly normal, thought process normal, cooperative and affect normal Debridement Note Debridement Note Wound debrided: Left Axillary Area Type of Debridement: Excisional debridement Anesthesia Used: 5% Lidocaine Gel Depth: Down to and including healthy tissue and in the subcutaneous layer Percentage of wound debrided: 100 Instrument Used: 5mm curette Tissue Removed: Slough and devitalized tissue Severity: Fat Layer Exposed Amount of bleeding with debridement: Mild Bleeding Controlled with: Pressure Patient tolerated procedure: Patient tolerated procedure well Post-Debridement Measurements and Additional Note: Post-Debridement Measurements/Treatment MIHIR - Nurse 1 - General Ulcer Assessment Start: 01/14/23 08:36 Freq: Status: Active Protocol: ONELIA Activity Type Activity Date Activity User E-sign Co-sign Detail Recorded Client Recorded Date Recorded By Document 01/14/23 08:36 [facility] Desktop 01/14/23 08:42 [facility] Document 01/21/23 08:32 JEANNETTE Desktop 01/21/23 08:34 01/14/23 01/21/23 08:36 08:32 WC - Today's Visit Information Type of service Follow-up Visit Follow-up Visit (Physician/CARD READER (Physician/CARD READER ) ) Arrival Mode Ambulatory Ambulatory Transfer Assistance None None Accompanied by Patient Identification Verified (Name & No Yes ) Patient Requires Transmission-Based No No Precautions Height and Weight Body Mass Index (BMI) 27.2 27.2 BMI Classification Overweight Overweight Vital Signs Temperature (97.8 F-99.1 F) 96.7 F L 96 F L Temperature Source Temporal Temporal Pulse Rate (60-100) 60 67 Pulse Location Monitor Monitor Respiratory Rate (12-18) 18 16 Respiratory rate source Observation Observation Oxygen Delivery Method Room Air Room Air Blood Pressure (90/60-120/80) 121/30 H 155/52 H Blood Pressure Mean (mm Hg) 60 86 Source Monitor Monitor Position Sitting Sitting Blood Pressure Location Left Arm History Since Last Visit- (Skip if this is Patient's initial visit) Have you changed medications since your No No last visit? Any new allergies or adverse reactions No No Had a fall/change in ADL's that may No No increase risk of falls Signs or symptoms of abuse and/or No No neglect since last visit Have you been in the hospital since your No No last visit? Has dressing in place as prescribed Yes Yes Has compression in place as prescribed N/A N/A Has offloadiing in place as prescribed N/A N/A Experienced any changes in pain level or No No management Left Footwear Regular Shoe Regular Shoe Right Footwear Regular Shoe Regular Shoe Pain Scale: 0-10 Numeric Is Patient Pain Free? Yes Yes - Nurse 1 - General Ulcer Measurement Start: 01/14/23 08:36 Freq: Status: Active Protocol: Activity Type Activity Date Activity User E-sign Co-sign Detail Recorded Client Recorded Date Recorded By Document 01/14/23 08:36 [employer] Desktop 01/14/23 08:42 [facility] Document 01/21/23 08:32 JEANNETTE Desktop 01/21/23 08:34 01/14/23 01/21/23 08:36 08:32 Wound Center Nurse 1 #1- L axilla/rib -Combined with other wound No No -Current Size (cm) - Length 0.6 0.4 -Current Size (cm) - Width 2 2 -Current Size (cm) - Depth 0.7 0.9 -Total Square Cm 1.2 0.8 -Photo Taken No -Epithelialization None Present -Tunneling Yes No -Tunneling Position (O'clock) 3 -Tunneling Distance (cm) 2.1 -Undermining/Tunneling No No -Circular Undermining No No -Exudate Amt Medium Medium -Exudate Type Serosanguineous Serosanguineous -Wound Margin Distinct, Distinct, Outline Outline Attached Attached -Granulation Amt Medium (34-66%) Small (1-33%) -Granulation Quality [place] Red -Slough/Fibrin Yes Yes -Necrosis Amt Medium (34-66%) Large (67-100%) -Necrotic Tissue Type Adherent Slough Adherent Slough -Structure Exposed N/A -Texture (Sangeeta-wound Skin Appearance) Assessed, Assessed Scarring -Moisture (Sangeeta-wound Skin Appearance) Assessed Assessed -Color (Sangeeta-wound Skin Appearance) Assessed Assessed -Temperature (Sangeeta-wound Skin No Abnormality No Abnormality Appearance) (Pt Warm) (Pt Warm) -Tenderness on Palpation (Sangeeta-wound No No Skin Appearance) -Ulcer Cleansing Wound Cleanser Soap and Water -Foul Odor after Cleansing No No -Anesthetic Used 5% Lidocaine 5% Lidocaine Gel Gel WC - Nurse 2 - General Ulcer CM Notes Start: 01/14/23 08:36 Freq: Status: Active Protocol: Activity Type Activity Date Activity User E-sign Co-sign Detail Recorded Client Recorded Date Recorded By Document 01/14/23 08:55 GM Desktop 01/14/23 09:03 GM Edit Result 01/14/23 08:55 GM (1) [id number] 01/15/23 09:51 PL Document 01/21/23 09:14 GM Desktop 01/21/23 09:25 GM (1) #1- L axilla/rib - Apply Skin Sub - 1st 25 sq cm - Legs => 1 01/14/23 01/21/23 08:55 09:14 Wound Center Nurse 2 #1- L axilla/rib -Time 08:55 09:14 -Correct Patient Yes Yes -Correct Side, Site, Position Yes Yes -Correct Procedure Yes Yes -Procedure Performed Yes Yes -Type of Procedure Debridement Debridement -Clinical Debridement Subcutaneous Subcutaneous -Tissue Removed Subcutaneous Subcutaneous -Post Debridement (cm) - Length 0.5 0.3 -Post Debridement (cm) - Width 2.0 1.8 -Post Debridement (cm) - Depth 0.7 1.1 -Total Square (Post) (cm) 1.00 0.54 -Area of Debridement (cm) - Length 0.5 0.3 -Area of Debridement (cm) - Width 2.0 1.8 -Total Square (Area) (cm) 1.00 0.54 -Tunneling No No -Undermining/Tunneling No No -Circular Undermining No No -Wound/Ulcer Outcome Not Healed Not Healed -Ulcer Cleansing Rinsed/ Irrigated with Saline -Foul Odor after Cleansing No -Bioengineered Tissue Yes -Type of Bioengineered Tissue Epicord Epifix -Expiration Date 08/11/27 09/11/27 -Product Lot Number [id number] -Percent Used 100 100 -Lot number of Saline Used [id number] -Bleeding Controlled with Pressure Pressure -Treatment Response Procedure Procedure Tolerated Well Tolerated Well -Offloading No -Debridement - Subq, 1st 20sq cm No No -Apply Skin Sub - 1st 25 sq cm - Legs 1 -Epicord (per sq cm) 6 -Epifix (per sq cm) 4 Pain Scale: 0-10 Numeric Is Patient Pain Free? Yes Yes - Nurse 3 - General Ulcer D/C NN Start: 01/14/23 08:36 Freq: Status: Active Protocol: Activity Type Activity Date Activity User E-sign Co-sign Detail Recorded Client Recorded Date Recorded By Document 01/21/23 09:34 [facility] Desktop 01/21/23 09:35 [facility] 01/21/23 09:34 Wound Care Center Nurse 3 #1- L axilla/rib -Primary Dressing Applied Mepilex Border -Other Dressing epifix, aquacel -Mepilex Border 1 Treatment Response Procedure Tolerated Well Pain Scale: 0-10 Numeric Is Patient Pain Free? Yes - Visit Discharge Discharge Condition Stable Ambulatory Status Ambulatory Transportation Private Auto Accompanied by Assessment/Plan Assessment/Plan (1) Nonhealing surgical wound: CODE(S): T81.89XA - Other complications of procedures, not elsewhere classified, initial encounter QUALIFIERS: Encounter type: initial encounter Qualified Code(s): T81.89XA - Other complications of procedures, not elsewhere classified, initial encounter (2) Dehiscence of surgical wound: CODE(S): T81.31XA - Disruption of external operation (surgical) wound, not elsewhere classified, initial encounter QUALIFIERS: Encounter type: initial encounter Qualified Code(s): T81.31XA - Disruption of external operation (surgical) wound, not elsewhere classified, initial encounter (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 Improving. 5th application of skin substitute (EpiFix today) done today using 100% of product. Moistened with saline, Covered with Adaptic touch and secured with steri strips. Aquacel extra over top to help with drainage. Leave in place x 1 week. Optimal dietary protein, Vitamin C, D and Zinc recommended. Patient and spouse voiced understanding. Continue other chronic wound care plan. HBO has been discussed however patient has significant claustrophobia. Their questions were answered and they were advised to let us know if they have any further questions or concerns.
[2023-01-28 08:23] VITALS: BP 126/32; PULSE 61; RESP 16; TEMP 35.8; BMI 27.2
--- NOTE | 2023-01-28 09:12 | PCM.WC.PN ---
History of Present Illness Date of Service: 01/28/23 Chief Complaint: Non healing surgical wound History of Wound: Mr. Hutchison is a 77 yo who is a transfer of care to [place]. Had been seen by another provider at this facility for non healing surgical wound/wound breakdown. Has been on several courses of antibiotics as well as topical antibiotics. 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 Prior to this, had 25 radiation therapy treatment for tumor size reduction. Per patient and his , surgical margins were cancer free post surgery. Progress of Wound: No new concerns at this time. Has had 5 applications of [employer]. Objective Data Objective Data Vital Signs: Vital Signs Temp Pulse Resp BP O2 Del Method 96.5 F L 61 16 126/32 H Room Air 01/28/23 08:23 01/28/23 08:23 01/28/23 08:23 01/28/23 08:23 01/28/23 08:23 Oxygen Delivery Method Room Air Weight: 169 lb Body Mass Index (BMI) 27.2 Charges/Coding Procedures Integumentary 150xxx-152xx: 77539 Skin sub graft trnk/arm/leg Physical Exam Const alert, oriented x3 and no apparent distress General Appearance: cooperative and comfortable HEENT normocephalic and head/scalp atraumatic Head and Scalp: normal to inspection Eyes EOMs intact bilaterally General Eye: normal appearance of both eyes Neck General: normal visual inspection Resp normal respiratory effort Effort and Inspection: able to speak in complete sentences Skin Wounds: wounds noted Neuro oriented x3, CN's II-XII intact bilaterally, moves all extremities and no focal motor deficits Psych mental status grossly normal, thought process normal, cooperative and affect normal Debridement Note Debridement Note Wound debrided: Left Axillary Area Type of Debridement: Excisional debridement Anesthesia Used: 5% Lidocaine Gel Depth: Down to and including healthy tissue and in the subcutaneous layer Percentage of wound debrided: 100 Instrument Used: 5mm curette Tissue Removed: Slough and devitalized tissue Severity: Fat Layer Exposed Amount of bleeding with debridement: Mild Bleeding Controlled with: Pressure Patient tolerated procedure: Patient tolerated procedure well Post-Debridement Measurements and Additional Note: Post-Debridement Measurements/Treatment MIHIR - Nurse 1 - General Ulcer Assessment Start: 01/14/23 08:36 Freq: Status: Active Protocol: ONELIA Activity Type Activity Date Activity User E-sign Co-sign Detail Recorded Client Recorded Date Recorded By Document 01/14/23 08:36 [facility] Desktop 01/14/23 08:42 BM Document 01/21/23 08:32 Desktop 01/21/23 08:34 Document 01/28/23 08:23 [facility] Desktop 01/28/23 08:30 BMF 01/14/23 01/21/23 01/28/23 08:36 08:32 08:23 WC - Today's Visit Information Type of service Follow-up Visit Follow-up Visit Follow-up Visit (Physician/BUSINESS TECHNOLOGY ANALYST (Physician/BUSINESS TECHNOLOGY ANALYST (Physician/BUSINESS TECHNOLOGY ANALYST ) ) ) Arrival Mode Ambulatory Ambulatory Ambulatory Transfer Assistance None None None Accompanied by Patient Identification Verified (Name & No Yes Yes ) Patient Requires Transmission-Based No No No Precautions Height and Weight Body Mass Index (BMI) 27.2 27.2 27.2 BMI Classification Overweight Overweight Overweight Vital Signs Temperature (97.8 F-99.1 F) 96.7 F L 96 F L 96.5 F L Temperature Source Temporal Temporal Temporal Pulse Rate (60-100) 60 67 61 Pulse Location Monitor Monitor Monitor Respiratory Rate (12-18) 18 16 16 Respiratory rate source Observation Observation Observation Oxygen Delivery Method Room Air Room Air Room Air Blood Pressure (90/60-120/80) 121/30 H 155/52 H 126/32 H Blood Pressure Mean (mm Hg) 60 86 63 Source Monitor Monitor Monitor Position Sitting Sitting Sitting Blood Pressure Location Left Arm Left Arm History Since Last Visit- (Skip if this is Patient's initial visit) Have you changed medications since your No No No last visit? Any new allergies or adverse reactions No No No Had a fall/change in ADL's that may No No No increase risk of falls Signs or symptoms of abuse and/or No No No neglect since last visit Have you been in the hospital since your No No No last visit? Has dressing in place as prescribed Yes Yes Yes Has compression in place as prescribed N/A N/A N/A Has offloadiing in place as prescribed N/A N/A N/A Experienced any changes in pain level or No No No management Left Footwear Regular Shoe Regular Shoe Regular Shoe Right Footwear Regular Shoe Regular Shoe Regular Shoe Pain Scale: 0-10 Numeric Is Patient Pain Free? Yes Yes Yes - Nurse 1 - General Ulcer Measurement Start: 01/14/23 08:36 Freq: Status: Active Protocol: Activity Type Activity Date Activity User E-sign Co-sign Detail Recorded Client Recorded Date Recorded By Document 01/14/23 08:36 [facility] Desktop 01/14/23 08:42 [facility] Document 01/21/23 08:32 Desktop 01/21/23 08:34 Document 01/28/23 08:23 [facility] Desktop 01/28/23 08:30 F 01/14/23 01/21/23 01/28/23 08:36 08:32 08:23 Wound Center Nurse 1 #1- L axilla/rib -Combined with other wound No No No -Current Size (cm) - Length 0.6 0.4 0.5 -Current Size (cm) - Width 2 2 2 -Current Size (cm) - Depth 0.7 0.9 0.8 -Total Square Cm 1.2 0.8 1.0 -Photo Taken No -Epithelialization None Present -Tunneling Yes No Yes -Tunneling Position (O'clock) 3 9 -Tunneling Distance (cm) 2.1 1.1 -Tunneling Position #2 (O'clock) 3 -Tunneling Distance #2 (cm) 1.5 -Undermining/Tunneling No No No -Circular Undermining No No No -Exudate Amt Medium Medium Medium -Exudate Type Serosanguineous Serosanguineous Serosanguineous -Wound Margin Distinct, Distinct, Distinct, Outline Outline Outline Attached Attached Attached -Granulation Amt Medium (34-66%) Small (1-33%) None Present (0 %) -Granulation Quality [place] Red -Slough/Fibrin Yes Yes Yes -Necrosis Amt Medium (34-66%) Large (67-100%) Large (67-100%) -Necrotic Tissue Type Adherent Slough Adherent Slough Adherent Slough -Structure Exposed N/A -Texture (Sangeeta-wound Skin Appearance) Assessed, Assessed Assessed, Scarring Scarring -Moisture (Sangeeta-wound Skin Appearance) Assessed Assessed Assessed -Color (Sangeeta-wound Skin Appearance) Assessed Assessed Assessed -Temperature (Sangeeta-wound Skin No Abnormality No Abnormality No Abnormality Appearance) (Pt Warm) (Pt Warm) (Pt Warm) -Tenderness on Palpation (Sangeeta-wound No No No Skin Appearance) -Ulcer Cleansing Wound Cleanser Soap and Water Soap and Water -Foul Odor after Cleansing No No No -Anesthetic Used 5% Lidocaine 5% Lidocaine 5% Lidocaine Gel Gel Gel WC - Nurse 2 - General Ulcer CM Notes Start: 01/14/23 08:36 Freq: Status: Active Protocol: Activity Type Activity Date Activity User E-sign Co-sign Detail Recorded Client Recorded Date Recorded By Document 01/14/23 08:55 GM Desktop 01/14/23 09:03 GM Edit Result 01/14/23 08:55 GM (1) [id number] 01/15/23 09:51 PL Document 01/21/23 09:14 GM Desktop 01/21/23 09:25 GM Edit Result 01/21/23 09:14 GM (2) [id number] 01/22/23 15:30 PL Document 01/28/23 08:46 JF Laptop 01/28/23 08:48 JF (1) #1- L axilla/rib - Apply Skin Sub - 1st 25 sq cm - Legs => 1 (2) #1- L axilla/rib - Apply Skin Sub - 1st 25 sq cm - Legs => 1 01/14/23 01/21/23 01/28/23 08:55 09:14 08:46 Wound Center Nurse 2 #1- L axilla/rib -Time 08:55 09:14 08:46 -Correct Patient Yes Yes Yes -Correct Side, Site, Position Yes Yes Yes -Correct Procedure Yes Yes Yes -Procedure Performed Yes Yes Yes -Type of Procedure Debridement Debridement Debridement -Clinical Debridement Subcutaneous Subcutaneous Subcutaneous -Tissue Removed Subcutaneous Subcutaneous Subcutaneous -Post Debridement (cm) - Length 0.5 0.3 0.4 -Post Debridement (cm) - Width 2.0 1.8 1.7 -Post Debridement (cm) - Depth 0.7 1.1 0.7 -Total Square (Post) (cm) 1.00 0.54 0.68 -Area of Debridement (cm) - Length 0.5 0.3 0.4 -Area of Debridement (cm) - Width 2.0 1.8 1.7 -Total Square (Area) (cm) 1.00 0.54 0.68 -Tunneling No No No -Undermining/Tunneling No No No -Circular Undermining No No No -Wound/Ulcer Outcome Not Healed Not Healed Not Healed -Ulcer Cleansing Rinsed/ Rinsed/ Irrigated with Irrigated with Saline Saline -Foul Odor after Cleansing No No -Bioengineered Tissue Yes Yes -Type of Bioengineered Tissue Epicord Epifix Epicord -Expiration Date 08/11/27 09/11/27 09/11/27 -Product Lot Number [id number] -Percent Used 100 100 100 -Lot number of Saline Used [id number] -Bleeding Controlled with Pressure Pressure Pressure -Treatment Response Procedure Procedure Procedure Tolerated Well Tolerated Well Tolerated Well -Offloading No No -Debridement - Subq, 1st 20sq cm No No No -Apply Skin Sub - 1st 25 sq cm - Legs 1 1 1 -Epicord (per sq cm) 6 6 -Epifix (per sq cm) 4 Pain Scale: 0-10 Numeric Is Patient Pain Free? Yes Yes Yes - Nurse 3 - General Ulcer D/C NN Start: 01/14/23 08:36 Freq: Status: Active Protocol: Activity Type Activity Date Activity User E-sign Co-sign Detail Recorded Client Recorded Date Recorded By Document 01/21/23 09:34 [facility] Desktop 01/21/23 09:35 [facility] Document 01/28/23 08:51 Laptop 01/28/23 08:51 01/21/23 01/28/23 09:34 08:51 Wound Care Center Nurse 3 #1- L axilla/rib -Ulcer Cleansing Rinsed/ Irrigated with Saline -Foul Odor after Cleansing No -Primary Dressing Applied Mepilex Border Mepilex Border -Other Dressing epifix, aquacel -Mepilex Border 1 1 Treatment Response Procedure Tolerated Well Pain Scale: 0-10 Numeric Is Patient Pain Free? Yes Yes - Visit Discharge Discharge Condition Stable Stable Ambulatory Status Ambulatory Ambulatory Transportation Private Auto Private Auto Accompanied by Medication Reconcilliation completed & Yes provided to patient/care provider Clinical Summary of Care Provided Yes Assessment/Plan Assessment/Plan (1) Nonhealing surgical wound: CODE(S): T81.89XA - Other complications of procedures, not elsewhere classified, initial encounter QUALIFIERS: Encounter type: initial encounter Qualified Code(s): T81.89XA - Other complications of procedures, not elsewhere classified, initial encounter (2) Dehiscence of surgical wound: CODE(S): T81.31XA - Disruption of external operation (surgical) wound, not elsewhere classified, initial encounter QUALIFIERS: Encounter type: initial encounter Qualified Code(s): T81.31XA - Disruption of external operation (surgical) wound, not elsewhere classified, initial encounter (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 Improving. 6th application of skin substitute (Epicord today) done today using 100% of product. Moistened with saline, Covered with Adaptic touch and secured with steri strips. Aquacel extra over top to help with drainage. Leave in place x 1 week. Optimal dietary protein, Vitamin C, D and Zinc recommended. Patient and spouse voiced understanding. Continue other chronic wound care plan. HBO has been discussed however patient has significant claustrophobia. Their questions were answered and they were advised to let us know if they have any further questions or concerns.
[2023-02-04 08:40] VITALS: BP 134/55; PULSE 70; RESP 16; TEMP 35.7; BMI 27.2
--- NOTE | 2023-02-04 12:29 | PCM.WC.PN ---
History of Present Illness Date of Service: 02/04/23 Chief Complaint: Non healing surgical wound History of Wound: Mr. Hutchison is a 77 yo who [place] Had been seen by another provider at this facility for non healing surgical wound/wound breakdown. Has been on several courses of antibiotics as well as topical antibiotics. 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 Prior to this, had 25 radiation therapy treatment for tumor size reduction. Per patient and his , surgical margins were cancer free post surgery. Progress of Wound: No new concerns at this time. Has had 6 applications of Grab Mediaord/Epifix. Objective Data Objective Data Vital Signs: Vital Signs Temp Pulse Resp BP O2 Del Method 96.3 F L 70 16 134/55 H Room Air 02/04/23 08:40 02/04/23 08:40 02/04/23 08:40 02/04/23 08:40 02/04/23 08:40 Oxygen Delivery Method Room Air Weight: 169 lb Body Mass Index (BMI) 27.2 Charges/Coding Procedures Integumentary 150xxx-152xx: [id number] Skin sub graft trnk/arm/leg Physical Exam Const alert, oriented x3 and no apparent distress General Appearance: cooperative and comfortable HEENT normocephalic and head/scalp atraumatic Head and Scalp: normal to inspection Eyes EOMs intact bilaterally General Eye: normal appearance of both eyes Neck General: normal visual inspection Resp normal respiratory effort Effort and Inspection: able to speak in complete sentences Skin Wounds: wounds noted Neuro oriented x3, CN's II-XII intact bilaterally, moves all extremities and no focal motor deficits Psych mental status grossly normal, thought process normal, cooperative and affect normal Debridement Note Debridement Note Wound debrided: Left Axillary Area Type of Debridement: Excisional debridement Anesthesia Used: 5% Lidocaine Gel Depth: Down to and including healthy tissue and in the subcutaneous layer Percentage of wound debrided: 100 Instrument Used: 5mm curette Tissue Removed: Slough and devitalized tissue Severity: Fat Layer Exposed Amount of bleeding with debridement: Mild Bleeding Controlled with: Pressure Patient tolerated procedure: Patient tolerated procedure well Post-Debridement Measurements and Additional Note: Post-Debridement Measurements/Treatment MIHIR - Nurse 1 - General Ulcer Assessment Start: 01/14/23 08:36 Freq: Status: Active Protocol: ONELIA Activity Type Activity Date Activity User E-sign Co-sign Detail Recorded Client Recorded Date Recorded By Document 01/14/23 08:36 BMF Desktop 01/14/23 08:42 BMF Document 01/21/23 08:32 JF Desktop 01/21/23 08:34 JF Document 01/28/23 08:23 BMF Desktop 01/28/23 08:30 BMF Document 02/04/23 08:40 BM Desktop 02/04/23 08:49 F 01/14/23 01/21/23 01/28/23 08:36 08:32 08:23 WC - Today's Visit Information Type of service Follow-up Visit Follow-up Visit Follow-up Visit ([facility] (Physician/[facility] [employer] [facility] (Physician/[facility] [employer] [facility] ) ) ) Arrival Mode Ambulatory Ambulatory Ambulatory Transfer Assistance None None None Accompanied by Patient Identification Verified (Name & No Yes Yes ) Patient Requires Transmission-Based No No No Precautions Height and Weight Body Mass Index (BMI) 27.2 27.2 27.2 BMI Classification Overweight Overweight Overweight Vital Signs Temperature (97.8 F-99.1 F) 96.7 F L 96 F L 96.5 F L Temperature Source Temporal Temporal Temporal Pulse Rate (60-100) 60 67 61 Pulse Location Monitor Monitor Monitor Respiratory Rate (12-18) 18 16 16 Respiratory rate source Observation Observation Observation Oxygen Delivery Method Room Air Room Air Room Air Blood Pressure (90/60-120/80) 121/30 H 155/52 H 126/32 H Blood Pressure Mean (mm Hg) 60 86 63 Source Monitor Monitor Monitor Position Sitting Sitting Sitting Blood Pressure Location Left Arm Left Arm History Since Last Visit- (Skip if this is Patient's initial visit) Have you changed medications since your No No No last visit? Any new allergies or adverse reactions No No No Had a fall/change in ADL's that may No No No increase risk of falls Signs or symptoms of abuse and/or No No No neglect since last visit Have you been in the hospital since your No No No last visit? Has dressing in place as prescribed Yes Yes Yes Has compression in place as prescribed N/A N/A N/A Has offloadiing in place as prescribed N/A N/A N/A Experienced any changes in pain level or No No No management Left Footwear Regular Shoe Regular Shoe Regular Shoe Right Footwear Regular Shoe Regular Shoe Regular Shoe Pain Scale: 0-10 Numeric Is Patient Pain Free? Yes Yes Yes 02/04/23 08:40 WC - Today's Visit Information Type of service Follow-up Visit (Physician/[facility] [employer] [facility] ) Arrival Mode Ambulatory Transfer Assistance None Accompanied by Patient Identification Verified (Name & Yes ) Patient Requires Transmission-Based No Precautions Height and Weight Body Mass Index (BMI) 27.2 BMI Classification Overweight Vital Signs Temperature (97.8 F-99.1 F) 96.3 F L Temperature Source Temporal Pulse Rate (60-100) 70 Pulse Location Monitor Respiratory Rate (12-18) 16 Respiratory rate source Observation Oxygen Delivery Method Room Air Blood Pressure (90/60-120/80) 134/55 H Blood Pressure Mean (mm Hg) 81 Source Monitor Position Sitting Blood Pressure Location Left Arm History Since Last Visit- (Skip if this is Patient's initial visit) Have you changed medications since your No last visit? Any new allergies or adverse reactions No Had a fall/change in ADL's that may No increase risk of falls Signs or symptoms of abuse and/or No neglect since last visit Have you been in the hospital since your No last visit? Has dressing in place as prescribed Yes Has compression in place as prescribed N/A Has offloadiing in place as prescribed N/A Experienced any changes in pain level or No management Left Footwear Regular Shoe Right Footwear Regular Shoe Pain Scale: 0-10 Numeric Is Patient Pain Free? Yes - Nurse 1 - General Ulcer Measurement Start: 01/14/23 08:36 Freq: Status: Active Protocol: Activity Type Activity Date Activity User E-sign Co-sign Detail Recorded Client Recorded Date Recorded By Document 01/14/23 08:36 [facility] Desktop 01/14/23 08:42 [facility] Document 01/21/23 08:32 Desktop 01/21/23 08:34 Document 01/28/23 08:23 [facility] Desktop 01/28/23 08:30 [facility] Document 02/04/23 08:40 [facility] Desktop 02/04/23 08:49 [facility] 01/14/23 01/21/23 01/28/23 08:36 08:32 08:23 Wound Center Nurse 1 #2- L LAT RIB/AXILLA -Combined with other wound -Current Size (cm) - Length -Current Size (cm) - Width -Current Size (cm) - Depth -Total Square Cm -Date of Last Picture (Recall this field) -Photo Taken -Epithelialization -Tunneling -Undermining/Tunneling -Circular Undermining -Exudate Amt -Exudate Type -Wound Margin -Granulation Amt -Granulation Quality -Slough/Fibrin -Necrosis Amt -Necrotic Tissue Type -Texture (Sange[place]-wound Skin Appearance) -Moisture ([place]-wound Skin Appearance) -Color ([place]-wound Skin Appearance) -Temperature ([place]-wound Skin Appearance) -Tenderness on Palpation (Sangeeta-wound Skin Appearance) -Ulcer Cleansing -Foul Odor after Cleansing -Anesthetic Used #1- L axilla/rib -Combined with other wound No No No -Current Size (cm) - Length 0.6 0.4 0.5 -Current Size (cm) - Width 2 2 2 -Current Size (cm) - Depth 0.7 0.9 0.8 -Total Square Cm 1.2 0.8 1.0 -Date of Last Picture (Recall this field) -Photo Taken No -Epithelialization None Present -Tunneling Yes No Yes -Tunneling Position (O'clock) 3 9 -Tunneling Distance (cm) 2.1 1.1 -Tunneling Position #2 (O'clock) 3 -Tunneling Distance #2 (cm) 1.5 -Undermining/Tunneling No No No -Circular Undermining No No No -Exudate Amt Medium Medium Medium -Exudate Type Serosanguineous Serosanguineous Serosanguineous -Wound Margin Distinct, Distinct, Distinct, Outline Outline Outline Attached Attached Attached -Granulation Amt Medium (34-66%) Small (1-33%) None Present (0 %) -Granulation Quality [place] Red -Slough/Fibrin Yes Yes Yes -Necrosis Amt Medium (34-66%) Large (67-100%) Large (67-100%) -Necrotic Tissue Type Adherent Slough Adherent Slough Adherent Slough -Structure Exposed N/A -Texture (Sangeeta-wound Skin Appearance) Assessed, Assessed Assessed, Scarring Scarring -Moisture ([place]-wound Skin Appearance) Assessed Assessed Assessed -Color ([place]-wound Skin Appearance) Assessed Assessed Assessed -Temperature ([place]-wound Skin No Abnormality No Abnormality No Abnormality Appearance) (Pt Warm) (Pt Warm) (Pt Warm) -Tenderness on Palpation ([place]-wound No No No Skin Appearance) -Ulcer Cleansing Wound Cleanser Soap and Water Soap and Water -Foul Odor after Cleansing No No No -Anesthetic Used 5% Lidocaine 5% Lidocaine 5% Lidocaine Gel Gel Gel 02/04/23 08:40 Wound Center Nurse 1 #2- L LAT RIB/AXILLA -Combined with other wound No -Current Size (cm) - Length 0.3 -Current Size (cm) - Width 0.6 -Current Size (cm) - Depth 0.4 -Total Square Cm 0.18 -Date of Last Picture (Recall this 02/04/23 field) -Photo Taken Yes -Epithelialization None Present -Tunneling No -Undermining/Tunneling No -Circular Undermining No -Exudate Amt Small -Exudate Type Serosanguineous -Wound Margin Distinct, Outline Attached -Granulation Amt Small (1-33%) -Granulation Quality Red -Slough/Fibrin Yes -Necrosis Amt Large (67-100%) -Necrotic Tissue Type Adherent Slough -Texture (Sangeeta-wound Skin Appearance) Assessed, Scarring -Moisture ([place]-wound Skin Appearance) Assessed -Color ([place]-wound Skin Appearance) Assessed, Erythema -Temperature ([place]-wound Skin No Abnormality Appearance) (Pt Warm) -Tenderness on Palpation ([place]ange[place]-wound No Skin Appearance) -Ulcer Cleansing Soap and Water -Foul Odor after Cleansing No -Anesthetic Used 5% Lidocaine Gel #1- L axilla/rib -Combined with other wound No -Current Size (cm) - Length 0.5 -Current Size (cm) - Width 1.9 -Current Size (cm) - Depth 0.5 -Total Square Cm 0.95 -Date of Last Picture (Recall this 02/04/23 field) -Photo Taken Yes -Epithelialization None Present -Tunneling Yes -Tunneling Position (O'clock) 3 -Tunneling Distance (cm) 1.3 -Tunneling Position #2 (O'clock) -Tunneling Distance #2 (cm) -Undermining/Tunneling No -Circular Undermining No -Exudate Amt Medium -Exudate Type Serosanguineous -Wound Margin Distinct, Outline Attached -Granulation Amt None Present (0 %) -Granulation Quality -Slough/Fibrin Yes -Necrosis Amt Large (67-100%) -Necrotic Tissue Type Adherent Slough -Structure Exposed -Texture (Sangeeta-wound Skin Appearance) Assessed, Scarring -Moisture ([place]ange[place]-wound Skin Appearance) Assessed -Color ([place]-wound Skin Appearance) Assessed -Temperature ([place]-wound Skin No Abnormality Appearance) (Pt Warm) -Tenderness on Palpation (Sangeeta-wound No Skin Appearance) -Ulcer Cleansing Soap and Water -Foul Odor after Cleansing No -Anesthetic Used 5% Lidocaine Gel WC - Nurse 2 - General Ulcer CM Notes Start: 01/14/23 08:36 Freq: Status: Active Protocol: Activity Type Activity Date Activity User E-sign Co-sign Detail Recorded Client Recorded Date Recorded By Document 01/14/23 08:55 GM Desktop 01/14/23 09:03 GM Edit Result 01/14/23 08:55 GM (1) [id number] 01/15/23 09:51 PL Document 01/21/23 09:14 GM Desktop 01/21/23 09:25 GM Edit Result 01/21/23 09:14 GM (2) [id number] 01/22/23 15:30 PL Document 01/28/23 08:46 JF Laptop 01/28/23 08:48 JF Document 02/04/23 09:25 GM Desktop 02/04/23 09:39 GM (1) #1- L axilla/rib - Apply Skin Sub - 1st 25 sq cm - Legs => 1 (2) #1- L axilla/rib - Apply Skin Sub - 1st 25 sq cm - Legs => 1 01/14/23 01/21/23 01/28/23 08:55 09:14 08:46 Wound Center Nurse 2 #2- L LAT RIB/AXILLA -Time -Tunneling -Undermining/Tunneling -Circular Undermining -Foul Odor after Cleansing -Expiration Date -Product Lot Number -Percent Used -Lot number of Saline Used -Bleeding Controlled with -Debridement - Subq, 1st 20sq cm #1- L axilla/rib -Time 08:55 09:14 08:46 -Correct Patient Yes Yes Yes -Correct Side, Site, Position Yes Yes Yes -Correct Procedure Yes Yes Yes -Procedure Performed Yes Yes Yes -Type of Procedure Debridement Debridement Debridement -Clinical Debridement Subcutaneous Subcutaneous Subcutaneous -Tissue Removed Subcutaneous Subcutaneous Subcutaneous -Post Debridement (cm) - Length 0.5 0.3 0.4 -Post Debridement (cm) - Width 2.0 1.8 1.7 -Post Debridement (cm) - Depth 0.7 1.1 0.7 -Total Square (Post) (cm) 1.00 0.54 0.68 -Area of Debridement (cm) - Length 0.5 0.3 0.4 -Area of Debridement (cm) - Width 2.0 1.8 1.7 -Total Square (Area) (cm) 1.00 0.54 0.68 -Tunneling No No No -Undermining/Tunneling No No No -Circular Undermining No No No -Wound/Ulcer Outcome Not Healed Not Healed Not Healed -Ulcer Cleansing Rinsed/ Rinsed/ Irrigated with Irrigated with Saline Saline -Foul Odor after Cleansing No No -Bioengineered Tissue Yes Yes -Type of Bioengineered Tissue Epicord Epifix Epicord -Expiration Date 08/11/27 09/11/27 09/11/27 -Product Lot Number [id number] -Percent Used 100 100 100 -Lot number of Saline Used [id number] -Bleeding Controlled with Pressure Pressure Pressure -Treatment Response Procedure Procedure Procedure Tolerated Well Tolerated Well Tolerated Well -Offloading No No -Debridement - Subq, 1st 20sq cm No No No -Apply Skin Sub - 1st 25 sq cm - Legs 1 1 1 -Epicord (per sq cm) 6 6 -Epifix (per sq cm) 4 Pain Scale: 0-10 Numeric Is Patient Pain Free? Yes Yes Yes 02/04/23 09:25 Wound Center Nurse 2 #2- L LAT RIB/AXILLA -Time 09:31 -Tunneling No -Undermining/Tunneling No -Circular Undermining No -Foul Odor after Cleansing No -Expiration Date 09/11/27 -Product Lot Number [id number] -Percent Used 100 -Lot number of Saline Used [id number] -Bleeding Controlled with Pressure -Debridement - Subq, 1st 20sq cm No #1- L axilla/rib -Time 09:34 -Correct Patient Yes -Correct Side, Site, Position Yes -Correct Procedure Yes -Procedure Performed Yes -Type of Procedure Debridement -Clinical Debridement Subcutaneous -Tissue Removed Subcutaneous -Post Debridement (cm) - Length 0.3 -Post Debridement (cm) - Width 1.7 -Post Debridement (cm) - Depth 0.5 -Total Square (Post) (cm) 0.51 -Area of Debridement (cm) - Length 0.3 -Area of Debridement (cm) - Width 1.7 -Total Square (Area) (cm) 0.51 -Tunneling No -Undermining/Tunneling No -Circular Undermining No -Wound/Ulcer Outcome Not Healed -Ulcer Cleansing Rinsed/ Irrigated with Saline -Foul Odor after Cleansing No -Bioengineered Tissue Yes -Type of Bioengineered Tissue Epicord -Expiration Date -Product Lot Number -Percent Used -Lot number of Saline Used -Bleeding Controlled with Pressure -Treatment Response Procedure Tolerated Well -Offloading -Debridement - Subq, 1st 20sq cm No -Apply Skin Sub - 1st 25 sq cm - Legs 1 -Epicord (per sq cm) 44 -Epifix (per sq cm) Pain Scale: 0-10 Numeric Is Patient Pain Free? Yes - Nurse 3 - General Ulcer D/C NN Start: 01/14/23 08:36 Freq: Status: Active Protocol: Activity Type Activity Date Activity User E-sign Co-sign Detail Recorded Client Recorded Date Recorded By Document 01/21/23 09:34 [facility] Desktop 01/21/23 09:35 [facility] Document 01/28/23 08:51 Laptop 01/28/23 08:51 Document 02/04/23 09:44 [facility] Desktop 02/04/23 09:45 [facility] 01/21/23 01/28/23 02/04/23 09:34 08:51 09:44 Wound Care Center Nurse 3 #2- L LAT RIB/AXILLA -Primary Dressing Applied Mepilex Border, Promogran -Other Dressing epi -Mepilex Border 3 -Promogran 1 #1- L axilla/rib -Ulcer Cleansing Rinsed/ Irrigated with Saline -Foul Odor after Cleansing No -Primary Dressing Applied Mepilex Border Mepilex Border Mepilex Border, Promogran -Other Dressing epifix, aquacel epi -Mepilex Border 1 1 0 -Promogran 0 Treatment Response Procedure Procedure Tolerated Well Tolerated Well Pain Scale: 0-10 Numeric Is Patient Pain Free? Yes Yes Yes - Visit Discharge Discharge Condition Stable Stable Stable Ambulatory Status Ambulatory Ambulatory Ambulatory Transportation Private Auto Private Auto Private Auto Accompanied by Medication Reconcilliation completed & Yes provided to patient/care provider Clinical Summary of Care Provided Yes Assessment/Plan Assessment/Plan (1) Nonhealing surgical wound: CODE(S): T81.89XA - Other complications of procedures, not elsewhere classified, initial encounter QUALIFIERS: Encounter type: initial encounter Qualified Code(s): T81.89XA - Other complications of procedures, not elsewhere classified, initial encounter (2) Dehiscence of surgical wound: CODE(S): T81.31XA - Disruption of external operation (surgical) wound, not elsewhere classified, initial encounter QUALIFIERS: Encounter type: initial encounter Qualified Code(s): T81.31XA - Disruption of external operation (surgical) wound, not elsewhere classified, initial encounter (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 Some improvement in depth. 7th application of skin substitute (Epicord) done today using 100% of product. Moistened with saline, Covered with wound veil and secured with steri strips. No significant drainage reported, Promogran overtop. Leave in place x 1 week. Optimal dietary protein, Vitamin C, D and Zinc recommended. Patient and spouse voiced understanding. Continue other chronic wound care plan. HBO has been discussed however patient has significant claustrophobia. Their questions were answered and they were advised to let us know if they have any further questions or concerns. Follow up in 1 week.
== END 2023-02-09 23:59 | disposition home or self-care (01) ==
LOC: WC 08:45
PROVIDERS: PCP Family Medicine; Referring Provider Family Medicine; Visit Provider Internal Medicine
DX: T81.31XA Disruption of external operation (surgical) wound, not elsewhere classified, initial encounter (principal); C49.3 Malignant neoplasm of connective and soft tissue of thorax; T81.89XA Other complications of procedures, not elsewhere classified, initial encounter; Z79.82 Long term (current) use of aspirin; Z79.890 Hormone replacement therapy; Z79.899 Other long term (current) drug therapy
CPT/HCPCS: 15271; Q4186; Q4187

== ENCOUNTER 2023-03-11 08:30 | Outpatient (RCR) | payer MEDICARE, OTHER, SELFPAY ==
[2023-02-10 00:35] VITALS: BP 134/55; PULSE 70; RESP 16; TEMP 35.7; BMI 27.2
[2023-02-11 08:30] VITALS: BP 155/39; PULSE 61; RESP 18; TEMP 35.2; BMI 27.2
--- NOTE | 2023-02-11 10:05 | PCM.WC.PN ---
History of Present Illness Date of Service: 02/11/23 Chief Complaint: Non healing surgical wound History of Wound: Mr. Hutchison is a 77 yo who [place]. Had been seen by another provider at this facility for non healing surgical wound/wound breakdown. Has been on several courses of antibiotics as well as topical antibiotics. 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 Prior to this, had 25 radiation therapy treatment for tumor size reduction. Per patient and his , surgical margins were cancer free post surgery. Progress of Wound: No new concerns at this time. Has had 7 applications of EpiFix/epi cord. Lateral area of opening probes much deeper and with an undermining as well. Denies increased drainage. Objective Data Objective Data Vital Signs: Vital Signs Temp Pulse Resp BP 95.4 F L 61 18 155/39 H 02/11/23 08:30 02/11/23 08:30 02/11/23 08:30 02/11/23 08:30 Weight: 169 lb Body Mass Index (BMI) 27.2 Charges/Coding Procedures Integumentary 150xxx-152xx: [id number] Skin sub graft trnk/arm/leg Physical Exam Const alert, oriented x3 and no apparent distress General Appearance: cooperative and comfortable HEENT normocephalic and head/scalp atraumatic Head and Scalp: normal to inspection Eyes EOMs intact bilaterally General Eye: normal appearance of both eyes Neck General: normal visual inspection Resp normal respiratory effort Effort and Inspection: able to speak in complete sentences Skin Wounds: wounds noted Neuro oriented x3, CN's II-XII intact bilaterally, moves all extremities and no focal motor deficits Psych mental status grossly normal, thought process normal, cooperative and affect normal Debridement Note Debridement Note Wound debrided: Left Axillary Area ( Medial ) Type of Debridement: Excisional debridement Anesthesia Used: 5% Lidocaine Gel Depth: Down to and including healthy tissue and in the subcutaneous layer Percentage of wound debrided: 100 Instrument Used: 3mm curette Tissue Removed: Slough and devitalized tissue Severity: Fat Layer Exposed Amount of bleeding with debridement: Mild Bleeding Controlled with: Pressure Patient tolerated procedure: Patient tolerated procedure well Post-Debridement Measurements and Additional Note: Post-Debridement Measurements/Treatment MIHIR - Nurse 1 - General Ulcer Assessment Start: 02/11/23 08:24 Freq: Status: Active Protocol: WC.LOWEXT Activity Type Activity Date Activity User E-sign Co-sign Detail Recorded Client Recorded Date Recorded By Document 02/11/23 08:30 Laptop 02/11/23 08:32 02/11/23 08:30 - Today's Visit Information Type of service Follow-up Visit (Physician/COST ENGINEER ) Arrival Mode Ambulatory Patient Identification Verified (Name & Yes ) Patient Requires Transmission-Based No Precautions Height and Weight Body Mass Index (BMI) 27.2 BMI Classification Overweight Vital Signs Temperature (97.8 F-99.1 F) 95.4 F L Temperature Source Temporal Pulse Rate (60-100) 61 Pulse Location Monitor Respiratory Rate (12-18) 18 Respiratory rate source Observation Blood Pressure (90/60-120/80) 155/39 H Blood Pressure Mean (mm Hg) 77 Source Monitor Position Sitting Blood Pressure Location Left Arm History Since Last Visit- (Skip if this is Patient's initial visit) Have you changed medications since your No last visit? Any new allergies or adverse reactions No Had a fall/change in ADL's that may No increase risk of falls Signs or symptoms of abuse and/or No neglect since last visit Have you been in the hospital since your No last visit? Has dressing in place as prescribed Yes Has compression in place as prescribed N/A Has offloadiing in place as prescribed N/A Experienced any changes in pain level or No management Left Footwear Regular Shoe Right Footwear Regular Shoe Pain Scale: 0-10 Numeric Is Patient Pain Free? Yes - Nurse 1 - General Ulcer Measurement Start: 02/11/23 08:24 Freq: Status: Active Protocol: Activity Type Activity Date Activity User E-sign Co-sign Detail Recorded Client Recorded Date Recorded By Document 02/11/23 08:30 Laptop 02/11/23 08:32 02/11/23 08:30 Wound Center Nurse 1 #2- L LAT RIB/AXILLA -Combined with other wound No -Current Size (cm) - Length 0.5 -Current Size (cm) - Width 1.8 -Current Size (cm) - Depth 0.6 -Total Square Cm 0.90 -Photo Taken Yes -Epithelialization Small 1-33% -Tunneling No -Undermining/Tunneling No -Circular Undermining No -Exudate Amt Small -Exudate Type Serosanguineous -Wound Margin Flat & Intact -Granulation Amt None Present (0 %) -Slough/Fibrin Yes -Necrosis Amt Large (67-100%) -Necrotic Tissue Type Adherent Slough -Structure Exposed N/A -Texture (Sangeeta-wound Skin Appearance) Assessed, Scarring -Moisture (Sangeeta-wound Skin Appearance) Assessed,Dry/ Scaly -Color (Sangeeta-wound Skin Appearance) Assessed -Temperature (Sangeeta-wound Skin No Abnormality Appearance) (Pt Warm) -Tenderness on Palpation (Sangeeta-wound No Skin Appearance) -Ulcer Cleansing Wound Cleanser -Foul Odor after Cleansing No -Anesthetic Used 5% Lidocaine Gel Lower Limb Edema Present NA WC - Nurse 2 - General Ulcer CM Notes Start: 02/11/23 08:24 Freq: Status: Active Protocol: Activity Type Activity Date Activity User E-sign Co-sign Detail Recorded Client Recorded Date Recorded By Document 02/11/23 08:51 GM Desktop 02/11/23 09:00 GM 02/11/23 08:51 Wound Center Nurse 2 #2- L LAT RIB/AXILLA -Time 08:51 -Correct Patient Yes -Correct Side, Site, Position Yes -Correct Procedure Yes -Procedure Performed Yes -Type of Procedure Debridement -Clinical Debridement Subcutaneous -Tissue Removed Subcutaneous -Post Debridement (cm) - Length 0.2 -Post Debridement (cm) - Width 0.6 -Post Debridement (cm) - Depth 0.6 -Total Square (Post) (cm) 0.12 -Area of Debridement (cm) - Length 0.2 -Area of Debridement (cm) - Width 0.6 -Total Square (Area) (cm) 0.12 -Tunneling Yes -Tunneling Position (O'clock) 1 -Tunneling Distance (cm) 3.6 -Undermining/Tunneling No -Circular Undermining No -Wound/Ulcer Outcome Not Healed -Ulcer Cleansing Rinsed/ Irrigated with Saline -Foul Odor after Cleansing No -Bioengineered Tissue No -Bleeding Controlled with Pressure -Treatment Response Procedure Tolerated Well -Debridement - Subq, 1st 20sq cm Yes -Epicord (per sq cm) 6 #1- L axilla/rib -Time 08:45 -Correct Patient Yes -Correct Side, Site, Position Yes -Correct Procedure Yes -Procedure Performed Yes -Type of Procedure Debridement -Clinical Debridement Subcutaneous -Tissue Removed Subcutaneous -Post Debridement (cm) - Length 0.3 -Post Debridement (cm) - Width 1.7 -Post Debridement (cm) - Depth 0.7 -Total Square (Post) (cm) 0.51 -Area of Debridement (cm) - Length 0.3 -Area of Debridement (cm) - Width 1.7 -Total Square (Area) (cm) 0.51 -Tunneling No -Undermining/Tunneling No -Circular Undermining No -Wound/Ulcer Outcome Not Healed -Ulcer Cleansing Rinsed/ Irrigated with Saline -Foul Odor after Cleansing No -Bioengineered Tissue Yes -Type of Bioengineered Tissue Epicord -Expiration Date 09/11/27 -Product Lot Number [id number] -Percent Used 100 -Lot number of Saline Used [id number] -Bleeding Controlled with Pressure -Treatment Response Procedure Tolerated Well -Debridement - Subq, 1st 20sq cm No -Epicord (per sq cm) 6 Pain Scale: 0-10 Numeric Is Patient Pain Free? Yes - Nurse 3 - General Ulcer D/C NN Start: 02/11/23 08:24 Freq: Status: Active Protocol: Activity Type Activity Date Activity User E-sign Co-sign Detail Recorded Client Recorded Date Recorded By Document 02/11/23 09:09 KW Desktop 02/11/23 09:09 KW 02/11/23 09:09 Wound Care Center Nurse 3 #2- L LAT RIB/AXILLA -Primary Dressing Applied Mepilex Border -Mepilex Border 1 #1- L axilla/rib -Other Dressing covered with mepilex Pain Scale: 0-10 Numeric Is Patient Pain Free? Yes - Visit Discharge Discharge Condition Stable Ambulatory Status Ambulatory Transportation Private Auto Medication Reconcilliation completed & No provided to patient/care provider Clinical Summary of Care Provided Yes Additional Wound Wound debrided: Left Axillary area ( Lateral ) Type of Debridement: Excisional debridement Anesthesia Used: 4% Lidocaine Solution Depth: Down to and including healthy tissue and in the subcutaneous layer Percentage of wound debrided: 100 Instrument Used: 3mm curette Tissue Removed: Slough and devitalized tissue Severity: Fat Layer Exposed Amount of bleeding with debridement: Mild Bleeding Controlled with: Pressure Patient tolerated procedure: Patient tolerated procedure well Assessment/Plan Assessment/Plan (1) Nonhealing surgical wound: CODE(S): T81.89XA - Other complications of procedures, not elsewhere classified, initial encounter QUALIFIERS: Encounter type: initial encounter Qualified Code(s): T81.89XA - Other complications of procedures, not elsewhere classified, initial encounter (2) Dehiscence of surgical wound: CODE(S): T81.31XA - Disruption of external operation (surgical) wound, not elsewhere classified, initial encounter QUALIFIERS: Encounter type: initial encounter Qualified Code(s): T81.31XA - Disruption of external operation (surgical) wound, not elsewhere classified, initial encounter (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 Lateral opening with significant undermining. Actually communicates with prior wound. 8th application of skin substitute (Epicord) done today using 100% of product. Moistened with saline, Covered with wound veil and secured with steri strips. No significant drainage reported, Promogran overtop. Optimal dietary protein, Vitamin C, D and Zinc recommended. Patient and spouse voiced understanding. Continue other chronic wound care plan. HBO has been discussed however patient has significant claustrophobia and so was not open to it. Due to further breakdown, I discussed with them the option for surgical debridement and flap closure. This is something they may be interested in. He states that he saw plastic surgery briefly at the [facility] but did not go back. He would like to see someone local for convenience, referral placed to Dr. Connelly. Their questions were answered and they were advised to let us know if they have any further questions or concerns. Follow up in 2 weeks.
[2023-02-25 08:28] VITALS: BP 140/35; PULSE 61; RESP 16; TEMP 36; BMI 27.2
--- NOTE | 2023-02-25 09:03 | PN.PCM_ITS ---
History of Present Illness Date of Service: 02/25/23 Chief Complaint: Non healing surgical wound History of Wound: Mr. Hutchison is a 77 yo who is a transfer of care to [place]. Had been seen by another provider at this facility for non healing surgical wound/wound breakdown. Has been on several courses of antibiotics as well as topical antibiotics. 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 Prior to this, had 25 radiation therapy treatment for tumor size reduction. Per patient and his , surgical margins were cancer free post surgery. Progress of Wound: No new concerns at this time. Denies any significant drainage or pain. Has an appointment with plastic surgery on Wednesday and an MRI scheduled for tomorrow. Objective Data Objective Data Vital Signs: Vital Signs Temp Pulse Resp BP O2 Del Method 96.8 F L 61 16 140/35 H Room Air 02/25/23 08:28 02/25/23 08:28 02/25/23 08:28 02/25/23 08:28 02/25/23 08:28 Oxygen Delivery Method Room Air Weight: 169 lb Body Mass Index (BMI) 27.2 Charges/Coding Procedures Integumentary 111xxx-113xx: 43678 Nicole subq tissue 20 sq cm/< Physical Exam Const alert, oriented x3 and no apparent distress General Appearance: cooperative and comfortable HEENT normocephalic and head/scalp atraumatic Head and Scalp: normal to inspection Eyes EOMs intact bilaterally General Eye: normal appearance of both eyes Neck General: normal visual inspection Resp normal respiratory effort Effort and Inspection: able to speak in complete sentences Skin Wounds: wounds noted Neuro oriented x3, CN's II-XII intact bilaterally, moves all extremities and no focal motor deficits Psych mental status grossly normal, thought process normal, cooperative and affect normal Debridement Note Debridement Note Wound debrided: Left Axillary Area ( Medial ) Type of Debridement: Excisional debridement Anesthesia Used: 5% Lidocaine Gel Depth: Down to and including healthy tissue and in the subcutaneous layer Percentage of wound debrided: 100 Instrument Used: 3mm curette Tissue Removed: Slough and devitalized tissue Severity: Fat Layer Exposed Amount of bleeding with debridement: Mild Bleeding Controlled with: Pressure Patient tolerated procedure: Patient tolerated procedure well Post-Debridement Measurements and Additional Note: Post-Debridement Measurements/Treatment WC - Nurse 1 - General Ulcer Assessment Start: 11/02/23 08:24 Freq: Status: Active Protocol: ONELIA Activity Type Activity Date Activity User E-sign Co-sign Detail Recorded Client Recorded Date Recorded By Document 02/11/23 08:30 Laptop 02/11/23 08:32 Document 02/25/23 08:28 [facility] Desktop 02/25/23 08:34 [facility] 02/11/23 02/25/23 08:30 08:28 - Today's Visit Information Type of service Follow-up Visit Follow-up Visit (Physician/MULTIPLE PUNCH PRESS OPERATOR (Physician/MULTIPLE PUNCH PRESS OPERATOR ) ) Arrival Mode Ambulatory Ambulatory Transfer Assistance None Accompanied by Patient Identification Verified (Name & Yes Yes ) Patient Requires Transmission-Based No No Precautions Height and Weight Body Mass Index (BMI) 27.2 27.2 BMI Classification Overweight Overweight Vital Signs Temperature (97.8 F-99.1 F) 95.4 F L 96.8 F L Temperature Source Temporal Temporal Pulse Rate (60-100) 61 61 Pulse Location Monitor Monitor Respiratory Rate (12-18) 18 16 Respiratory rate source Observation Observation Oxygen Delivery Method Room Air Blood Pressure (90/60-120/80) 155/39 H 140/35 H Blood Pressure Mean (mm Hg) 77 70 Source Monitor Monitor Position Sitting Sitting Blood Pressure Location Left Arm Left Arm History Since Last Visit- (Skip if this is Patient's initial visit) Have you changed medications since your No No last visit? Any new allergies or adverse reactions No No Had a fall/change in ADL's that may No No increase risk of falls Signs or symptoms of abuse and/or No No neglect since last visit Have you been in the hospital since your No No last visit? Has dressing in place as prescribed Yes Yes Has compression in place as prescribed N/A N/A Has offloadiing in place as prescribed N/A N/A Experienced any changes in pain level or No No management Left Footwear Regular Shoe Regular Shoe Right Footwear Regular Shoe Regular Shoe Pain Scale: 0-10 Numeric Is Patient Pain Free? Yes Yes - Nurse 1 - General Ulcer Measurement Start: 02/11/23 08:24 Freq: Status: Active Protocol: Activity Type Activity Date Activity User E-sign Co-sign Detail Recorded Client Recorded Date Recorded By Document 02/11/23 08:30 Laptop 02/11/23 08:32 Document 02/25/23 08:38 [facility] Desktop 02/25/23 08:40 F 02/11/23 02/25/23 08:30 08:38 Wound Center Nurse 1 #2- L LAT RIB/AXILLA -Combined with other wound No No -Current Size (cm) - Length 0.5 0.3 -Current Size (cm) - Width 1.8 0.5 -Current Size (cm) - Depth 0.6 0.4 -Total Square Cm 0.90 0.15 -Date of Last Picture (Recall this 02/25/23 field) -Photo Taken Yes Yes -Epithelialization Small 1-33% None Present -Tunneling No No -Undermining/Tunneling No No -Circular Undermining No No -Exudate Amt Small Medium -Exudate Type Serosanguineous Serosanguineous -Wound Margin Flat & Intact Distinct, Outline Attached -Granulation Amt None Present (0 Small (1-33%) %) -Granulation Quality Red -Slough/Fibrin Yes Yes -Necrosis Amt Large (67-100%) Large (67-100%) -Necrotic Tissue Type Adherent Slough Adherent Slough -Structure Exposed N/A -Texture (Sangeeta-wound Skin Appearance) Assessed, Assessed, Scarring Scarring -Moisture (Sangeeta-wound Skin Appearance) Assessed,Dry/ Assessed Scaly -Color (Sangeeta-wound Skin Appearance) Assessed Assessed -Temperature (Sangeeta-wound Skin No Abnormality No Abnormality Appearance) (Pt Warm) (Pt Warm) -Tenderness on Palpation (Sangeeta-wound No No Skin Appearance) -Ulcer Cleansing Wound Cleanser Soap and Water -Foul Odor after Cleansing No No -Anesthetic Used 5% Lidocaine 5% Lidocaine Gel Gel #1- L axilla/rib -Combined with other wound No -Current Size (cm) - Length 0.4 -Current Size (cm) - Width 2 -Current Size (cm) - Depth 0.4 -Total Square Cm 0.8 -Date of Last Picture (Recall this 02/25/23 field) -Photo Taken Yes -Epithelialization None Present -Tunneling No -Undermining/Tunneling No -Circular Undermining No -Exudate Amt Large -Exudate Type Purulent -Wound Margin Distinct, Outline Attached -Granulation Amt Small (1-33%) -Granulation Quality [place] -Slough/Fibrin Yes -Necrosis Amt Large (67-100%) -Necrotic Tissue Type Adherent Slough -Texture (Sangeeta-wound Skin Appearance) Assessed, Scarring -Moisture (Sangeeta-wound Skin Appearance) Assessed -Color (Sangeeta-wound Skin Appearance) Assessed -Temperature (Sangeeta-wound Skin No Abnormality Appearance) (Pt Warm) -Tenderness on Palpation (Sangeeta-wound No Skin Appearance) -Ulcer Cleansing Soap and Water -Foul Odor after Cleansing No -Anesthetic Used 5% Lidocaine Gel Lower Limb Edema Present NA WC - Nurse 2 - General Ulcer CM Notes Start: 02/11/23 08:24 Freq: Status: Active Protocol: Activity Type Activity Date Activity User E-sign Co-sign Detail Recorded Client Recorded Date Recorded By Document 02/11/23 08:51 GM Desktop 02/11/23 09:00 GM Edit Result 02/11/23 08:51 GM (1) [id number] 02/11/23 15:47 GM Document 02/25/23 08:44 GM Desktop 02/25/23 08:53 GM (1) #2- L LAT RIB/AXILLA - Epicord (per sq cm) 6 => #1- L axilla/rib - Apply Skin Sub - 1st 25 sq cm - Legs => 1 02/11/23 02/25/23 08:51 08:44 Wound Center Nurse 2 #2- L LAT RIB/AXILLA -Time 08:51 08:45 -Correct Patient Yes Yes -Correct Side, Site, Position Yes Yes -Correct Procedure Yes Yes -Procedure Performed Yes Yes -Type of Procedure Debridement Debridement -Clinical Debridement Subcutaneous Subcutaneous -Tissue Removed Subcutaneous Subcutaneous -Post Debridement (cm) - Length 0.2 0.5 -Post Debridement (cm) - Width 0.6 0.7 -Post Debridement (cm) - Depth 0.6 1.0 -Total Square (Post) (cm) 0.12 0.35 -Area of Debridement (cm) - Length 0.2 0.5 -Area of Debridement (cm) - Width 0.6 0.7 -Total Square (Area) (cm) 0.12 0.35 -Tunneling Yes Yes -Tunneling Position (O'clock) 1 1 -Tunneling Distance (cm) 3.6 3.5 -Undermining/Tunneling No -Circular Undermining No -Wound/Ulcer Outcome Not Healed Not Healed -Ulcer Cleansing Rinsed/ Rinsed/ Irrigated with Irrigated with Saline Saline -Foul Odor after Cleansing No No -Bioengineered Tissue No No -Bleeding Controlled with Pressure Pressure -Treatment Response Procedure Procedure Tolerated Well Tolerated Well -Debridement - Subq, 1st 20sq cm Yes No #1- L axilla/rib -Time 08:45 08:45 -Correct Patient Yes Yes -Correct Side, Site, Position Yes Yes -Correct Procedure Yes Yes -Procedure Performed Yes Yes -Type of Procedure Debridement Debridement -Clinical Debridement Subcutaneous Subcutaneous -Tissue Removed Subcutaneous Subcutaneous -Post Debridement (cm) - Length 0.3 0.3 -Post Debridement (cm) - Width 1.7 2.0 -Post Debridement (cm) - Depth 0.7 0.7 -Total Square (Post) (cm) 0.51 0.60 -Area of Debridement (cm) - Length 0.3 0.3 -Area of Debridement (cm) - Width 1.7 2.0 -Total Square (Area) (cm) 0.51 0.60 -Tunneling No No -Undermining/Tunneling No No -Circular Undermining No No -Wound/Ulcer Outcome Not Healed Not Healed -Ulcer Cleansing Rinsed/ Wound Cleanser Irrigated with Saline -Foul Odor after Cleansing No No -Bioengineered Tissue Yes -Type of Bioengineered Tissue Epicord -Expiration Date 09/11/27 -Product Lot Number [id number] -Percent Used 100 -Lot number of Saline Used [id number] -Bleeding Controlled with Pressure Pressure -Treatment Response Procedure Procedure Tolerated Well Tolerated Well -Debridement - Subq, 1st 20sq cm No Yes -Apply Skin Sub - 1st 25 sq cm - Legs 1 -Epicord (per sq cm) 6 Pain Scale: 0-10 Numeric Is Patient Pain Free? Yes Yes WC - Nurse 3 - General Ulcer D/C NN Start: 02/11/23 08:24 Freq: Status: Active Protocol: Activity Type Activity Date Activity User E-sign Co-sign Detail Recorded Client Recorded Date Recorded By Document 02/11/23 09:09 KW Desktop 02/11/23 09:09 KW 02/11/23 09:09 Wound Care Center Nurse 3 #2- L LAT RIB/AXILLA -Primary Dressing Applied Mepilex Border -Mepilex Border 1 #1- L axilla/rib -Other Dressing covered with mepilex Pain Scale: 0-10 Numeric Is Patient Pain Free? Yes WC - Visit Discharge Discharge Condition Stable Ambulatory Status Ambulatory Transportation Private Auto Medication Reconcilliation completed & No provided to patient/care provider Clinical Summary of Care Provided Yes Additional Wound Wound debrided: Left Axillary area ( Lateral ) Type of Debridement: Excisional debridement Anesthesia Used: 4% Lidocaine Solution Depth: Down to and including healthy tissue and in the subcutaneous layer Percentage of wound debrided: 100 Instrument Used: 3mm curette Tissue Removed: Slough and devitalized tissue Severity: Fat Layer Exposed Amount of bleeding with debridement: Mild Bleeding Controlled with: Pressure Patient tolerated procedure: Patient tolerated procedure well Assessment/Plan Assessment/Plan (1) Nonhealing surgical wound: CODE(S): T81.89XA - Other complications of procedures, not elsewhere classified, initial encounter QUALIFIERS: Encounter type: initial encounter Qualified Code(s): T81.89XA - Other complications of procedures, not elsewhere classified, initial encounter (2) Dehiscence of surgical wound: CODE(S): T81.31XA - Disruption of external operation (surgical) wound, not elsewhere classified, initial encounter QUALIFIERS: Encounter type: initial encounter Qualified Code(s): T81.31XA - Disruption of external operation (surgical) wound, not elsewhere classified, initial encounter (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 No significant change. As above, has an appointment with plastics, we will hold off [facility] as an examination may be needed during that visit. Aquacel extra daily, cover with Adaptic and gauze. Change if soaked. Scheduled for an MRI tomorrow by his surgeon. Continue other chronic wound care management. Optimal protein intake, protein supplements, vitamin C, D and zinc. Their questions were answered and they were advised to let us know if they have any further questions or concerns. Follow up in 2 weeks.
[2023-03-01 10:35] VITALS: BP 130/31; PULSE 60; RESP 20; TEMP 35.4; BMI 27.2
--- NOTE | 2023-03-01 23:38 | HP.PCM_ITS ---
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 History of Wound: 77 yo man presented with a nonhealing radiation ulcer left lateral chest wall near axilla. 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 According to the patient, the margins were cancer free after surgery. Has been on several courses of antibiotics as well as topical antibiotics. His most recent culture was on December 09, 2022 and was positive for MRSE and Actinomyces odontolyticus. Patient states he is having an MRI later in the week. Will obtain those result s. Today he denies fever. His appetite is good. Progress of Wound: Minimal improvement. [facility] Medical History (Updated 03/03/23 @ 23:[address] 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 Home Medications atenolol 50 mg tablet 50 mg PO QHS 08/03/17 [History Last Taken Unknown] atorvastatin 40 mg tablet 40 mg PO QHS 08/03/17 [History Last Taken Unknown] psyllium husk 0.52 gram capsule (Daily Fiber) 0.52 g PO DAILY 01/13/18 [History Last Taken Unknown] levothyroxine 50 mcg tablet 75 mcg PO DAILY 09/29/19 [History Last Taken Unknown] aspirin 81 mg tablet,delayed release (Adult Aspirin Regimen) 81 mg PO .COMPLEX 10/20/21 [History Last Taken Unknown] allopurinol 100 mg tablet 300 mg PO QHS 06/11/22 [History Last Taken Unknown] oxycodone 5 mg tablet 2.5 mg PO TID PRN 06/11/22 [History Last Taken Unknown] nitroglycerin 0.4 mg sublingual tablet 0.4 mg sublingual Q5-15M PRN chest pain #25 tabs 06/15/22 [Rx Last Taken Unknown] primidone 50 mg tablet 50 mg PO QAM #30 tabs 12/15/22 [Rx Last Taken Unknown] lisinopril 30 mg tablet 10 mg PO DAILY 01/05/23 [History Last Taken Unknown] Allergy/AdvReac Type Severity Reaction Status Date / Time doxycycline AdvReac Intermediate Rash Verified 01/05/23 08:34 Family History Father CAD (coronary artery disease) Hypertension Congestive heart failure Heart disease Brother Hypertension Heart disease Mother Ovarian cancer Surgical History History of arthroscopy of shoulder History of cardiac catheterization History of inguinal hernia repair History of repair of rotator cuff Postsurgical percutaneous transluminal coronary angioplasty (PTCA) status Presence of stent in coronary artery (~01/29/14) Social History Smoking Status: Former smoker Tobacco: How many years used: 30 second hand exposure: No alcohol intake: current substance use type: does not use what type of physical activity do you participate in: none magaly/religious: [employer] seatbelt use: always ROS ROS Narrative REVIEW OF SYSTEMS General - Denies fever, fatigue, and weight loss. Eyes - Denies cataracts and glaucoma. ENT - Denies nasal congestion and sore throat. Endocrine - Denies excessive thirst and urination. Skin - Denies suspicious lesions and skin cancer. Musculoskeletal - Denies joint pain, joint stiffness, weakness of muscles and joints, back pain, and arthritis. Neuro - Denies headaches. Cardiovascular - Denies chest pain, fatigue, and shortness of breath with exertion. Psych - Denies anxiety and depression. Respiratory - Denies chronic cough and shortness of breath. Gastrointestinal - Denies nausea, vomiting, diarrhea, and constipation. Hematologic - Denies abnormal bruising and bleeding. Genitourinary - Denies hematuria and urinary frequency. Vital Signs Vital Signs Vital Signs: Weight Weight: 169 lb Body Mass Index (BMI) 27.2 Physical Exam Narrative PHYSICAL EXAMINATION General - Alert and Oriented HEENT - PERRL. EOMI. Throat is clear. Neck - Supple and nontender. No cervical adenopathy. Lungs - Clear to auscultation. Heart - Regular rate and rhythm. Abdomen - Soft and nondistended. Extremities - FROM. No axillary adenopathy. Radial pulses are palpable. Neuro - CN II-XII grossly intact. Psych - Normal mood and affect. Debridement Note Debridement Note Wound debrided: #2 Left lateral chest wall near axilla. Laterality: Left Wound Grade/Stage: 4. Type of Debridement: Excisional debridement Anesthesia Used: 5% Lidocaine Gel Depth: Down to and including healthy tissue, in the subcutaneous layer, to muscle and to bone (bone seen but not debrided.) Percentage of wound debrided: 100 Instrument Used: 5mm curette Tissue Removed: subcutaneous tissue and muscle. Bone seen but not debrided. Severity: Fat Layer Exposed (muscle is exposed. Bone seen but not debrided.) Amount of bleeding with debridement: Mild Bleeding Controlled with: Pressure and Compression and gauze Patient tolerated procedure: Patient tolerated procedure well Debridement Free Text: A wound culture was obtained today. Post-Debridement Measurements and Additional Note: Post-Debridement Measurements/Treatment - Nurse 1 - General Ulcer Assessment Start: 02/11/23 08:24 Freq: Status: Active Protocol: .LOWEX Activity Type Activity Date Activity User E-sign Co-sign Detail Recorded Client Recorded Date Recorded By Document 02/11/23 08:30 [employer] Laptop 02/11/23 08:32 [employer] Document 02/25/23 08:28 [employer] Desktop 02/25/23 08:34 [employer] Document 03/01/23 10:35 [employer] Desktop 03/01/23 10:39 [facility] 02/11/23 02/25/23 03/01/23 08:30 08:28 10:35 - Today's Visit Information Type of service Follow-up Visit Follow-up Visit Follow-up Visit (Physician/TALKBACK HOST (Physician/TALKBACK HOST (Physician/TALKBACK HOST ) ) ) Arrival Mode Ambulatory Ambulatory Ambulatory Transfer Assistance None None Accompanied by Patient Identification Verified (Name & Yes Yes Yes ) Patient Requires Transmission-Based No No No Precautions Height and Weight Body Mass Index (BMI) 27.2 27.2 27.2 BMI Classification Overweight Overweight Overweight Vital Signs Temperature (97.8 F-99.1 F) 95.4 F L 96.8 F L 95.8 F L Temperature Source Temporal Temporal Temporal Pulse Rate (60-100) 61 61 60 Pulse Location Monitor Monitor Monitor Respiratory Rate (12-18) 18 16 20 H Respiratory rate source Observation Observation Observation Oxygen Delivery Method Room Air Blood Pressure (90/60-120/80) 155/39 H 140/35 H 130/31 H Blood Pressure Mean 77 70 64 Source Monitor Monitor Monitor Position Sitting Sitting Blood Pressure Location Left Arm Left Arm History Since Last Visit- (Skip if this is Patient's initial visit) Have you changed medications since your No No No last visit? Any new allergies or adverse reactions No No No Had a fall/change in ADL's that may No No No increase risk of falls Signs or symptoms of abuse and/or No No No neglect since last visit Have you been in the hospital since your No No No last visit? Has dressing in place as prescribed Yes Yes Yes Has compression in place as prescribed N/A N/A N/A Has offloadiing in place as prescribed N/A N/A N/A Experienced any changes in pain level or No No No management Left Footwear Regular Shoe Regular Shoe Right Footwear Regular Shoe Regular Shoe Pain Scale: 0-10 Numeric Is Patient Pain Free? Yes Yes Yes WC - Nurse 1 - General Ulcer Measurement Start: 02/11/23 08:24 Freq: Status: Active Protocol: Activity Type Activity Date Activity User E-sign Co-sign Detail Recorded Client Recorded Date Recorded By Document 02/11/23 08:30 [employer] Laptop 02/11/23 08:32 [employer] Document 02/25/23 08:38 [employer] Desktop 02/25/23 08:40 [employer] Document 03/01/23 10:35 [employer] 03/01/23 10:39 [employer] 02/11/23 02/25/23 03/01/23 08:30 08:38 10:35 Wound Center Nurse 1 #2- L LAT RIB/AXILLA -Combined with other wound No No -Current Size (cm) - Length 0.5 0.3 0.5 -Current Size (cm) - Width 1.8 0.5 1.4 -Current Size (cm) - Depth 0.6 0.4 0.4 -Total Square Cm 0.90 0.15 0.70 -Date of Last Picture (Recall this 02/25/23 field) -Photo Taken Yes Yes -Epithelialization Small 1-33% None Present -Tunneling No No -Tunneling Position (O'clock) 2 -Tunneling Distance (cm) 1.5 -Undermining/Tunneling No No -Circular Undermining No No -Exudate Amt Small Medium Medium -Exudate Type Serosanguineous Serosanguineous Serosanguineous -Wound Margin Flat & Intact Distinct, Distinct, Outline Outline Attached Attached -Granulation Amt None Present (0 Small (1-33%) Medium (34-66%) %) -Granulation Quality Red -Slough/Fibrin Yes Yes -Necrosis Amt Large (67-100%) Large (67-100%) Medium (34-66%) -Necrotic Tissue Type Adherent Slough Adherent Slough Adherent Slough -Structure Exposed N/A N/A -Texture ([place]-wound Skin Appearance) Assessed, Assessed, Scarring Scarring Scarring -Moisture ([place]-wound Skin Appearance) Assessed,Dry/ Assessed No Abnormality Scaly -Color ([place]-wound Skin Appearance) Assessed Assessed No Abnormality -Temperature ([place]-wound Skin No Abnormality No Abnormality No Abnormality Appearance) (Pt Warm) (Pt Warm) (Pt Warm) -Tenderness on Palpation ([place]-wound No No No Skin Appearance) -Ulcer Cleansing Wound Cleanser Soap and Water Soap and Water -Foul Odor after Cleansing No No No -Anesthetic Used 5% Lidocaine 5% Lidocaine 5% Lidocaine Gel Gel Gel #1- L axilla/rib -Combined with other wound No -Current Size (cm) - Length 0.4 0.4 -Current Size (cm) - Width 2 1.9 -Current Size (cm) - Depth 0.4 0.5 -Total Square Cm 0.8 0.76 -Date of Last Picture (Recall this 02/25/23 field) -Photo Taken Yes -Epithelialization None Present -Tunneling No -Undermining/Tunneling No -Circular Undermining No -Exudate Amt Large Medium -Exudate Type Purulent Serosanguineous -Wound Margin Distinct, Distinct, Outline Outline Attached Attached -Granulation Amt Small (1-33%) Medium (34-66%) -Granulation Quality [place] -Slough/Fibrin Yes -Necrosis Amt Large (67-100%) Medium (34-66%) -Necrotic Tissue Type Adherent Slough Adherent Slough -Structure Exposed N/A -Texture ([place]-wound Skin Appearance) Assessed, Scarring Scarring -Moisture ([place]-wound Skin Appearance) Assessed No Abnormality -Color ([place]-wound Skin Appearance) Assessed No Abnormality -Temperature ([place]-wound Skin No Abnormality No Abnormality Appearance) (Pt Warm) (Pt Warm) -Tenderness on Palpation ([place]-wound No No Skin Appearance) -Ulcer Cleansing Soap and Water Soap and Water -Foul Odor after Cleansing No No -Anesthetic Used 5% Lidocaine 5% Lidocaine Gel Gel Lower Limb Edema Present NA WC - Nurse 2 - General Ulcer CM Notes Start: 02/11/23 08:24 Freq: Status: Active Protocol: Activity Type Activity Date Activity User E-sign Co-sign Detail Recorded Client Recorded Date Recorded By Document 02/11/23 08:51 [employer] Desktop 02/11/23 09:00 GM Edit Result 02/11/23 08:51 GM (1) [id number] 02/11/23 15:47 GM Document 02/25/23 08:44 [employer] Desktop 02/25/23 08:53 GM Document 03/01/23 11:19 Laptop 03/01/23 11:31 JF (1) #2- L LAT RIB/AXILLA - Epicord (per sq cm) 6 => #1- L axilla/rib - Apply Skin Sub - 1st 25 sq cm - Legs => 1 02/11/23 02/25/23 03/01/23 08:51 08:44 11:19 Wound Center Nurse 2 #2- L LAT RIB/AXILLA -Time 08:51 08:45 11:25 -Correct Patient Yes Yes Yes -Correct Side, Site, Position Yes Yes Yes -Correct Procedure Yes Yes Yes -Procedure Performed Yes Yes Yes -Type of Procedure Debridement Debridement Debridement -Clinical Debridement Subcutaneous Subcutaneous Muscle / Fascia -Tissue Removed Subcutaneous Subcutaneous Muscle,Fascia -Post Debridement (cm) - Length 0.2 0.5 0.5 -Post Debridement (cm) - Width 0.6 0.7 1.5 -Post Debridement (cm) - Depth 0.6 1.0 0.4 -Total Square (Post) (cm) 0.12 0.35 0.75 -Area of Debridement (cm) - Length 0.2 0.5 0.5 -Area of Debridement (cm) - Width 0.6 0.7 1.5 -Total Square (Area) (cm) 0.12 0.35 0.75 -Tunneling Yes Yes No -Tunneling Position (O'clock) 1 1 -Tunneling Distance (cm) 3.6 3.5 -Undermining/Tunneling No No -Circular Undermining No No -Wound/Ulcer Outcome Not Healed Not Healed Not Healed -Ulcer Cleansing Rinsed/ Rinsed/ Rinsed/ Irrigated with Irrigated with Irrigated with Saline Saline Saline -Foul Odor after Cleansing No No No -Bioengineered Tissue No No No -Bleeding Controlled with Pressure Pressure Pressure -Treatment Response Procedure Procedure Procedure Tolerated Well Tolerated Well Tolerated Well -Offloading No -Debridement - Subq, 1st 20sq cm Yes No -Debridement - Muscle / Fascia, 1st Yes 20sq cm #1- L axilla/rib -Time 08:45 08:45 11:25 -Correct Patient Yes Yes Yes -Correct Side, Site, Position Yes Yes Yes -Correct Procedure Yes Yes Yes -Procedure Performed Yes Yes Yes -Type of Procedure Debridement Debridement Debridement -Clinical Debridement Subcutaneous Subcutaneous Muscle / Fascia -Tissue Removed Subcutaneous Subcutaneous Muscle,Fascia -Post Debridement (cm) - Length 0.3 0.3 0.5 -Post Debridement (cm) - Width 1.7 2.0 1.9 -Post Debridement (cm) - Depth 0.7 0.7 0.5 -Total Square (Post) (cm) 0.51 0.60 0.95 -Area of Debridement (cm) - Length 0.3 0.3 0.5 -Area of Debridement (cm) - Width 1.7 2.0 1.9 -Total Square (Area) (cm) 0.51 0.60 0.95 -Tunneling No No No -Undermining/Tunneling No No No -Circular Undermining No No No -Wound/Ulcer Outcome Not Healed Not Healed Not Healed -Ulcer Cleansing Rinsed/ Wound Cleanser Rinsed/ Irrigated with Irrigated with Saline Saline -Foul Odor after Cleansing No No No -Bioengineered Tissue Yes No -Type of Bioengineered Tissue Epicord -Expiration Date 09/11/27 -Product Lot Number [id number] -Percent Used 100 -Lot number of Saline Used [id number] -Bleeding Controlled with Pressure Pressure Pressure -Treatment Response Procedure Procedure Procedure Tolerated Well Tolerated Well Tolerated Well -Offloading No -Debridement - Subq, 1st 20sq cm No Yes -Debridement - Muscle / Fascia, 1st No 20sq cm -Apply Skin Sub - 1st 25 sq cm - Legs 1 -Epicord (per sq cm) 6 Pain Scale: 0-10 Numeric Is Patient Pain Free? Yes Yes Yes WC - Nurse 3 - General Ulcer D/C NN Start: 02/11/23 08:24 Freq: Status: Active Protocol: Activity Type Activity Date Activity User E-sign Co-sign Detail Recorded Client Recorded Date Recorded By Document 02/11/23 09:09 KW Desktop 02/11/23 09:09 KW Document 02/25/23 09:09 DL Desktop 02/25/23 09:10 DL Document 03/01/23 11:43 BM Desktop 03/01/23 11:45 BMF 02/11/23 02/25/23 03/01/23 09:09 09:09 11:43 Wound Care Center Nurse 3 #2- L LAT RIB/AXILLA -Ulcer Cleansing Rinsed/ Rinsed/ Irrigated with Irrigated with Saline Saline -Foul Odor after Cleansing No No -Primary Dressing Applied Mepilex Border Aquacel Extra, Aquacel Extra, NonAdherent Mepilex Border Contact Layer -Primary Dressing Covered/Secured with Dry Gauze, Secured with Tape -Aquacel Extra 1 1 -Mepilex Border 1 1 #1- L axilla/rib -Ulcer Cleansing Rinsed/ Rinsed/ Irrigated with Irrigated with Saline Saline -Foul Odor after Cleansing No No -Primary Dressing Applied NonAdherent Aquacel Extra, Contact Layer Mepilex Border -Other Dressing covered with aqaucel EX mepilex -Primary Dressing Covered/Secured with Dry Gauze, Secured with Tape -Aquacel Extra 0 -Mepilex Border 0 Treatment Response Procedure Procedure Tolerated Well Tolerated Well Pain Scale: 0-10 Numeric Is Patient Pain Free? Yes Yes Yes WC - Visit Discharge Discharge Condition Stable Stable Stable Ambulatory Status Ambulatory Ambulatory Ambulatory Transportation Private Auto Private Auto Private Auto Accompanied by Medication Reconcilliation completed & No provided to patient/care provider Clinical Summary of Care Provided Yes Lab / Micro Data Micro: Microbiology 03/01/23 11:30 Wound - Chest Gram Stain - Final 03/01/23 11:30 Wound - Chest Wound Culture - Preliminary Gram positive organism Charges/Coding Visit Charges Office Visits / Consults: [id number] OV L4 New (25 Modifier ICD-10 - L98.499, L59.8, T66.xxxS, C49.3, C49.6, A49.8) Procedures Integumentary [id number]: [id number] Nicole musc/fascia 20 sq cm/< ( ICD-10 - L98.499, L59.8, T66.xxxS, E11.9, C20, Z98.890, Z93.3) Assessment/Plan Assessment/Plan (1) Radiation skin ulcer of chest: CODE(S): L98.499 - Non-pressure chronic ulcer of skin of other sites with unspecified severity (2) Soft tissue radionecrosis: CODE(S): L59.8 - Other specified disorders of the skin and subcutaneous tissue related to radiation; Y84.2 - Radiological procedure and radiotherapy as the cause of abnormal reaction of the patient, or of later complication, without mention of misadventure at the time of the procedure (3) Late effect of radiation: CODE(S): T66.XXXS - Radiation sickness, unspecified, sequela (4) Sarcoma of chest wall: CODE(S): C49.3 - Malignant neoplasm of connective and soft tissue of thorax (5) Sarcoma of back: CODE(S): C49.6 - Malignant neoplasm of connective and soft tissue of trunk , unspecified (6) Methicillin resistant Staphylococcus epidermidis infection: CODE(S): A49.8 - Other bacterial infections of unspecified site; Z16.29 - Resistance to other single specified antibiotic PLAN: Plan Patient has a radiation ulcer left lateral chest wall with some extension onto lateral back. He had a sarcoma excised in this area. Discussed with the patient that radiation ulcers are difficult to heal. HBO treatments can be very helpful in improving the local oxygenation in the tissue. Patient states he is claustrophobic and will not go near the HBO tank. He said he will think about it if Valium is given. In November,, patient had a wound culture done which was positive for MRSE and Actinomyces odontolyticus. A wound culture was obtained today. A positive culture would necessitate antibiotic therapy. Will need to check another culture prior to wound closure with a muscle flap. A skin flap is possible only if HBO treatments are done as well. Bringing in non- radiated tissue to the wound is the best route to take especially if no HBO treatment are done. Muscles that would be used include the rectus muscle and the latissimus muscle. Initial stage is a surgical debridement which cleans up the ulcer and also checks for the presence of residual cancer. A wound culture is also done. A positive culture would necessitate antibiotic therapy. Anticipate increased metabolic demands from the radiation ulcer and any subsequent surgeries. Will check a Prealbumin and encourage nutritional supplementation with protein to help the healing process. Before any surgery is done, I will check with his Surgical Oncologist. I wasn't there for the initial surgery so I don't know if the sarcoma had progressed down to the rib. If so, then any subsequent surgery in the future may need to excise a portion of rib. On exam, the bone is easily palpable so a bone biopsy would also be done at the time of the debridement to evaluate for osteomyelitis. I also want to check with the Surgical Oncologist to make sure it is okay to proceed with a debridement and future wound closure with a muscle flap in [place] at a [facility] or if the patient would be best served to have any future surgeries done at a tertiary center. For the initial debridement, it would be done under general anesthesia with a surgical observation overnight stay in the hospital. Postop wound care would be with the VAC. For the definitive muscle flap for wound closure, it would also be done under general anesthesia with a 3-5 day stay in the hospital. Patient was informed of the risks and complications of the procedure including alternatives to surgery. These were discussed with the patient personally. Patient voices understanding and wishes to proceed. Potential risks and complications included but not inclusive of bleeding, infection, seroma, hematoma, bruising, swelling, prolonged need for drains, loss of sensation to skin, partial or complete loss of skin flap and/or skin graft, wound breakdown, need for wound care, poor scarring, poor aesthetic outcome, intra operative cardiac or neurologic events, DVT, PE, and reaction to anesthesia.
[2023-03-11 08:28] VITALS: BP 141/41; PULSE 68; RESP 16; TEMP 35.7; BMI 27.2
--- NOTE | 2023-03-11 09:18 | PCM.WC.PN ---
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 History of Wound: Mr. Hutchison is a 77 yo who is a [place] [facility] [place]. Had been seen by another provider at this facility for non healing surgical wound/wound breakdown. Has been on several courses of antibiotics as well as topical antibiotics. 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 Prior to this, had 25 radiation therapy treatment for tumor size reduction. Per patient and his , surgical margins were cancer free post surgery. Progress of Wound: Seen in consult by plastic surgery/Dr. Connelly and plan is for surgical intervention. No new concerns reported at this time. Objective Data Objective Data Vital Signs: Vital Signs Temp Pulse Resp BP O2 Del Method 96.3 F L 68 16 141/41 H Room Air 03/11/23 08:28 03/11/23 08:28 03/11/23 08:28 03/11/23 08:28 03/11/23 08:28 Oxygen Delivery Method Room Air Weight: 169 lb Body Mass Index (BMI) 27.2 Lab / Micro Data Micro: Microbiology 03/01/23 11:30 Wound - Chest Gram Stain - Final 03/01/23 11:30 Wound - Chest Wound Culture - Final Staphylococcus epidermidis Adenikea karthikeyanii 03/01/23 11:30 Wound - Chest Anaerobic Culture - Final Anaerobic cocci Charges/Coding Procedures Integumentary [id number]: [id number] Nicole subq tissue 20 sq cm/< Physical Exam Const alert, oriented x3 and no apparent distress General Appearance: cooperative and comfortable HEENT normocephalic and head/scalp atraumatic Head and Scalp: normal to inspection Eyes EOMs intact bilaterally General Eye: normal appearance of both eyes Neck General: normal visual inspection Resp normal respiratory effort Effort and Inspection: able to speak in complete sentences Skin Wounds: wounds noted Neuro oriented x3, CN's II-XII intact bilaterally, moves all extremities and no focal motor deficits Psych mental status grossly normal, thought process normal, cooperative and affect normal Debridement Note Debridement Note Wound debrided: Left Axillary Area ( Medial ) Type of Debridement: Excisional debridement Anesthesia Used: 5% Lidocaine Gel Depth: Down to and including healthy tissue and in the subcutaneous layer Percentage of wound debrided: 100 Instrument Used: 5mm curette Tissue Removed: Slough and devitalized tissue Severity: Fat Layer Exposed Amount of bleeding with debridement: Mild Bleeding Controlled with: Pressure Patient tolerated procedure: Patient tolerated procedure well Post-Debridement Measurements and Additional Note: Post-Debridement Measurements/Treatment - Nurse 1 - General Ulcer Assessment Start: 02/11/23 08:24 Freq: Status: Active Protocol: MIHIR.HEENA Activity Type Activity Date Activity User E-sign Co-sign Detail Recorded Client Recorded Date Recorded By Document 02/11/23 08:30 Vocation Laptop 02/11/23 08:32 JF Document 02/25/23 08:28 BMF Desktop 02/25/23 08:34 BMF Document 03/01/23 10:35 BMF Desktop 03/01/23 10:39 BMF Document 03/11/23 08:28 BMF Desktop 03/11/23 08:34 BMF 02/11/23 02/25/23 03/01/23 08:30 08:28 10:35 - Today's Visit Information Type of service Follow-up Visit Follow-up Visit Follow-up Visit (Physician/ANIMAL RIDE MANAGER (Physician/ANIMAL RIDE MANAGER (Physician/ANIMAL RIDE MANAGER ) ) ) Arrival Mode Ambulatory Ambulatory Ambulatory Transfer Assistance None None Accompanied by Patient Identification Verified (Name & Yes Yes Yes ) Patient Requires Transmission-Based No No No Precautions Height and Weight Body Mass Index (BMI) 27.2 27.2 27.2 BMI Classification Overweight Overweight Overweight Vital Signs Temperature (97.8 F-99.1 F) 95.4 F L 96.8 F L 95.8 F L Temperature Source Temporal Temporal Temporal Pulse Rate (60-100) 61 61 60 Pulse Location Monitor Monitor Monitor Respiratory Rate (12-18) 18 16 20 H Respiratory rate source Observation Observation Observation Oxygen Delivery Method Room Air Blood Pressure (90/60-120/80) 155/39 H 140/35 H 130/31 H Blood Pressure Mean (mm Hg) 77 70 64 Source Monitor Monitor Monitor Position Sitting Sitting Blood Pressure Location Left Arm Left Arm History Since Last Visit- (Skip if this is Patient's initial visit) Have you changed medications since your No No No last visit? Any new allergies or adverse reactions No No No Had a fall/change in ADL's that may No No No increase risk of falls Signs or symptoms of abuse and/or No No No neglect since last visit Have you been in the hospital since your No No No last visit? Has dressing in place as prescribed Yes Yes Yes Has compression in place as prescribed N/A N/A N/A Has offloadiing in place as prescribed N/A N/A N/A Experienced any changes in pain level or No No No management Left Footwear Regular Shoe Regular Shoe Right Footwear Regular Shoe Regular Shoe Pain Scale: 0-10 Numeric Is Patient Pain Free? Yes Yes Yes 03/11/23 08:28 - Today's Visit Information Type of service Follow-up Visit (Physician/ANIMAL RIDE MANAGER ) Arrival Mode Ambulatory Transfer Assistance None Accompanied by Patient Identification Verified (Name & Yes ) Patient Requires Transmission-Based No Precautions Height and Weight Body Mass Index (BMI) 27.2 BMI Classification Overweight Vital Signs Temperature (97.8 F-99.1 F) 96.3 F L Temperature Source Temporal Pulse Rate (60-100) 68 Pulse Location Monitor Respiratory Rate (12-18) 16 Respiratory rate source Observation Oxygen Delivery Method Room Air Blood Pressure (90/60-120/80) 141/41 H Blood Pressure Mean (mm Hg) 74 Source Monitor Position Sitting Blood Pressure Location Left Arm History Since Last Visit- (Skip if this is Patient's initial visit) Have you changed medications since your No last visit? Any new allergies or adverse reactions No Had a fall/change in ADL's that may No increase risk of falls Signs or symptoms of abuse and/or No neglect since last visit Have you been in the hospital since your No last visit? Has dressing in place as prescribed Yes Has compression in place as prescribed N/A Has offloadiing in place as prescribed N/A Experienced any changes in pain level or No management Left Footwear Regular Shoe Right Footwear Regular Shoe Pain Scale: 0-10 Numeric Is Patient Pain Free? Yes - Nurse 1 - General Ulcer Measurement Start: 02/11/23 08:24 Freq: Status: Active Protocol: Activity Type Activity Date Activity User E-sign Co-sign Detail Recorded Client Recorded Date Recorded By Document 02/11/23 08:30 Laptop 02/11/23 08:32 Document 02/25/23 08:38 [facility] Desktop 02/25/23 08:40 [facility] Document 03/01/23 10:35 [facility] Desktop 03/01/23 10:39 [facility] Document 03/11/23 08:28 [facility] Desktop 03/11/23 08:34 BMF 02/11/23 02/25/23 03/01/23 08:30 08:38 10:35 Wound Center Nurse 1 #2- L LAT RIB/AXILLA -Combined with other wound No No -Current Size (cm) - Length 0.5 0.3 0.5 -Current Size (cm) - Width 1.8 0.5 1.4 -Current Size (cm) - Depth 0.6 0.4 0.4 -Total Square Cm 0.90 0.15 0.70 -Date of Last Picture (Recall this 02/25/23 field) -Photo Taken Yes Yes -Epithelialization Small 1-33% None Present -Tunneling No No -Tunneling Position (O'clock) 2 -Tunneling Distance (cm) 1.5 -Undermining/Tunneling No No -Undermining/Tunneling Starts (O'clock ) -Undermining/Tunneling Ends (O'clock) -Maximum Distance (cm) -Circular Undermining No No -Exudate Amt Small Medium Medium -Exudate Type Serosanguineous Serosanguineous Serosanguineous -Wound Margin Flat & Intact Distinct, Distinct, Outline Outline Attached Attached -Granulation Amt None Present (0 Small (1-33%) Medium (34-66%) %) -Granulation Quality Red -Slough/Fibrin Yes Yes -Necrosis Amt Large (67-100%) Large (67-100%) Medium (34-66%) -Necrotic Tissue Type Adherent Slough Adherent Slough Adherent Slough -Structure Exposed N/A N/A -Texture (Sangeeta-wound Skin Appearance) Assessed, Assessed, Scarring Scarring Scarring -Moisture (Sangeeta-wound Skin Appearance) Assessed,Dry/ Assessed No Abnormality Scaly -Color (Sangeeta-wound Skin Appearance) Assessed Assessed No Abnormality -Temperature (Sangeeta-wound Skin No Abnormality No Abnormality No Abnormality Appearance) (Pt Warm) (Pt Warm) (Pt Warm) -Tenderness on Palpation (Sangeeta-wound No No No Skin Appearance) -Ulcer Cleansing Wound Cleanser Soap and Water Soap and Water -Foul Odor after Cleansing No No No -Anesthetic Used 5% Lidocaine 5% Lidocaine 5% Lidocaine Gel Gel Gel #1- L Medial axilla/rib -Combined with other wound No -Current Size (cm) - Length 0.4 0.4 -Current Size (cm) - Width 2 1.9 -Current Size (cm) - Depth 0.4 0.5 -Total Square Cm 0.8 0.76 -Date of Last Picture (Recall this 02/25/23 field) -Photo Taken Yes -Epithelialization None Present -Tunneling No -Undermining/Tunneling No -Circular Undermining No -Exudate Amt Large Medium -Exudate Type Purulent Serosanguineous -Wound Margin Distinct, Distinct, Outline Outline Attached Attached -Granulation Amt Small (1-33%) Medium (34-66%) -Granulation Quality [place] Red -Slough/Fibrin Yes -Necrosis Amt Large (67-100%) Medium (34-66%) -Necrotic Tissue Type Adherent Slough Adherent Slough -Structure Exposed N/A -Texture (Sangeeta-wound Skin Appearance) Assessed, Scarring Scarring -Moisture (Sangeeta-wound Skin Appearance) Assessed No Abnormality -Color (Sangeeta-wound Skin Appearance) Assessed No Abnormality -Temperature (Sangeeta-wound Skin No Abnormality No Abnormality Appearance) (Pt Warm) (Pt Warm) -Tenderness on Palpation (Sangeeta-wound No No Skin Appearance) -Ulcer Cleansing Soap and Water Soap and Water -Foul Odor after Cleansing No No -Anesthetic Used 5% Lidocaine 5% Lidocaine Gel Gel Lower Limb Edema Present NA 03/11/23 08:28 Wound Center Nurse 1 #2- L LAT RIB/AXILLA -Combined with other wound No -Current Size (cm) - Length 0.6 -Current Size (cm) - Width 1.9 -Current Size (cm) - Depth 0.7 -Total Square Cm 1.14 -Date of Last Picture (Recall this field) -Photo Taken No -Epithelialization None Present -Tunneling No -Tunneling Position (O'clock) -Tunneling Distance (cm) -Undermining/Tunneling Yes -Undermining/Tunneling Starts (O'clock 1 ) -Undermining/Tunneling Ends (O'clock) 1 -Maximum Distance (cm) 1.7 -Circular Undermining No -Exudate Amt Medium -Exudate Type Serosanguineous -Wound Margin Distinct, Outline Attached -Granulation Amt Medium (34-66%) -Granulation Quality Red -Slough/Fibrin Yes -Necrosis Amt Medium (34-66%) -Necrotic Tissue Type Adherent Slough -Structure Exposed -Texture (Sangeeta-wound Skin Appearance) Assessed, Scarring -Moisture (Sangeeta-wound Skin Appearance) Assessed -Color (Sangeeta-wound Skin Appearance) Assessed -Temperature (Sangeeta-wound Skin No Abnormality Appearance) (Pt Warm) -Tenderness on Palpation (Sangeeta-wound No Skin Appearance) -Ulcer Cleansing Rinsed/ Irrigated with Saline -Foul Odor after Cleansing No -Anesthetic Used 5% Lidocaine Gel #1- L Medial axilla/rib -Combined with other wound No -Current Size (cm) - Length 0.3 -Current Size (cm) - Width 2 -Current Size (cm) - Depth 0.4 -Total Square Cm 0.6 -Date of Last Picture (Recall this field) -Photo Taken No -Epithelialization None Present -Tunneling No -Undermining/Tunneling No -Circular Undermining No -Exudate Amt Medium -Exudate Type Serosanguineous -Wound Margin Distinct, Outline Attached -Granulation Amt None Present (0 %) -Granulation Quality -Slough/Fibrin Yes -Necrosis Amt Large (67-100%) -Necrotic Tissue Type Adherent Slough -Structure Exposed -Texture (Sangeeta-wound Skin Appearance) Assessed, Scarring -Moisture (Sangeeta-wound Skin Appearance) Assessed -Color (Sangeeta-wound Skin Appearance) Assessed -Temperature (Sangeeta-wound Skin No Abnormality Appearance) (Pt Warm) -Tenderness on Palpation (Sangeeta-wound No Skin Appearance) -Ulcer Cleansing Rinsed/ Irrigated with Saline -Foul Odor after Cleansing No -Anesthetic Used 5% Lidocaine Gel Lower Limb Edema Present WC - Nurse 2 - General Ulcer CM Notes Start: 02/11/23 08:24 Freq: Status: Active Protocol: Activity Type Activity Date Activity User E-sign Co-sign Detail Recorded Client Recorded Date Recorded By Document 02/11/23 08:51 GM Desktop 02/11/23 09:00 GM Edit Result 02/11/23 08:51 GM (1) [id number] 02/11/23 15:47 GM Document 02/25/23 08:44 GM Desktop 02/25/23 08:53 GM Document 03/01/23 11:19 Laptop 03/01/23 11:31 Document 03/11/23 08:42 GM Desktop 03/11/23 08:58 GM (1) #2- L LAT RIB/AXILLA - Epicord (per sq cm) 6 => #1- L Medial axilla/rib - Apply Skin Sub - 1st 25 sq cm - Legs => 1 02/11/23 02/25/23 03/01/23 08:51 08:44 11:19 Wound Center Nurse 2 #2- L LAT RIB/AXILLA -Time 08:51 08:45 11:25 -Correct Patient Yes Yes Yes -Correct Side, Site, Position Yes Yes Yes -Correct Procedure Yes Yes Yes -Procedure Performed Yes Yes Yes -Type of Procedure Debridement Debridement Debridement -Clinical Debridement Subcutaneous Subcutaneous Muscle / Fascia -Tissue Removed Subcutaneous Subcutaneous Muscle,Fascia -Post Debridement (cm) - Length 0.2 0.5 0.5 -Post Debridement (cm) - Width 0.6 0.7 1.5 -Post Debridement (cm) - Depth 0.6 1.0 0.4 -Total Square (Post) (cm) 0.12 0.35 0.75 -Area of Debridement (cm) - Length 0.2 0.5 0.5 -Area of Debridement (cm) - Width 0.6 0.7 1.5 -Total Square (Area) (cm) 0.12 0.35 0.75 -Tunneling Yes Yes No -Tunneling Position (O'clock) 1 1 -Tunneling Distance (cm) 3.6 3.5 -Undermining/Tunneling No No -Circular Undermining No No -Wound/Ulcer Outcome Not Healed Not Healed Not Healed -Ulcer Cleansing Rinsed/ Rinsed/ Rinsed/ Irrigated with Irrigated with Irrigated with Saline Saline Saline -Foul Odor after Cleansing No No No -Bioengineered Tissue No No No -Bleeding Controlled with Pressure Pressure Pressure -Treatment Response Procedure Procedure Procedure Tolerated Well Tolerated Well Tolerated Well -Offloading No -Debridement - Subq, 1st 20sq cm Yes No -Debridement - Muscle / Fascia, 1st Yes 20sq cm #1- L Medial axilla/rib -Time 08:45 08:45 11:25 -Correct Patient Yes Yes Yes -Correct Side, Site, Position Yes Yes Yes -Correct Procedure Yes Yes Yes -Procedure Performed Yes Yes Yes -Type of Procedure Debridement Debridement Debridement -Clinical Debridement Subcutaneous Subcutaneous Muscle / Fascia -Tissue Removed Subcutaneous Subcutaneous Muscle,Fascia -Post Debridement (cm) - Length 0.3 0.3 0.5 -Post Debridement (cm) - Width 1.7 2.0 1.9 -Post Debridement (cm) - Depth 0.7 0.7 0.5 -Total Square (Post) (cm) 0.51 0.60 0.95 -Area of Debridement (cm) - Length 0.3 0.3 0.5 -Area of Debridement (cm) - Width 1.7 2.0 1.9 -Total Square (Area) (cm) 0.51 0.60 0.95 -Tunneling No No No -Undermining/Tunneling No No No -Circular Undermining No No No -Wound/Ulcer Outcome Not Healed Not Healed Not Healed -Ulcer Cleansing Rinsed/ Wound Cleanser Rinsed/ Irrigated with Irrigated with Saline Saline -Foul Odor after Cleansing No No No -Bioengineered Tissue Yes No -Type of Bioengineered Tissue Epicord -Expiration Date 09/11/27 -Product Lot Number [id number] -Percent Used 100 -Lot number of Saline Used [id number] -Bleeding Controlled with Pressure Pressure Pressure -Treatment Response Procedure Procedure Procedure Tolerated Well Tolerated Well Tolerated Well -Offloading No -Debridement - Subq, 1st 20sq cm No Yes -Debridement - Muscle / Fascia, 1st No 20sq cm -Apply Skin Sub - 1st 25 sq cm - Legs 1 -Epicord (per sq cm) 6 Pain Scale: 0-10 Numeric Is Patient Pain Free? Yes Yes Yes 03/11/23 08:42 Wound Center Nurse 2 #2- L LAT RIB/AXILLA -Time 08:42 -Correct Patient Yes -Correct Side, Site, Position Yes -Correct Procedure Yes -Procedure Performed Yes -Type of Procedure Debridement -Clinical Debridement Subcutaneous -Tissue Removed Subcutaneous -Post Debridement (cm) - Length 0.5 -Post Debridement (cm) - Width 2.4 -Post Debridement (cm) - Depth 0.9 -Total Square (Post) (cm) 1.20 -Area of Debridement (cm) - Length 0.5 -Area of Debridement (cm) - Width 2.4 -Total Square (Area) (cm) 1.20 -Tunneling No -Tunneling Position (O'clock) -Tunneling Distance (cm) -Undermining/Tunneling No -Circular Undermining No -Wound/Ulcer Outcome Not Healed -Ulcer Cleansing Rinsed/ Irrigated with Saline -Foul Odor after Cleansing No -Bioengineered Tissue No -Bleeding Controlled with Pressure -Treatment Response Procedure Tolerated Well -Offloading -Debridement - Subq, 1st 20sq cm Yes -Debridement - Muscle / Fascia, 1st 20sq cm #1- L Medial axilla/rib -Time 08:42 -Correct Patient Yes -Correct Side, Site, Position Yes -Correct Procedure Yes -Procedure Performed Yes -Type of Procedure Debridement -Clinical Debridement Subcutaneous -Tissue Removed Subcutaneous -Post Debridement (cm) - Length 0.4 -Post Debridement (cm) - Width 0.2 -Post Debridement (cm) - Depth 0.9 -Total Square (Post) (cm) 0.08 -Area of Debridement (cm) - Length 0.4 -Area of Debridement (cm) - Width 0.2 -Total Square (Area) (cm) 0.08 -Tunneling No -Undermining/Tunneling No -Circular Undermining No -Wound/Ulcer Outcome Not Healed -Ulcer Cleansing Rinsed/ Irrigated with Saline -Foul Odor after Cleansing No -Bioengineered Tissue No -Type of Bioengineered Tissue -Expiration Date -Product Lot Number -Percent Used -Lot number of Saline Used -Bleeding Controlled with Pressure -Treatment Response Procedure Tolerated Well -Offloading -Debridement - Subq, 1st 20sq cm No -Debridement - Muscle / Fascia, 1st 20sq cm -Apply Skin Sub - 1st 25 sq cm - Legs -Epicord (per sq cm) Pain Scale: 0-10 Numeric Is Patient Pain Free? Yes WC - Nurse 3 - General Ulcer D/C NN Start: 02/11/23 08:24 Freq: Status: Active Protocol: Activity Type Activity Date Activity User E-sign Co-sign Detail Recorded Client Recorded Date Recorded By Document 02/11/23 09:09 KW Desktop 02/11/23 09:09 KW Document 02/25/23 09:09 DL Desktop 02/25/23 09:10 DL Document 03/01/23 11:43 BMF Desktop 03/01/23 11:45 BMF Document 03/11/23 09:00 BMF Desktop 03/11/23 09:01 BMF 02/11/23 02/25/23 03/01/23 09:09 09:09 11:43 Wound Care Center Nurse 3 #2- L LAT RIB/AXILLA -Ulcer Cleansing Rinsed/ Rinsed/ Irrigated with Irrigated with Saline Saline -Foul Odor after Cleansing No No -Primary Dressing Applied Mepilex Border Aquacel Extra, Aquacel Extra, NonAdherent Mepilex Border Contact Layer -Other Dressing -Primary Dressing Covered/Secured with Dry Gauze, Secured with Tape -Aquacel Extra 1 1 -Mepilex Border 1 1 #1- L Medial axilla/rib -Ulcer Cleansing Rinsed/ Rinsed/ Irrigated with Irrigated with Saline Saline -Foul Odor after Cleansing No No -Primary Dressing Applied NonAdherent Aquacel Extra, Contact Layer Mepilex Border -Other Dressing covered with aqaucel EX mepilex -Primary Dressing Covered/Secured with Dry Gauze, Secured with Tape -Aquacel Extra 0 -Mepilex Border 0 Treatment Response Procedure Procedure Tolerated Well Tolerated Well Pain Scale: 0-10 Numeric Is Patient Pain Free? Yes Yes Yes WC - Visit Discharge Discharge Condition Stable Stable Stable Ambulatory Status Ambulatory Ambulatory Ambulatory Transportation Private Auto Private Auto Private Auto Accompanied by Medication Reconcilliation completed & No provided to patient/care provider Clinical Summary of Care Provided Yes 03/11/23 09:00 Wound Care Center Nurse 3 #2- L LAT RIB/AXILLA -Ulcer Cleansing Rinsed/ Irrigated with Saline -Foul Odor after Cleansing No -Primary Dressing Applied Aquacel Extra, Mepilex Border -Other Dressing per lisa rn -Primary Dressing Covered/Secured with -Aquacel Extra 0 -Mepilex Border 1 #1- L Medial axilla/rib -Ulcer Cleansing Rinsed/ Irrigated with Saline -Foul Odor after Cleansing No -Primary Dressing Applied Aquacel Extra, Mepilex Border -Other Dressing per lisa rn -Primary Dressing Covered/Secured with -Aquacel Extra 0 -Mepilex Border 0 Treatment Response Procedure Tolerated Well Pain Scale: 0-10 Numeric Is Patient Pain Free? Yes WC - Visit Discharge Discharge Condition Stable Ambulatory Status Ambulatory Transportation Private Auto Accompanied by Medication Reconcilliation completed & provided to patient/care provider Clinical Summary of Care Provided Additional Wound Wound debrided: Left Axillary area ( Lateral ) Type of Debridement: Excisional debridement Anesthesia Used: 4% Lidocaine Solution Depth: Down to and including healthy tissue and in the subcutaneous layer Percentage of wound debrided: 100 Instrument Used: 5mm curette Tissue Removed: Slough and devitalized tissue Severity: Fat Layer Exposed Amount of bleeding with debridement: Mild Bleeding Controlled with: Pressure Patient tolerated procedure: Patient tolerated procedure well Assessment/Plan Assessment/Plan (1) Nonhealing surgical wound: CODE(S): T81.89XA - Other complications of procedures, not elsewhere classified, initial encounter QUALIFIERS: Encounter type: initial encounter Qualified Code(s): T81.89XA - Other complications of procedures, not elsewhere classified, initial encounter (2) Dehiscence of surgical wound: CODE(S): T81.31XA - Disruption of external operation (surgical) wound, not elsewhere classified, initial encounter QUALIFIERS: Encounter type: initial encounter Qualified Code(s): T81.31XA - Disruption of external operation (surgical) wound, not elsewhere classified, initial encounter (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 No significant changes. As above, did establish with/see plastic surgery and plan is for surgical management. Patient again not open to HBO. He had an MRI done at the [facility] and per patient, no concerns were noted. Continue Aquacel extra daily, cover with Adaptic and gauze. Change if soaked. Continue other chronic wound care management. Optimal protein intake, protein supplements, vitamin C, D and zinc. Their questions were answered and they were advised to let us know if they have any further questions or concerns. Follow up in 2 weeks.
== END 2023-03-11 23:59 | disposition home or self-care (01) ==
LOC: WC 08:30
PROVIDERS: PCP Family Medicine; Referring Provider Family Medicine; Visit Provider Internal Medicine
DX: T81.31XA Disruption of external operation (surgical) wound, not elsewhere classified, initial encounter (principal); L98.492 Non-pressure chronic ulcer of skin of other sites with fat layer exposed; J42 Unspecified chronic bronchitis; N18.30 Chronic kidney disease, stage 3 unspecified; T81.89XA Other complications of procedures, not elsewhere classified, initial encounter; L59.8 Other specified disorders of the skin and subcutaneous tissue related to radiation; Y84.2 Radiological procedure and radiotherapy as the cause of abnormal reaction of the patient, or of later complication, without mention of misadventure at the time of the procedure; I12.9 Hypertensive chronic kidney disease with stage 1 through stage 4 chronic kidney disease, or unspecified chronic kidney disease; M10.9 Gout, unspecified; E78.5 Hyperlipidemia, unspecified; I25.10 Atherosclerotic heart disease of native coronary artery without angina pectoris; Z79.899 Other long term (current) drug therapy; Z92.3 Personal history of irradiation; Z85.831 Personal history of malignant neoplasm of soft tissue; Z87.891 Personal history of nicotine dependence
CPT/HCPCS: 11042; 11043; 15271; 87070; 87075; 87077; 87186; 87205; Q4187

== ENCOUNTER 2023-04-08 08:30 | Outpatient (RCR) | payer MEDICARE, OTHER, SELFPAY ==
[2023-03-12 00:18] VITALS: BP 141/41; PULSE 68; RESP 16; TEMP 35.7; BMI 27.2
[2023-03-25 08:24] VITALS: BP 142/44; PULSE 58; RESP 18; TEMP 36.4; BMI 27.2
--- NOTE | 2023-03-25 09:26 | PN.PCM_ITS ---
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 History of Wound: Mr. Hutchison is a 77 yo who is a transfer of care to [place]. Had been seen by another provider at this facility for non healing surgical wound/wound breakdown. Has been on several courses of antibiotics as well as topical antibiotics. 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 Prior to this, had 25 radiation therapy treatment for tumor size reduction. Per patient and his , surgical margins were cancer free post surgery. Progress of Wound: No new concerns at this time. Medial ulcer with some improvement in depth. Good granulation tissue and no significant drainage or discharge appreciated. Objective Data Objective Data Vital Signs: Vital Signs Temp Pulse Resp BP 97.5 F L 58 L 18 142/44 H 03/25/23 08:24 03/25/23 08:24 03/25/23 08:24 03/25/23 08:24 Weight: 169 lb Body Mass Index (BMI) 27.2 Charges/Coding Procedures Integumentary 111xxx-113xx: 33178 Nicole subq tissue 20 sq cm/< Physical Exam Const alert, oriented x3 and no apparent distress General Appearance: cooperative and comfortable HEENT normocephalic and head/scalp atraumatic Head and Scalp: normal to inspection Eyes EOMs intact bilaterally General Eye: normal appearance of both eyes Neck General: normal visual inspection Resp normal respiratory effort Effort and Inspection: able to speak in complete sentences Skin Wounds: wounds noted Neuro oriented x3, CN's II-XII intact bilaterally, moves all extremities and no focal motor deficits Psych mental status grossly normal, thought process normal, cooperative and affect normal Debridement Note Debridement Note Wound debrided: Left Axillary Area ( Medial ) Type of Debridement: Excisional debridement Anesthesia Used: 5% Lidocaine Gel Depth: Down to and including healthy tissue and in the subcutaneous layer Percentage of wound debrided: 100 Instrument Used: 5mm curette Tissue Removed: Slough and devitalized tissue Severity: Fat Layer Exposed Amount of bleeding with debridement: Mild Bleeding Controlled with: Pressure Patient tolerated procedure: Patient tolerated procedure well Post-Debridement Measurements and Additional Note: Post-Debridement Measurements/Treatment MIHIR - Nurse 1 - General Ulcer Assessment Start: 03/25/23 08:22 Freq: Status: Active Protocol: WC.LOWEXT Activity Type Activity Date Activity User E-sign Co-sign Detail Recorded Client Recorded Date Recorded By Document 03/25/23 08:24 DL Desktop 03/25/23 08:30 DL 03/25/23 08:24 WC - Today's Visit Information Type of service Follow-up Visit (Physician/OCCUPATIONAL MEDICINE SPECIALIST ) Arrival Mode Ambulatory Transfer Assistance None Patient Identification Verified (Name & Yes ) Patient Requires Transmission-Based No Precautions Height and Weight Body Mass Index (BMI) 27.2 BMI Classification Overweight Vital Signs Temperature (97.8 F-99.1 F) 97.5 F L Temperature Source Temporal Pulse Rate (60-100) 58 L Pulse Location Monitor Respiratory Rate (12-18) 18 Respiratory rate source Observation Blood Pressure (90/60-120/80) 142/44 H Blood Pressure Mean (mm Hg) 76 Source Monitor History Since Last Visit- (Skip if this is Patient's initial visit) Have you changed medications since your No last visit? Any new allergies or adverse reactions No Had a fall/change in ADL's that may No increase risk of falls Signs or symptoms of abuse and/or No neglect since last visit Has dressing in place as prescribed Yes Has compression in place as prescribed N/A Has offloadiing in place as prescribed N/A Experienced any changes in pain level or No management Pain Scale: 0-10 Numeric Is Patient Pain Free? Yes - Nurse 1 - General Ulcer Measurement Start: 03/25/23 08:22 Freq: Status: Active Protocol: Activity Type Activity Date Activity User E-sign Co-sign Detail Recorded Client Recorded Date Recorded By Document 03/25/23 08:24 DL [employer] 03/25/23 08:30 DL 03/25/23 08:24 Wound Center Nurse 1 #2- L LAT RIB/AXILLA -Current Size (cm) - Length 0.6 -Current Size (cm) - Width 2.8 -Current Size (cm) - Depth 0.5 -Total Square Cm 1.68 -Undermining/Tunneling Starts (O'clock 7 ) -Undermining/Tunneling Ends (O'clock) 11 -Maximum Distance (cm) 1.3 -Exudate Amt Medium -Exudate Type Serosanguineous -Wound Margin Thickened & Rolled Under -Granulation Amt Medium (34-66%) -Granulation Quality Red -Necrosis Amt Medium (34-66%) -Necrotic Tissue Type Adherent Slough -Structure Exposed N/A -Texture (Sangeeta-wound Skin Appearance) Scarring -Moisture (Sangeeta-wound Skin Appearance) No Abnormality -Color (Sangeeta-wound Skin Appearance) No Abnormality -Temperature (Sangeeta-wound Skin No Abnormality Appearance) (Pt Warm) -Ulcer Cleansing Rinsed/ Irrigated with Saline -Foul Odor after Cleansing No -Anesthetic Used 5% Lidocaine Gel #1- L Medial axilla/rib -Current Size (cm) - Length 0.4 -Current Size (cm) - Width 1.5 -Current Size (cm) - Depth 0.4 -Total Square Cm 0.60 -Exudate Amt Medium -Exudate Type Serosanguineous -Wound Margin Thickened & Rolled Under -Granulation Amt Small (1-33%) -Granulation Quality Pale -Necrosis Amt Large (67-100%) -Necrotic Tissue Type Adherent Slough -Texture (Sangeeta-wound Skin Appearance) Scarring -Moisture (Sangeeta-wound Skin Appearance) No Abnormality -Color (Sangeeta-wound Skin Appearance) No Abnormality -Temperature (Sangeeta-wound Skin No Abnormality Appearance) (Pt Warm) -Ulcer Cleansing Rinsed/ Irrigated with Saline -Foul Odor after Cleansing No -Anesthetic Used 5% Lidocaine Gel WC - Nurse 2 - General Ulcer CM Notes Start: 03/25/23 08:22 Freq: Status: Active Protocol: Activity Type Activity Date Activity User E-sign Co-sign Detail Recorded Client Recorded Date Recorded By Document 03/25/23 08:51 Laptop 03/25/23 08:56 03/25/23 08:51 Wound Center Nurse 2 #2- L LAT RIB/AXILLA -Time 08:52 -Correct Patient Yes -Correct Side, Site, Position Yes -Correct Procedure Yes -Procedure Performed Yes -Type of Procedure Debridement -Clinical Debridement Subcutaneous -Tissue Removed Subcutaneous -Post Debridement (cm) - Length 0.6 -Post Debridement (cm) - Width 3.0 -Post Debridement (cm) - Depth 0.8 -Total Square (Post) (cm) 1.80 -Area of Debridement (cm) - Length 0.6 -Area of Debridement (cm) - Width 3 -Total Square (Area) (cm) 1.8 -Tunneling No -Undermining/Tunneling No -Circular Undermining No -Wound/Ulcer Outcome Not Healed -Ulcer Cleansing Rinsed/ Irrigated with Saline -Foul Odor after Cleansing No -Bioengineered Tissue No -Bleeding Controlled with Pressure -Treatment Response Procedure Tolerated Well -Offloading No -Debridement - Subq, 1st 20sq cm No #1- L Medial axilla/rib -Time 08:52 -Correct Patient Yes -Correct Side, Site, Position Yes -Correct Procedure Yes -Procedure Performed Yes -Type of Procedure Debridement -Clinical Debridement Subcutaneous -Tissue Removed Subcutaneous -Post Debridement (cm) - Length 0.3 -Post Debridement (cm) - Width 2 -Post Debridement (cm) - Depth 0.5 -Total Square (Post) (cm) 0.6 -Area of Debridement (cm) - Length 0.3 -Area of Debridement (cm) - Width 2.0 -Total Square (Area) (cm) 0.60 -Tunneling No -Undermining/Tunneling No -Circular Undermining No -Wound/Ulcer Outcome Not Healed -Ulcer Cleansing Rinsed/ Irrigated with Saline -Foul Odor after Cleansing No -Bioengineered Tissue No -Bleeding Controlled with Pressure -Treatment Response Procedure Not Tolerated Well -Offloading No -Debridement - Subq, 1st 20sq cm Yes Pain Scale: 0-10 Numeric Is Patient Pain Free? Yes - Nurse 3 - General Ulcer D/C NN Start: 03/25/23 08:22 Freq: Status: Active Protocol: Activity Type Activity Date Activity User E-sign Co-sign Detail Recorded Client Recorded Date Recorded By Document 03/25/23 09:06 [facility] Desktop 03/25/23 09:08 [facility] 03/25/23 09:06 Wound Care Center Nurse 3 #2- L LAT RIB/AXILLA -Ulcer Cleansing Rinsed/ Irrigated with Saline -Foul Odor after Cleansing No -Primary Dressing Applied Aquacel Extra, Mepilex Border -Other Dressing per dl rotary pump operator -Aquacel Extra 1 -Mepilex Border 1 #1- L Medial axilla/rib -Ulcer Cleansing Rinsed/ Irrigated with Saline -Foul Odor after Cleansing No -Primary Dressing Applied Aquacel Extra, Mepilex Border -Other Dressing per dl rotary pump operator -Aquacel Extra 0 -Mepilex Border 0 Treatment Response Procedure Tolerated Well Pain Scale: 0-10 Numeric Is Patient Pain Free? Yes WC - Visit Discharge Discharge Condition Stable Ambulatory Status Ambulatory Transportation Private Auto Accompanied by Additional Wound Wound debrided: Left Axillary area ( Lateral ) Type of Debridement: Excisional debridement Anesthesia Used: 4% Lidocaine Solution Depth: Down to and including healthy tissue and in the subcutaneous layer Percentage of wound debrided: 100 Instrument Used: 5mm curette Tissue Removed: Slough and devitalized tissue Severity: Fat Layer Exposed Amount of bleeding with debridement: Mild Bleeding Controlled with: Pressure Patient tolerated procedure: Patient tolerated procedure well Assessment/Plan Assessment/Plan (1) Nonhealing surgical wound: CODE(S): T81.89XA - Other complications of procedures, not elsewhere classified, initial encounter QUALIFIERS: Encounter type: initial encounter Qualified Code(s): T81.89XA - Other complications of procedures, not elsewhere classified, initial encounter (2) Dehiscence of surgical wound: CODE(S): T81.31XA - Disruption of external operation (surgical) wound, not elsewhere classified, initial encounter QUALIFIERS: Encounter type: initial encounter Qualified Code(s): T81.31XA - Disruption of external operation (surgical) wound, not elsewhere classified, initial encounter (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 No new concerns reported at this time. Good granulation tissue appreciated. No significant drainage or skin maceration. Improvement in depth to the medial ulcer. Lateral, with no significant change. Now scheduled/plans to have surgery ( plastic ) at the [facility]. For now, continue Aquacel extra daily, cover with Adaptic and gauze. Change if soaked. Continue other chronic wound care management. Optimal protein intake, protein supplements, vitamin C, D and zinc. Their questions were answered and they were advised to let us know if they have any further questions or concerns. Follow up in 2 weeks.
[2023-04-08 08:21] VITALS: BP 143/41; PULSE 75; RESP 20; TEMP 35.4; BMI 27.2
--- NOTE | 2023-04-08 09:01 | PN.PCM_ITS ---
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 History of Wound: Mr. Hutchison is a 77 yo who is a transfer of care to [place]. Had been seen by another provider at this facility for non healing surgical wound/wound breakdown. Has been on several courses of antibiotics as well as topical antibiotics. S/p surgical intervention for Sarcoma done at the [facility] [place]. Prior to this, had 25 radiation therapy treatment for tumor size reduction. Per patient and his , surgical margins were cancer free post surgery. Progress of Wound: No new concerns at this time. Overall stable. Plan is for surgery at the end of April. Objective Data Objective Data Vital Signs: Vital Signs Temp Pulse Resp BP 95.7 F L 75 20 H 143/41 H 04/08/23 08:21 04/08/23 08:21 04/08/23 08:21 04/08/23 08:21 Weight: 169 lb Body Mass Index (BMI) 27.2 Charges/Coding Procedures Integumentary 111xxx-113xx: 68007 Nicole subq tissue 20 sq cm/< Physical Exam Const alert, oriented x3 and no apparent distress General Appearance: cooperative and comfortable HEENT normocephalic and head/scalp atraumatic Head and Scalp: normal to inspection Eyes EOMs intact bilaterally General Eye: normal appearance of both eyes Neck General: normal visual inspection Resp normal respiratory effort Effort and Inspection: able to speak in complete sentences Skin Wounds: wounds noted Neuro oriented x3, CN's II-XII intact bilaterally, moves all extremities and no focal motor deficits Psych mental status grossly normal, thought process normal, cooperative and affect normal Debridement Note Debridement Note Wound debrided: Left Axillary Area ( Medial ) Type of Debridement: Excisional debridement Anesthesia Used: 5% Lidocaine Gel Depth: Down to and including healthy tissue and in the subcutaneous layer Percentage of wound debrided: 100 Instrument Used: 5mm curette Tissue Removed: Slough and devitalized tissue Severity: Fat Layer Exposed Amount of bleeding with debridement: Mild Bleeding Controlled with: Pressure Patient tolerated procedure: Patient tolerated procedure well Post-Debridement Measurements and Additional Note: Post-Debridement Measurements/Treatment MIHIR - Nurse 1 - General Ulcer Assessment Start: 03/25/23 08:22 Freq: Status: Active Protocol: ONELIA Activity Type Activity Date Activity User E-sign Co-sign Detail Recorded Client Recorded Date Recorded By Document 03/25/23 08:24 DL Desktop 03/25/23 08:30 DL Document 04/08/23 08:21 DL Desktop 04/08/23 08:29 DL 03/25/23 04/08/23 08:24 08:21 - Today's Visit Information Type of service Follow-up Visit Follow-up Visit (Physician/EMPLOYEE BENEFITS COORDINATOR (Physician/EMPLOYEE BENEFITS COORDINATOR ) ) Arrival Mode Ambulatory Ambulatory Transfer Assistance None None Patient Identification Verified (Name & Yes ) Patient Requires Transmission-Based No No Precautions Height and Weight Body Mass Index (BMI) 27.2 27.2 BMI Classification Overweight Overweight Vital Signs Temperature (97.8 F-99.1 F) 97.5 F L 95.7 F L Temperature Source Temporal Temporal Pulse Rate (60-100) 58 L 75 Pulse Location Monitor Monitor Respiratory Rate (12-18) 18 20 H Respiratory rate source Observation Observation Blood Pressure (90/60-120/80) 142/44 H 143/41 H Blood Pressure Mean (mm Hg) 76 75 Source Monitor Monitor History Since Last Visit- (Skip if this is Patient's initial visit) Have you changed medications since your No No last visit? Any new allergies or adverse reactions No No Had a fall/change in ADL's that may No No increase risk of falls Signs or symptoms of abuse and/or No No neglect since last visit Have you been in the hospital since your No last visit? Has dressing in place as prescribed Yes Yes Has compression in place as prescribed N/A N/A Has offloadiing in place as prescribed N/A N/A Experienced any changes in pain level or No No management Pain Scale: 0-10 Numeric Is Patient Pain Free? Yes Yes - Nurse 1 - General Ulcer Measurement Start: 03/25/23 08:22 Freq: Status: Active Protocol: Activity Type Activity Date Activity User E-sign Co-sign Detail Recorded Client Recorded Date Recorded By Document 03/25/23 08:24 DL Desktop 03/25/23 08:30 DL Document 04/08/23 08:21 DL Desktop 04/08/23 08:29 DL 03/25/23 04/08/23 08:24 08:21 Wound Center Nurse 1 #2- L LAT RIB/AXILLA -Current Size (cm) - Length 0.6 0.5 -Current Size (cm) - Width 2.8 1.2 -Current Size (cm) - Depth 0.5 0.4 -Total Square Cm 1.68 0.60 -Undermining/Tunneling Starts (O'clock 7 ) -Undermining/Tunneling Ends (O'clock) 11 -Maximum Distance (cm) 1.3 -Exudate Amt Medium None Present -Exudate Type Serosanguineous Serosanguineous -Wound Margin Thickened & Thickened & Rolled Under Rolled Under -Granulation Amt Medium (34-66%) Large (67-100%) -Granulation Quality Red Pale,Lyman -Necrosis Amt Medium (34-66%) None Present (0 %) -Necrotic Tissue Type Adherent Slough -Structure Exposed N/A N/A -Texture (Sangeeta-wound Skin Appearance) Scarring Scarring -Moisture (Sangeeta-wound Skin Appearance) No Abnormality No Abnormality -Color (Sangeeta-wound Skin Appearance) No Abnormality No Abnormality -Temperature (Sangeeta-wound Skin No Abnormality No Abnormality Appearance) (Pt Warm) (Pt Warm) -Tenderness on Palpation (Sangeeta-wound No Skin Appearance) -Ulcer Cleansing Rinsed/ Soap and Water Irrigated with Saline -Foul Odor after Cleansing No No -Anesthetic Used 5% Lidocaine 5% Lidocaine Gel Gel #1- L Medial axilla/rib -Current Size (cm) - Length 0.4 1 -Current Size (cm) - Width 1.5 2.8 -Current Size (cm) - Depth 0.4 0.5 -Total Square Cm 0.60 2.8 -Undermining/Tunneling Starts (O'clock 7 ) -Undermining/Tunneling Ends (O'clock) 11 -Maximum Distance (cm) 0.8 -Exudate Amt Medium Medium -Exudate Type Serosanguineous Serosanguineous -Wound Margin Thickened & Thickened & Rolled Under Rolled Under -Granulation Amt Small (1-33%) Medium (34-66%) -Granulation Quality Pale Red -Necrosis Amt Large (67-100%) Medium (34-66%) -Necrotic Tissue Type Adherent Slough Adherent Slough -Structure Exposed N/A -Texture (Sangeeta-wound Skin Appearance) Scarring Scarring -Moisture (Sangeeta-wound Skin Appearance) No Abnormality No Abnormality -Color (Sangeeta-wound Skin Appearance) No Abnormality No Abnormality -Temperature (Sangeeta-wound Skin No Abnormality No Abnormality Appearance) (Pt Warm) (Pt Warm) -Tenderness on Palpation (Sangeeta-wound No Skin Appearance) -Ulcer Cleansing Rinsed/ Soap and Water Irrigated with Saline -Foul Odor after Cleansing No No -Anesthetic Used 5% Lidocaine 5% Lidocaine Gel Gel WC - Nurse 2 - General Ulcer CM Notes Start: 03/25/23 08:22 Freq: Status: Active Protocol: Activity Type Activity Date Activity User E-sign Co-sign Detail Recorded Client Recorded Date Recorded By Document 03/25/23 08:51 Laptop 03/25/23 08:56 Document 04/08/23 08:44 Desktop 04/08/23 08:50 03/25/23 04/08/23 08:51 08:44 Wound Center Nurse 2 #2- L LAT RIB/AXILLA -Time 08:52 08:44 -Correct Patient Yes Yes -Correct Side, Site, Position Yes Yes -Correct Procedure Yes Yes -Procedure Performed Yes Yes -Type of Procedure Debridement Debridement -Clinical Debridement Subcutaneous Subcutaneous -Tissue Removed Subcutaneous Subcutaneous -Post Debridement (cm) - Length 0.6 0.6 -Post Debridement (cm) - Width 3.0 3.0 -Post Debridement (cm) - Depth 0.8 1.0 -Total Square (Post) (cm) 1.80 1.80 -Area of Debridement (cm) - Length 0.6 0.6 -Area of Debridement (cm) - Width 3 3.0 -Total Square (Area) (cm) 1.8 1.80 -Tunneling No -Undermining/Tunneling No -Circular Undermining No -Wound/Ulcer Outcome Not Healed Not Healed -Ulcer Cleansing Rinsed/ Rinsed/ Irrigated with Irrigated with Saline Saline -Foul Odor after Cleansing No No -Bioengineered Tissue No No -Bleeding Controlled with Pressure Pressure -Treatment Response Procedure Procedure Tolerated Well Tolerated Well -Offloading No -Debridement - Subq, 1st 20sq cm No No #1- L Medial axilla/rib -Time 08:52 08:44 -Correct Patient Yes Yes -Correct Side, Site, Position Yes Yes -Correct Procedure Yes Yes -Procedure Performed Yes Yes -Type of Procedure Debridement Debridement -Clinical Debridement Subcutaneous Subcutaneous -Tissue Removed Subcutaneous Subcutaneous -Post Debridement (cm) - Length 0.3 0.3 -Post Debridement (cm) - Width 2 2.0 -Post Debridement (cm) - Depth 0.5 0.5 -Total Square (Post) (cm) 0.6 0.60 -Area of Debridement (cm) - Length 0.3 0.3 -Area of Debridement (cm) - Width 2.0 2.0 -Total Square (Area) (cm) 0.60 0.60 -Tunneling No -Undermining/Tunneling No -Circular Undermining No -Wound/Ulcer Outcome Not Healed -Ulcer Cleansing Rinsed/ Rinsed/ Irrigated with Irrigated with Saline Saline -Foul Odor after Cleansing No No -Bioengineered Tissue No No -Bleeding Controlled with Pressure Pressure -Treatment Response Procedure Not Procedure Tolerated Well Tolerated Well -Offloading No -Debridement - Subq, 1st 20sq cm Yes No Pain Scale: 0-10 Numeric Is Patient Pain Free? Yes Yes - Nurse 3 - General Ulcer D/C NN Start: 03/25/23 08:22 Freq: Status: Active Protocol: Activity Type Activity Date Activity User E-sign Co-sign Detail Recorded Client Recorded Date Recorded By Document 03/25/23 09:06 [facility] Desktop 03/25/23 09:08 [facility] Document 04/08/23 08:57 [facility] Desktop 04/08/23 08:58 [facility] 03/25/23 04/08/23 09:06 08:57 Wound Care Center Nurse 3 #2- L LAT RIB/AXILLA -Ulcer Cleansing Rinsed/ Rinsed/ Irrigated with Irrigated with Saline Saline -Foul Odor after Cleansing No No -Primary Dressing Applied Aquacel Extra, Aquacel Extra, Mepilex Border Mepilex Border -Other Dressing per dl cnc laser operator -Primary Dressing Covered/Secured with Dry Gauze -Aquacel Extra 1 1 -Mepilex Border 1 1 #1- L Medial axilla/rib -Ulcer Cleansing Rinsed/ Rinsed/ Irrigated with Irrigated with Saline Saline -Foul Odor after Cleansing No No -Primary Dressing Applied Aquacel Extra, Aquacel Extra, Mepilex Border Mepilex Border -Other Dressing per dl cnc laser operator -Primary Dressing Covered/Secured with Dry Gauze -Aquacel Extra 0 0 -Mepilex Border 0 0 Treatment Response Procedure Procedure Tolerated Well Tolerated Well Pain Scale: 0-10 Numeric Is Patient Pain Free? Yes Yes - Visit Discharge Discharge Condition Stable Stable Ambulatory Status Ambulatory Ambulatory Transportation Private Auto Private Auto Accompanied by Additional Wound Wound debrided: Left Axillary area ( Lateral ) Type of Debridement: Excisional debridement Anesthesia Used: 5% Lidocaine Gel Depth: Down to and including healthy tissue and in the subcutaneous layer Percentage of wound debrided: 100 Instrument Used: 5mm curette Tissue Removed: Slough and devitalized tissue Severity: Fat Layer Exposed Amount of bleeding with debridement: Mild Bleeding Controlled with: Pressure Patient tolerated procedure: Patient tolerated procedure well Assessment/Plan Assessment/Plan (1) Nonhealing surgical wound: CODE(S): T81.89XA - Other complications of procedures, not elsewhere classified, initial encounter QUALIFIERS: Encounter type: initial encounter Qualified Code(s): T81.89XA - Other complications of procedures, not elsewhere classified, initial encounter (2) Dehiscence of surgical wound: CODE(S): T81.31XA - Disruption of external operation (surgical) wound, not elsewhere classified, initial encounter QUALIFIERS: Encounter type: initial encounter Qualified Code(s): T81.31XA - Disruption of external operation (surgical) wound, not elsewhere classified, initial encounter (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 No new concerns reported at this time. Overall stable, still appears healthy. Now scheduled/plans to have surgery ( plastic ) at the [facility] and anticipated time is in April. For now, continue Aquacel extra daily, cover with Adaptic and gauze. Change if soaked. Continue other chronic wound care management. Optimal protein intake, protein supplements, vitamin C, D and zinc. Their questions were answered and they were advised to let us know if they have any further questions or concerns. Follow up in 2 weeks.
== END 2023-04-11 23:59 | disposition home or self-care (01) ==
LOC: WC 08:30
PROVIDERS: PCP Family Medicine; Referring Provider Family Medicine; Visit Provider Internal Medicine
DX: T81.31XA Disruption of external operation (surgical) wound, not elsewhere classified, initial encounter (principal); L98.492 Non-pressure chronic ulcer of skin of other sites with fat layer exposed; T81.89XA Other complications of procedures, not elsewhere classified, initial encounter; L59.8 Other specified disorders of the skin and subcutaneous tissue related to radiation; Y84.2 Radiological procedure and radiotherapy as the cause of abnormal reaction of the patient, or of later complication, without mention of misadventure at the time of the procedure; Z79.82 Long term (current) use of aspirin; Z79.890 Hormone replacement therapy; Z79.899 Other long term (current) drug therapy; Z92.3 Personal history of irradiation; Z85.831 Personal history of malignant neoplasm of soft tissue
CPT/HCPCS: 11042

== ENCOUNTER → 2023-10-28 | Outpatient (CLI) | payer MEDICARE, OTHER, SELFPAY ==
[2023-10-28 12:37] LABS: Absolute Lymphocyte Count 1.92 X10^3/uL (0.83-4.51); Absolute Neutrophil Count 10.4 X10^3/uL (2.0-7.7); Basophil# 0.07 X10^3/uL; Basophil% 0.5 % (0-1); Eosinophil# 0.09 X10^3/uL; Eosinophils% 0.7 % (0-5); Hemoglobin 9.7 g/dL (13.0-16.5); Lymphocyte # 1.92 X10^3/ul (0.83-4.51); Lymphocyte % 13.9 % (19-41); Mean Corp Hgb Conc 31.3 g/dL (32-36); Mean Corpuscular Hgb 21.6 pg (27.0-32.0); Mean Corpuscular Volume 68.9 fL (80-94); Monocyte# 0.95 X10^3/uL; Monocyte% 6.9 % (0-10); NRBC Flagged by Analyzer 0.2 % (0-5); Neutrophil # 10.44 X10^3/uL (2.7-7.7); Neutrophil % 75.8 % (47-70); Platelet Count 148 K/mm3 (150-450); RBC Distribution Width CV 19.9 % (11.6-14.6); RBC Distribution Width SD 46.8 fl (35.1-43.9); White Blood Count 13.8 K/mm3 (4.4-11.0)
== END | disposition home or self-care (01) ==
LOC: LAB 11:31
PROVIDERS: PCP Family Medicine; Referring Provider Internal Medicine Cardiovascular Disease; Visit Provider Internal Medicine Cardiovascular Disease
DX: R58 Hemorrhage, not elsewhere classified (principal)
CPT/HCPCS: 36415; 85025

== ENCOUNTER → 2024-07-03 | Outpatient (CLI) | payer MEDICARE, OTHER, SELFPAY ==
--- NOTE | 2024-07-03 09:49 | CDU_ITS ---
Reason For Study Reason For Study: Ischemic [place] Rt. Velocities/BP Lt. Velocities/BP Prox CCA 109.4/18.1 cm/sec. Prox CCA 87.5/11.7 cm/sec. Mid CCA 83.4/13.4 cm/sec. Mid CCA 88.6/18.2 cm/sec. Dist CCA 51.5/12.2 cm/sec. Dist CCA 62.2/12.7 cm/sec. Prox ICA 82.1/18.3 cm/sec. Prox ICA 60.0/16.0 cm/sec. Mid ICA 74.8/18.2 cm/sec. Mid ICA 72.1/21.5 cm/sec. Dist ICA 80.4/21.4 cm/sec. Dist ICA 56.9/16.6 cm/sec. Rt. ICA/CCA = 1.0. Lt. ICA/CCA = 0.8. Prox ECA 91.9/5.1 cm/sec. Prox ECA 88.6/9.5 cm/sec. Rt. Vert. 32.2/5.1 cm/sec. Lt. Vert. 67.7/17.1 cm/sec. Right Extracranial There is heterogeneous, irregular atherosclerotic plaque noted in the right common carotid artery. There is heterogeneous, irregular atherosclerotic plaque noted in the right internal carotid artery. There is intimal thickening but no significant atherosclerotic plaque noted in the right external carotid artery. Antegrade flow is noted in the right vertebral artery. Left Extracranial There is heterogeneous, irregular atherosclerotic plaque noted in the left common carotid artery. There is heterogeneous, irregular atherosclerotic plaque noted in the left internal carotid artery. There is intimal thickening but no significant atherosclerotic plaque noted in the left external carotid artery. Antegrade flow is noted in the left vertebral artery. Procedure Carotid Duplex 17575. This is a Carotid Duplex examination using B-mode, color flow and specral Doppler. The exam was diagnostic. Exam performed in department. VL/Carotid Duplex Ultrasound Interpretation Summary Mild (<50%) stenosis right extracranial internal carotid. Mild (<50%) stenosis left extracranial internal carotid. Flow within the vertebral arteries is antegrade bilaterally. Ordering Physician: Antwan Ford Referring Physician: Simone Pozo Performed By: Gonzalo Brown RVT
== END | disposition home or self-care (01) ==
PROVIDERS: PCP Family Medicine; Referring Provider Ophthalmology; Visit Provider Ophthalmology
DX: H16.012 Central corneal ulcer, left eye (principal); H35.82 Retinal ischemia; H53.9 Unspecified visual disturbance
CPT/HCPCS: 93880